=== PATIENT | female | born 1955 | race Caucasian/White ===

== ENCOUNTER → 2016-05-19 | Outpatient (CLI) | payer BC ==
--- NOTE | 2016-05-19 12:01 | CT ---
EXAMINATION TYPE: CT abdomen pelvis w con DATE OF EXAM: 05/19/2016 11:46 AM HISTORY: Colon Cancer progress study. CT DLP: 2206.70mGycm Automated Exposure Control for Dose Reduction was Utilized. CONTRAST: CT scan of the abdomen and pelvis is performed with IV Contrast, patient injected with 100 ml mL of O mnipaque 300. COMPARISON: CT abdomen pelvis September 20, 2015. PET/CT October 02, 2015. FINDINGS: LUNG BASES: There is new small right pleural effusion. There is new linear atelectatic change and/or scarring in both lung bases. LIVER/GB: There are new heterogeneous hypodense lesions scattered throughout the liver consistent wit h metastatic disease progression. For reference there is new 3.5 x 2.3 cm lesion anterior segment rig ht hepatic lobe on axial image 21. For reference there is new more posterior right hepatic lobe lesio n measuring 3.5 x 3.2 cm centrally on axial image 31. Diffuse or multifocal involvement of left lobe of liver is now present with marked heterogeneous hypodense area identified. Progression is noted. Ch olecystectomy clips are redemonstrated PANCREAS: No significant abnormality is seen. SPLEEN: Splenomegaly is redemonstrated measuring 14.4 cm on long axis coronal image 60 perhaps slight ly more prominent versus prior exam . ADRENALS: No significant abnormality is seen. KIDNEYS: Fitzpatrick catheter is seen in decompressed bladder. BOWEL: There is redemonstration of bowel containing ventral wall hernia. No suspicious bowel dilatati on is seen. Surgical changes from prior surgery with sutures at level of mid transverse colon and pro ximal sigmoid colon are redemonstrated. There is redemonstration of some prominence of fecal material present at both surgical levels consistent with mild stasis. UTERUS/ADNEXA: Uterus is surgically absent or markedly atrophic in appearance. LYMPH NODES: There is new abdominal adenopathy, for reference 3.0 x 2.2 cm perigastric lymph node ant erior to left adrenal gland is noted on axial image 23. For reference 2.0 x 1.6 cm lymph node charles h epatis anterior to IVC is noted on axial image 32. There is abnormal perigastric lymph node on axial image 18 also noted. OSSEOUS STRUCTURES: Hemangioma at L1 vertebral body level is redemonstrated. OTHER: No significant additional abnormality is seen. IMPRESSION: 1. Findings consistent with neoplastic progression as there is increase in size and number of diffuse hepatic metastatic disease. In addition there is new upper abdominal adenopathy or peritoneal deposi ts identified. RECIST CRITERIA: PROGRESSIVE DISEASE
== END | disposition home or self-care (01) ==
LOC: RADPROMAIN 11:02
PROVIDERS: ATTEND Internal Medicine Hematology & Oncology
DX: C18.9 Malignant neoplasm of colon, unspecified (principal)
CPT/HCPCS: 74177; Q9967

== ENCOUNTER 2016-05-20 10:50 | Inpatient (IN) | payer BC ==
[2016-05-20] MEDS ORDERED: SODIUM CHLORIDE 0.9% 1,000 ML IV STA (11:08)
[2016-05-20] MEDS ORDERED: SODIUM CHLORIDE 0.9% 500 ML IV STA (11:08)
--- NOTE | 2016-05-20 11:15 | ED ---
Weakness HPI - General Chief complaint: Weakness Stated complaint: Weakness Time Seen by Provider: 05/20/16 10:53 Source: patient, EMS Mode of arrival: EMS Limitations: no limitations - History of Present Illness Initial comments: This 60-year-old white female presents complaining of feeling weak and tired for the last 4 days. She had a temperature 100.6 earlier today. She's had a slight dry cough but denies any shortness of breath. She does have an indwelling Fitzpatrick catheter as well so denies any known urinary symptoms. She does have a somewhat complicated history. She apparently had colon cancer in 2013 which was treated surgically. They then found some liver lesions and she underwent chemotherapy this past year. She then was admitted to the hospital and found to have necrotizing fasciitis this past fall. She was transferred [facility] and underwent 8-9 surgical debridements. She subsequently spent rehab time and slept specialties for 49 days and then [facility]. She currently is at home still recovering from the necrotizing fasciitis but does have a visiting nurse daily. She still has chronic wounds that have been healing fairly well into her perineal region. She denies any other complaints or modifying factors. - Related Data Home Medications Medication Instructions Recorded Confirmed Hydrochlorothiazide [Hydrodiuril] 25 mg PO DAILY 11/11/13 02/18/16 Insulin Glargine,Hum.rec.anlog 20 units SQ HS 11/11/13 02/18/16 [Lantus Solostar] Lisinopril [Prinivil] 20 mg PO DAILY 11/19/14 02/18/16 ALPRAZolam [Xanax] 0.25 mg PO TID PRN 12/08/15 02/18/16 INSULIN LISPRO (humaLOG) [HumaLOG] See Protocol SQ AC-TID 12/08/15 02/18/16 Amino Acids/Protein Hydrolys 30 ml PO BID 02/18/16 02/18/16 [Pro-Stat Supplement] Amitriptyline HCl [Elavil] 25 mg PO HS 02/18/16 02/18/16 Ascorbic Acid [Vitamin C] 250 mg PO DAILY 02/18/16 02/18/16 Chlorpactin Powder 2 gm TOPICAL Q8H 02/18/16 02/18/16 Dakins Solution 1 applicate TOPICAL Q8H 02/18/16 02/18/16 Docusate Sodium [Dok] 100 mg PO BID 02/18/16 02/18/16 Gabapentin [Neurontin] 100 mg PO TID 02/18/16 02/18/16 HYDROcodone/APAP 7.5-325MG [Roosevelt 1 tab PO Q8H PRN 02/18/16 02/18/16 7.5-325] Ipratropium-Albuterol Nebulize 3 ml INHALATION Q4H PRN 02/18/16 02/18/16 [Duoneb 0.5 mg-3 mg/3 ml Soln] Levothyroxine Sodium [Synthroid] 150 mcg PO DAILY 02/18/16 02/18/16 Multivitamins, Thera [Multivitamin] 1 tab PO DAILY 02/18/16 02/18/16 Polyethylene Glycol 3350 [Miralax] 17 gm PO DAILY 02/18/16 02/18/16 Sennosides [Senokot] 8.6 mg PO BID 02/18/16 02/18/16 Warfarin [Coumadin] 3 mg PO DAILY 02/18/16 02/18/16 Zinc Sulfate [Orazinc] 220 mg PO DAILY 02/18/16 02/18/16 fentaNYL 25MCG/HR PATCH [Duragesic 25 mcg TRANSDERM Q72H 02/18/16 02/18/16 25MCG/HR] Allergies Allergy/AdvReac Type Severity Reaction Status Date / Time No Known Allergies Allergy Verified 05/20/16 10:51 Review of Systems ROS Statement: Those systems with pertinent positive or pertinent negative responses have been documented in the HPI. ROS Other: All systems not noted in ROS Statement are negative. Past Medical History Past Medical History: Cancer, Diabetes Mellitus, GERD/Reflux, Hyperlipidemia, Hypertension, Liver Disease, Skin Disorder, Thyroid Disorder Additional Past Medical History / Comment(s): heart murmer, colon cancer, liver cancer, MELANOMA, liver lesions on CT scan 09/10 History of Any Multi-Drug Resistant Organisms: None Reported Past Surgical History: Bowel Resection, Cholecystectomy, Hysterectomy Additional Past Surgical History / Comment(s): BOWEL RESECTION 10/2013- colostomy /later reversal. bilateral oopherectomy, exploratory laperotomy, SURG RT THIGH D/T MELANOMA. Past Anesthesia/Blood Transfusion Reactions: No Reported Reaction Past Psychological History: Anxiety Additional Psychological History / Comment(s): SEASONAL AFFECTIVE DISORDER Smoking Status: Never smoker Past Alcohol Use History: None Reported Past Drug Use History: None Reported - Past Family History Sister(s) Family Medical History: Cancer Additional Family Medical History / Comment(s): Colon General Exam - General Exam Comments Initial Comments: GENERAL: The patient is well nourished and well hydrated. VITAL SIGNS: Heart rate, blood pressure, respiratory rate reviewed as recorded in nurse's notes. EYES: Pupils are round and reactive. Extraocular movements are intact. No conjunctival / lid redness or swelling. ENT: No external evidence of injury, swelling, or ecchymosis. Airway is patent. Throat is clear. NECK: Nontender. No swelling or evidence of injury. No subcutaneous emphysema. Trachea is midline. No thyroid mass. HEART: Regular rate and rhythm. Good peripheral pulses. LUNGS/CHEST: Breath sounds clear and equal bilaterally. No rales, rhonchi, or wheezes. No ecchymosis, subcutaneous emphysema, or tenderness. ABDOMEN: Abdomen soft without tenderness. No palpable masses or organomegaly. No peritoneal signs. No abdominal wall swelling or ecchymosis. EXTREMITIES: No extremity tenderness. Normal muscle tone and function. No thoracolumbar tenderness. NEUROLOGIC: Sensation is grossly intact. Cranial nerve exam reveals face is symmetrical, tongue is midline, speech is clear. SKIN: There is healing wounds noted to the right groin as well as the perineal/ perirectal region. This appears to be healing fairly well. PSYCHIATRIC: Alert and oriented. Appropriate behavior and judgment. Limitations: no limitations Course Vital Signs 05/20/16 05/20/16 10:51 12:06 Temperature 99.3 F Pulse Rate 82 75 Respiratory 16 16 Rate Blood Pressure 141/60 119/66 O2 Sat by Pulse 98 93 L Oximetry Medical Decision Making - Medical Decision Making The patient was seen and examined. All diagnostics were reviewed. EKG shows a normal sinus rhythm at a rate of 74. No acute ST-T wave changes are noted. The FL interval is 134, QRS duration is 84 and QTC intervals 428. The chest x- ray shows multiple bilateral apparently healing rib fractures with pleural thickening compared to last exam. There is patchy atelectasis in the right lung. The urinalysis does show significant evidence of infection. She does have an indwelling Fitzpatrick catheter in place. There are other lab abnormalities, please review. There is a moderate leukocytosis. Overall, it is felt as though she does have urinary tract infection with the degree of sepsis. It is felt that she would require admission to the hospital for further treatment. She does have a history of cancer and is immunocompromised. She feels very weak and has a temperature. Rocephin is initiated. Case will be discussed with internal medicine in the near future and patient will be admitted to the hospital for further treatment. - Lab Data Result diagrams: 05/20/16 11:05 05/20/16 11:05 Lab Results 05/20/16 05/20/16 05/20/16 Range/Units 11:05 11:05 11:05 WBC (3.8-10.6) k/uL RBC (3.80-5.40) m/uL Hgb (11.4-16.0) gm/dL Hct (34.0-46.0) % MCV (80.0-100.0) fL MCH (25.0-35.0) pg MCHC (31.0-37.0) g/dL RDW (11.5-15.5) % Plt Count (150-450) k/uL Neutrophils % % Lymphocytes % % Monocytes % % Eosinophils % % Basophils % % Neutrophils # (1.3-7.7) k/uL Lymphocytes # (1.0-4.8) k/uL Monocytes # (0-1.0) k/uL Eosinophils # (0-0.7) k/uL Basophils # (0-0.2) k/uL Anisocytosis Microcytosis Sodium 131 L (137-145) mmol/L Potassium 5.0 (3.5-5.1) mmol/L Chloride 92 L (98-107) mmol/L Carbon Dioxide 28 (22-30) mmol/L Anion Gap 11 mmol/L BUN 18 H (7-17) mg/dL Creatinine 0.89 (0.52-1.04) mg/dL Est GFR (MDRD) Af Amer >60 (>60 ml/min/1.73 sqM) Est GFR (MDRD) Non-Af >60 (>60 ml/min/1.73 sqM) Glucose 289 H (74-99) mg/dL Plasma Lactic Acid Sacha 1.9 (0.7-2.0) mmol/L Calcium 8.5 (8.4-10.2) mg/dL Phosphorus 3.9 (2.5-4.5) mg/dL Magnesium 1.7 (1.6-2.3) mg/dL Total Bilirubin 1.4 H (0.2-1.3) mg/dL AST 87 H (14-36) U/L ALT 38 (9-52) U/L Alkaline Phosphatase 444 H (38-126) U/L Total Protein 6.8 (6.3-8.2) g/dL Albumin 3.0 L (3.5-5.0) g/dL Urine Color Urine Appearance (Clear) Urine pH (5.0-8.0) Ur Specific [place] (1.001-1.035) Urine Protein (Negative) Urine Glucose (UA) (Negative) Urine Ketones (Negative) Urine Blood (Negative) Urine Nitrite (Negative) Urine Bilirubin (Negative) Urine Urobilinogen (<2.0) mg/dL Ur Leukocyte Esterase (Negative) Urine RBC (0-5) /hpf Urine WBC (0-5) /hpf Urine Bacteria (None) /hpf Urine Mucus (None) /hpf Urine Yeast (Budding) (None) /hpf Influenza Type A RNA Not Detected (Not Detectd) Influenza Type B (PCR) Not Detected (Not Detectd) 05/20/16 05/20/16 Range/Units 11:05 11:05 WBC 10.7 H (3.8-10.6) k/uL RBC 4.02 (3.80-5.40) m/uL Hgb 10.3 L (11.4-16.0) gm/dL Hct 31.8 L (34.0-46.0) % MCV 79.2 L (80.0-100.0) fL MCH 25.7 (25.0-35.0) pg MCHC 32.4 (31.0-37.0) g/dL RDW 17.5 H (11.5-15.5) % Plt Count 299 (150-450) k/uL Neutrophils % 85 % Lymphocytes % 7 % Monocytes % 4 % Eosinophils % 1 % Basophils % 0 % Neutrophils # 9.2 H (1.3-7.7) k/uL Lymphocytes # 0.8 L (1.0-4.8) k/uL Monocytes # 0.4 (0-1.0) k/uL Eosinophils # 0.1 (0-0.7) k/uL Basophils # 0.0 (0-0.2) k/uL Anisocytosis Slight Microcytosis Slight Sodium (137-145) mmol/L Potassium (3.5-5.1) mmol/L Chloride (98-107) mmol/L Carbon Dioxide (22-30) mmol/L Anion Gap mmol/L BUN (7-17) mg/dL Creatinine (0.52-1.04) mg/dL Est GFR (MDRD) Af Amer (>60 ml/min/1.73 sqM) Est GFR (MDRD) Non-Af (>60 ml/min/1.73 sqM) Glucose (74-99) mg/dL Plasma Lactic Acid Sacha (0.7-2.0) mmol/L Calcium (8.4-10.2) mg/dL Phosphorus (2.5-4.5) mg/dL Magnesium (1.6-2.3) mg/dL Total Bilirubin (0.2-1.3) mg/dL AST (14-36) U/L ALT (9-52) U/L Alkaline Phosphatase (38-126) U/L Total Protein (6.3-8.2) g/dL Albumin (3.5-5.0) g/dL Urine Color Coffee Urine Appearance Turbid H (Clear) Urine pH 5.5 (5.0-8.0) Ur Specific [place] 1.026 (1.001-1.035) Urine Protein 2+ H (Negative) Urine Glucose (UA) Trace H (Negative) Urine Ketones Negative (Negative) Urine Blood Trace H (Negative) Urine Nitrite Positive H (Negative) Urine Bilirubin 1+ H (Negative) Urine Urobilinogen 6.0 (<2.0) mg/dL Ur Leukocyte Esterase Large H (Negative) Urine RBC 51 H (0-5) /hpf Urine WBC >182 H (0-5) /hpf Urine Bacteria Many H (None) /hpf Urine Mucus Few H (None) /hpf Urine Yeast (Budding) Many H (None) /hpf Influenza Type A RNA (Not Detectd) Influenza Type B (PCR) (Not Detectd) Disposition Clinical Impression: Diabetes mellitus, Weakness, Sepsis secondary to UTI, Fever, History of necrotising fasciitis, Hyperglycemia, Anemia, Hypochloremia, Hyponatremia, Liver cancer, Rib fractures, Atelectasis Disposition: ADMITTED IP TO THIS HOSP Condition: Fair Referrals: Haris Mcghee MD [Primary Care Provider] - 1-2 days Time of Disposition: 12:12 Decision Date: 05/20/16 Decision Time: 12:12
[2016-05-20 11:40] LABS: Anisocytosis Slight; Basophils % (A) 0 %; CH 25.6; CHCM 32.3; Eosinophils # (A) 0.1 k/uL (0-0.7); Eosinophils % (A) 1 %; HCT 31.8 % (34.0-46.0); HDW 2.73; HGB 10.3 gm/dL (11.4-16.0); Luc # (Auto) 0.25; Luc % (Auto) 2; Lymphocytes # (A) 0.8 k/uL (1.0-4.8); Lymphocytes % (A) 7 %; MCH 25.7 pg (25.0-35.0); MCHC 32.4 g/dL (31.0-37.0); MCV 79.2 fL (80.0-100.0); Mean Platelet Volume 7.5; Microcytosis Slight; Monocytes # (A) 0.4 k/uL (0-1.0); Monocytes % (A) 4 %; Neutrophils # (A) 9.2 k/uL (1.3-7.7); Neutrophils % (A) 85 %; RBC 4.02 m/uL (3.80-5.40); RDW 17.5 % (11.5-15.5); WBC 10.7 k/uL (3.8-10.6); WBC (Perox) 11.37
[2016-05-20 11:50] LABS: Appearance,Urine Turbid (Clear); Bacteria,Urine Many /hpf; Bilirubin,Urine 1+ (Negative); Glucose,Urine (UA) Trace (Negative); Ketones,Urine Negative (Negative); Leukocyte Esterase,Urine Large (Negative); Mucus,Urine Few /hpf; Nitrite,Urine Positive (Negative); PH, Urine 5.5 (5.0-8.0); Particle Count 50648; Protein,Urine 2+ (Negative); RBC,Urine 51 /hpf (0-5); Specific Gravity,Urine 1.026 (1.001-1.035); UA Billing (MACRO vs. MICRO) MICRO; WBC,Urine >182 /hpf (0-5)
[2016-05-20 11:52] LABS: ALT 38 U/L (9-52); AST 87 U/L (14-36); Alkaline Phosphatase 444 U/L (38-126); Anion Gap 11 mmol/L; Blood Urea Nitrogen 18 mg/dL (7-17); Calcium 8.5 mg/dL (8.4-10.2); Carbon Dioxide 28 mmol/L (22-30); Chloride 92 mmol/L (98-107); Glucose 289 mg/dL (74-99); Magnesium 1.7 mg/dL (1.6-2.3); Non-African American GFR(MDRD) >60 (>60 ml/min/1.73 sqM); Phosphorous 3.9 mg/dL (2.5-4.5); Sodium 131 mmol/L (137-145); Total Bilirubin 1.4 mg/dL (0.2-1.3); Total Protein 6.8 g/dL (6.3-8.2)
--- NOTE | 2016-05-20 12:08 | XR ---
EXAMINATION TYPE: XR chest 2V DATE OF EXAM: 05/20/2016 12:00 PM COMPARISON: 12/10/2015 HISTORY: Cough and fever TECHNIQUE: Frontal and lateral views of the chest are obtained. FINDINGS: Heart and mediastinum are normal. There are multiple bilateral old healed rib fractures. T here is a right-sided central venous catheter with the tip in the superior vena cava. There are chest leads. There is no sign of pleural effusion. There is mild linear density in the right middle lobe. There is mild linear density at the right posterior lung base. IMPRESSION: There are new multiple bilateral apparent healing rib fractures with pleural thickening compared to last exam. Normal heart. Patchy atelectasis in the right lung.
[2016-05-20 12:17] LABS: INR 1.5 (<1.1); Prothrombin Time 14.2 sec (9.0-12.0)
[2016-05-20 12:19] LABS: Creatine Kinase 128 U/L (30-135)
[2016-05-20] MEDS ORDERED: ACETAMINOPHEN TAB 325 MG TAB PO PRN (12:24)
[2016-05-20] MEDS ORDERED: ONDANSETRON 4 MG/2 ML VIAL IVP PRN (12:24)
[2016-05-20] MEDS ORDERED: NALOXONE 0.4 MG/ML 1 ML VIAL IV PRN (12:24)
[2016-05-20 12:32] LABS: Creatine Kinase MB <0.2 ng/mL (0.0-2.4); Troponin I <0.012 ng/mL (0.000-0.034)
[2016-05-20 12:52] LABS: Hemoglobin A1C 8.3 % (4.2-6.1)
--- NOTE | 2016-05-20 13:15 | P.HPIM ---
History of Present Illness H&P Date: 05/20/16 Chief Complaint: UTI with sepsis This is a 60-year-old female one of Dr. Mcghee with a previous medical history significant for hypertension and hypertensive cardiovascular disease, diabetes mellitus type 2, hyperthyroidism, melanoma, obesity, patient was diagnosed with colon cancer back in 2013 underwent partial colectomy has been under the surveillance screening with Dr. Solis when she was diagnosed with recurrence of her disease back in August 2015 after she had a computed tomographic scan that showed a liver metastatic case is ended up going for biopsy that confirmed the diagnosis of adenocarcinoma of the colon and subsequently underwent PET scan in 10/05/2015 and she had a port placed and did receive 4 cycles of chemotherapy in the form of Avastin, 5 floor uracil, and cisplatin, patient ended up seeing a equipment operator wage hand at [facility] Dr. Barr, was supposed to remove half of the liver but because of the advanced nature of that metastatic disease and being closer to a blood vessel it was decided to send the patient for more chemotherapy before deciding on any surgical intervention, patient unfortunately developed to have a boil in her right labia back in November 2015 where she was found to have a severe diabetic ketoacidosis after she was admitted to the hospital and she was found to have a glucose of 800 was treated for that and she was found to have an elevated d- dimer for which she underwent CT angiography that showed bilateral pulmonary emboli was started on heparin drip at that time she was admitted to the intensive care unit at our institution and she was seen by pulmonary medicine as well as by oncology and she was complaining of increased pain in the left groin and she was diagnosed with necrotizing fasciitis subsequently she was seen by general surgery Dr. Felipe ended up going for surgery however because of her status she ended up getting transferred to [facility] for further care was intubated and she stayed there for about 2 weeks and after that she went to [facility] on 12/29/2015 and left to [facility] on the [place] for physical therapy rehabilitation and she was under my care at that point up until recently when she was discharged home and she was supposed to follow-up with her doctor as an outpatient, patient apparently underwent computed tomography scan of the abdomen yesterday that was ordered by for reevaluation of her metastatic disease and developed to have generalized weakness and not able to do much she ended up coming to the ER after she contacted her oncologist she was found to have urinary tract infection with sepsis she was given 1 dose of Rocephin was admitted to hospital urine culture as well as blood culture were obtained. Review of Systems Constitutional: Reports fatigue, Reports malaise, Reports weakness, Denies weight gain, Denies weight loss Eyes: denies blurred vision, denies bulging eye, denies decreased vision Ears: deny: decreased hearing Ears, nose, mouth and throat: Denies dysphagia, Denies neck lump, Denies swelling in throat, Denies sore throat Cardiovascular: Reports high blood pressure, Denies chest pain, Denies dyspnea on exertion, Denies edema, Denies paroxysmal nocturnal dyspnea, Denies phlebitis , Denies rapid heart beat, Denies shortness of breath Respiratory: Denies congestion, Denies cough, Denies cough with sputum, Denies home oxygen, Denies sleep apnea, Denies snoring, Denies wheezing Gastrointestinal: Denies abdominal pain, Denies bloating, Denies BRBPR, Denies excessive gas, Denies heartburn, Denies hematemesis, Denies melena, Denies nausea, Denies vomiting Genitourinary: Reports dysuria, Denies hematuria Menstruation: Reports postmenopausal Musculoskeletal: Denies myalgias Musculoskeletal: absent: ankle pain, ankle stiffness, ankle swelling, elbow pain , elbow stiffness, elbow swelling, foot pain, foot stiffness, foot swelling, hand pain, hand stiffness, hand swelling, hip pain, hip stiffness, hip swelling , knee pain, knee stiffness, knee swelling, shoulder pain, shoulder stiffness, shoulder swelling, wrist pain, wrist stiffness, wrist swelling Integumentary: Reports wounds (Right groin wound secondary to necrotizing fasciitis surgery) Neurological: Denies numbness, Denies weakness Psychiatric: Denies anxiety, Denies depression Endocrine: Denies fatigue, Denies weight change Past Medical History Past Medical History: Cancer, Diabetes Mellitus, GERD/Reflux, Hyperlipidemia, Hypertension, Liver Disease, Pulmonary Embolus (PE), Skin Disorder, Thyroid Disorder Additional Past Medical History / Comment(s): heart murmer, colon cancer, liver cancer, MELANOMA, liver lesions on CT scan 09/10 History of Any Multi-Drug Resistant Organisms: None Reported Past Surgical History: Bowel Resection, Cholecystectomy, Hysterectomy Additional Past Surgical History / Comment(s): BOWEL RESECTION 10/2013- colostomy /later reversal. bilateral oopherectomy, exploratory laperotomy, SURG RT THIGH D/T MELANOMA, exploratory laparotomy with sigmoidectomy, loop colostomy with colostomy reversal, resection of melanoma, total abdominal hysterectomy with bilateral salpingo-oophorectomy, EGD and colonoscopy 2014, necrotizing fasciitis of the right labia post 9 surgical interventions an initial wound greater than 45 cm Past Anesthesia/Blood Transfusion Reactions: No Reported Reaction Past Psychological History: Anxiety Additional Psychological History / Comment(s): SEASONAL AFFECTIVE DISORDER Smoking Status: Never smoker Past Alcohol Use History: None Reported Past Drug Use History: None Reported - Past Family History Sister(s) Family Medical History: Cancer, Diabetes Mellitus (Patient has 2 sisters one with diabetes mellitus type 2 and has never ) Additional Family Medical History / Comment(s): Colon Mother Family Medical History: Diabetes Mellitus, Hypertension (Mother is 87-year-old has history of diabetes and hypertension.) Father Family Medical History: Renal Disease (Father at age of 74 from acute renal failure.) Brother(s) Family Medical History: No Reported History (Patient has 2 brothers no major medical problems.) Medications and Allergies Home Medications Medication Instructions Recorded Confirmed Type Insulin Glargine,Hum.rec.anlog 30 units SQ HS 11/11/13 05/20/16 History [Lantus Solostar] Lisinopril [Prinivil] 20 mg PO DAILY 11/19/14 05/20/16 History ALPRAZolam [Xanax] 0.25 mg PO TID PRN 12/08/15 05/20/16 History INSULIN LISPRO (humaLOG) [HumaLOG] See Protocol SQ AC-TID 12/08/15 05/20/16 History Amitriptyline HCl [Elavil] 25 mg PO HS 02/18/16 05/20/16 History Gabapentin [Neurontin] 100 mg PO Q8H 02/18/16 05/20/16 History Hydrochlorothiazide 25 mg PO DAILY 05/20/16 05/20/16 History Levothyroxine Sodium [Synthroid] 175 mcg PO DAILY 05/20/16 05/20/16 History Ondansetron HCl [Zofran] 4 mg PO Q6H PRN 05/20/16 05/20/16 History Rivaroxaban [Xarelto] 15 mg PO DAILY 05/20/16 05/20/16 History Allergies Allergy/AdvReac Type Severity Reaction Status Date / Time No Known Allergies Allergy Verified 05/20/16 10:51 Physical Exam Vitals: Vital Signs Temp Pulse Resp BP Pulse Ox 05/20/16 12:06 75 16 119/66 93 L 05/20/16 10:51 99.3 F 82 16 141/60 98 Intake and Output 05/19/16 05/20/16 05/20/16 22:59 06:59 14:59 Other: Weight 110.677 kg Patient Weight 05/21/16 06:59 Weight 110.677 kg - Constitutional General appearance: mild distress, obese - EENT Eyes: anicteric sclerae, EOMI, PERRLA, no ptosis, no scleral icterus, normal appearance ENT: NA/AT, normal oropharynx, no thrush Ears: bilateral: normal - Neck Neck: no lymphadenopathy, normal ROM, no rigidity, no stridor, no thyromegaly Carotids: bilateral: upstroke normal Thyroid: bilateral: normal size - Respiratory Respiratory: bilateral: diminished, negative: dullness, rales, rhonchi, wheezing , prolonged expiration, prolonged inspiration - Cardiovascular Rhythm: regular Heart sounds: normal: S1, S2 Abnormal Heart Sounds: systolic murmur - Gastrointestinal General gastrointestinal: normal bowel sounds, soft, no splenomegaly, no tenderness, umbilical hernia, ventral hernia - Integumentary Integumentary: normal, ulcer (There is one in the right groin secondary to muscle surgical intervention for necrotizing fasciitis) - Neurologic Neurologic: CNII-XII intact - Musculoskeletal Musculoskeletal: gait normal - Psychiatric Psychiatric: A&O x's 3, appropriate affect, intact judgment & insight Results CBC & Chem 7: 05/20/16 11:05 05/20/16 11:05 Labs: Abnormal Lab Results - Last 24 Hours (Table) 05/20/16 05/20/16 05/20/16 Range/Units 11:05 11:05 11:05 WBC 10.7 H (3.8-10.6) k/uL Hgb 10.3 L (11.4-16.0) gm/dL Hct 31.8 L (34.0-46.0) % MCV 79.2 L (80.0-100.0) fL RDW 17.5 H (11.5-15.5) % Neutrophils # 9.2 H (1.3-7.7) k/uL Lymphocytes # 0.8 L (1.0-4.8) k/uL PT 14.2 H (9.0-12.0) sec Sodium 131 L (137-145) mmol/L Chloride 92 L (98-107) mmol/L BUN 18 H (7-17) mg/dL Glucose 289 H (74-99) mg/dL Total Bilirubin 1.4 H (0.2-1.3) mg/dL AST 87 H (14-36) U/L Alkaline Phosphatase 444 H (38-126) U/L Albumin 3.0 L (3.5-5.0) g/dL Urine Appearance (Clear) Urine Protein (Negative) Urine Glucose (UA) (Negative) Urine Blood (Negative) Urine Nitrite (Negative) Urine Bilirubin (Negative) Ur Leukocyte Esterase (Negative) Urine RBC (0-5) /hpf Urine WBC (0-5) /hpf Urine Bacteria (None) /hpf Urine Mucus (None) /hpf Urine Yeast (Budding) (None) /hpf 05/20/16 Range/Units 11:05 WBC (3.8-10.6) k/uL Hgb (11.4-16.0) gm/dL Hct (34.0-46.0) % MCV (80.0-100.0) fL RDW (11.5-15.5) % Neutrophils # (1.3-7.7) k/uL Lymphocytes # (1.0-4.8) k/uL PT (9.0-12.0) sec Sodium (137-145) mmol/L Chloride (98-107) mmol/L BUN (7-17) mg/dL Glucose (74-99) mg/dL Total Bilirubin (0.2-1.3) mg/dL AST (14-36) U/L Alkaline Phosphatase (38-126) U/L Albumin (3.5-5.0) g/dL Urine Appearance Turbid H (Clear) Urine Protein 2+ H (Negative) Urine Glucose (UA) Trace H (Negative) Urine Blood Trace H (Negative) Urine Nitrite Positive H (Negative) Urine Bilirubin 1+ H (Negative) Ur Leukocyte Esterase Large H (Negative) Urine RBC 51 H (0-5) /hpf Urine WBC >182 H (0-5) /hpf Urine Bacteria Many H (None) /hpf Urine Mucus Few H (None) /hpf Urine Yeast (Budding) Many H (None) /hpf Thrombosis Risk Factor Assmnt - DVT/VTE Prophylaxis DVT/VTE Prophylaxis: Pharmacologic Prophylaxis ordered Assessment and Plan Plan: Assessment and plan: 1. UTI with sepsis. Check urine culture and blood culture, start the patient on Rocephin 1 g IV piggyback every 24 hours. Obtain ID consultation from Dr. Rodriguez. 2. Bilateral pulmonary emboli. Continue patient on Xarelto 15mg orally bid. 3. History of necrotizing fasciitis of the right groin status post multiple surgical intervention. Continue current local care with Dakin solution for the right groin. 4. Diabetes mellitus type 2. Continue Lantus 30 units at bedtime along with sliding scale insulin. BGM before each meal and at bedtime. 5. Stage IV colon cancer with liver metastasis. Hematology oncology consultation, patient did have a computed tomography scan of the abdomen yesterday the result of which still pending. 6. Hypertension and hypertensive cardiovascular disease. Continue lisinopril 20 mg orally once every day. 7. Hypothyroidism. Continue patient on Synthroid 175 g orally once every day. 8. Bilateral lower extremity edema. Continue patient on hydrochlorothiazide 25 mg orally once every day. 9. Anxiety and panic attacks. Continue patient on Xanax 0.25 milligrams orally 2 times every day as needed. 10. Diabetic polyneuropathy. Continue gabapentin 100 mg orally 3 times every day and amitriptyline 25 mg at bedtime. 11. Constipation. Continue patient on current bowel care. 12. DVT prophylaxis. Continue Xarelto 15 mg orally bid. 13. GI prophylaxis. Continue patient on PPI. 14. Generalized weakness. Physical therapy evaluation tomorrow morning. 15. Full code. 16. Prognosis is guarded.
[2016-05-20 13:26] LABS: Glucose,Whole Blood 282 mg/dL (75-99)
[2016-05-20 13:43] VITALS: BMI 40.6
[2016-05-20] MEDS: INSULIN LISPRO (humaLOG) 300 UNIT/3 ML VIAL SQ SCH ×3 (14:20→21:24)
--- NOTE | 2016-05-20 16:06 | CONS ---
DATE OF CONSULTATION: 05/20/2016 REASON FOR CONSULTATION: Urinary tract infection and sepsis. HISTORY OF PRESENT ILLNESS: The patient is a 60-year-old female with recently complicated past medical history including an episode of a necrotizing fasciitis involving the right groin and posterior thigh area for which the patient did have initial surgery here and subsequently was transferred to [facility]. After stabilization, the patient was in [facility] followed by [facility] on the [place] and now at home and currently getting her local wound care through Dr. Dhillon. The patient's last chemo has been in November 2015 and has been advised by her oncologist if she has any fever above 100.4 that she needs go to the ER. The patient did have a CT of her abdomen and pelvis done yesterday. It did show overall progression of her liver metastasis. The patient did have a fever of 100.6 this morning. The patient has been feeling weak and lethargic. Subsequently patient presented to the hospital for further evaluation. The patient denies any URI symptom. She has very mild cough, but denies having any shortness of breath or any chest pain. No sputum production. The patient denies significant abdominal pain. The patient did have chronic indwelling Fitzpatrick catheter. It was last changed about 2 weeks ago. referable to the same. The patient denies having any diarrhea. The wounds on the right groin extending to the posterior thigh area currently being treated with Aquacel Silver dressing with no significant symptoms referable to the same. Patient with fever of 99.3, white count was 10.7. She did have a UA obtained from the Fitzpatrick that was positive getting the diagnosis of urinary tract infection. She was started on Rocephin and admitted to the hospital. I was asked to see the patient for further recommendation regarding antibiotic therapy. She did have influenza PCR that was negative. Chest x-ray showed some atelectasis, but no definite pneumonia. REVIEW OF SYSTEMS: CONSTITUTIONAL: Positive for weakness and low-grade fever. EYES: No complaint. ENT: No complaint. RESPIRATORY: As per HPI. CARDIOVASCULAR: No complaint. GENITOURINARY: As per HPI. GASTROINTESTINAL: No complaint. MUSCULOSKELETAL: No complaint. INTEGUMENTARY: No complaint. PSYCHOLOGIC: No complaint. ENDOCRINE: No complaint. NEUROLOGIC: No complaint. PAST MEDICAL HISTORY: Metastatic colon cancer, necrotizing fasciitis, diabetes mellitus, hypertension, hyperlipidemia, pulmonary embolism, hypothyroidism. PAST SURGICAL HISTORY: Bowel resection, cholecystectomy, hysterectomy and extensive dissection of the skin and soft tissue of the groin and posterior thigh area for necrotizing fasciitis. SOCIAL HISTORY: No history of smoking, drinking or drug use. FAMILY HISTORY: Sister with a history of diabetes and colon cancer. Mother with history of hypertension and diabetes. Father with history of renal disease. ALLERGIES: No known drug allergies. MEDICATIONS: Currently include the patient is on Tylenol, Xanax, Elavil, Rocephin 1 gram daily. She is on Neurontin, hydrochlorothiazide, Lantus, Humalog, Synthroid, Zestril, Narcan, Zofran, Protonix, Xarelto. On examination, blood pressure is 153/88 with a pulse of 83. Temperature 98.8. She is 98% on room air. General description is a middle-age female lying in bed in no distress. No tachypnea or accessory muscle of respiration use. HEENT examination shows pallor. There is no scleral icterus. Oral mucous membrane is dry. NECK: Trachea central. There is no thyromegaly. LUNGS: Unlabored breathing. Clear to auscultation anteriorly. No wheeze or crackle. HEART: S1, S2. Regular rate and rhythm. ABDOMEN: Soft, no tenderness. No guarding or rigidity. Examination of the right groin and posterior thigh wound with no significant slough tissue. No surrounding erythema or any foul smelling drainage. GENITOURINARY: The patient did have Fitzpatrick catheter draining some dark urine. NEUROLOGICAL: The patient is awake, alert, oriented x3. Mood and affect normal. LABS: Hemoglobin is 10.1, white count of 10.7 with BUN of 18, creatinine 0.89. Bilirubin slightly elevated in addition to the AST. Urine has been positive and that has been obtained from the Fitzpatrick. DIAGNOSTIC IMPRESSION AND PLAN: 1. Patient admitted to the hospital with weakness, lethargy in a patient who has chronic Fitzpatrick catheter with urinalysis obtained from the same is positive with a question of possible urinary colonization rather than a true urinary tract infection as the patient is not having a significant high-grade fever or any significant elevated white count. Urinalysis will be positive from catheter now and may be indicating possible asymptomatic bacteriuria. However, we do not have any other clinical focus of infection with this patient. Chest x-ray reported to be negative for any pneumonia. The wound on the groin and posterior thigh area looks clean without evidence of any cellulitis. She did have CT of the abdomen and pelvis yesterday that did show some progression of her liver mets and no evidence of any abscess. PLAN: 1. We will change her Fitzpatrick catheter and obtain urine culture from the new Fitzpatrick. If the UA from the new Fitzpatrick is negative, antibiotic can be safely discontinued. For now continue the patient on Rocephin. 2. Apply Aquacel Silver dressing to the right groin and posterior thigh wound. 3. The patient is known to Dr. Rodriguez. Will sign out to him who will follow patient as of tomorrow. [facility]
--- NOTE | 2016-05-20 16:31 | CONS ---
DATE OF CONSULTATION: May 20, 2016. REASON FOR CONSULTATION: Colon cancer. CHIEF COMPLAINT: Fever and weakness. HISTORY OF PRESENT ILLNESS: Afsaneh is a very pleasant, 60-year-old lady very well-known to our practice. She has been under the care of Dr. Elliott since November 2013. In October 2013 she was diagnosed with sigmoid colon cancer. It was high risk Stage II due to high nuclear grade and bowel obstruction at the time of her diagnosis. This is adjuvant systemic treatment was recommended to her at that time, but she declined it and she opted for observation. She did well until August 2015 when she was found to have multiple liver lesions which were biopsy proven to be metastatic colon cancer. She had a PET scan done at that time which did not reveal any evidence of extrahepatic metastases. The patient was referred to the liver surgeon at Dr. Muñoz at [facility] for consideration of either partial hepatectomy or radioablative surgery based on her response to systemic treatment. The patient subsequently started after she was seen by Dr. Muñoz, she was started on systemic chemotherapy with a combination of utilization of mFOLFOX 6 Regimen plus Avastin regimen. She did have a total of 4 cycles, last one was in November 2015 but fortunately, she developed significant necrotizing fasciitis involving her right groin which required extensive surgical treatment locally at [facility]. Subsequently she was airlifted to [facility] and required multiple debridement and then subsequently she had prolonged rehabilitation initially at [facility] and then subsequently at [facility] where she stayed for a prolonged period of time after recently. She still has an indwelling Fitzpatrick catheter, which she has had for about 4 months. She did try to remove it but because of contact with area of necrotizing fasciitis and impairing the wound to healing, Fitzpatrick catheter was reinserted. She was again recently discharged home and she was seen by Dr. Elliott. During her hospital stay, she also she developed deep venous thrombosis and pulmonary emboli. As stated, she was recently discharged home from [facility] and she was recently seen by Dr. Elliott on 05/12/2016 and her prior visit was in November 2015. The plan was to continue her with anticoagulation and repeat her imaging studies and reconsider systemic treatment options based on her improvement and her performance status. However, the patient was brought into the emergency department yesterday because she spiked a fever of 100.6. She was feeling very tired and drowsy. She was advised to go to proceed to the emergency department. Her work-up in the emergency department including urinalysis revealed that urine was positive for nitrate with significant amount of WBC and RBC in the urine and yeast as well and budding yeast as well. Started on IV hydration and IV antibiotics and she ended up being admitted to the hospital. Overall just feels tired. She has some nausea off and on. She has an indwelling Fitzpatrick catheter. She has no diarrhea. She has lost a lot of weight during her prolonged hospital stay. No headaches. No dysphagia. No melena, hematochezia, hematuria, hemoptysis, hematemesis or epistaxis. PAST MEDICAL HISTORY: In addition to what is stated above, in regard to metastatic colon cancer. She has a history of diabetes and recent necrotizing fasciitis. She has a history of diabetes, hyperlipidemia, hypertension, pulmonary emboli, deep venous thrombosis and hypothyroidism. She has a heart murmur. She had bowel colon resection and partial colon resection for bowel obstruction. Initially she had a colostomy and then subsequently she had revision of her colostomy. Also she has a history of cholecystectomy and hysterectomy, she has a history of right thigh melanoma and bilateral which was excised. She had bilateral salpingo-oophorectomy, hysterectomy, EGD and colonoscopy. FAMILY HISTORY: For malignancy, she had a sister who had colon carcinoma at age 45. She has a maternal uncle he had colon cancer at age 70 and she has a maternal aunt who had colon cancer at age 75. ALLERGIES: No known drug allergies. Her medications are reviewed in her electronic medical record. On physical examination she is alert and oriented x3. She does not appear to be in distress at this time. REVIEW OF SYSTEMS: As stated above in the history of present illness, otherwise negative. On physical examination, alert, oriented x3 in no acute distress at this time. Well-developed, well-nourished. Her vital signs are temperature 98.3, afebrile, pulse 83 regular, respirations 16, blood pressure 153/88, pulse ox 98% on room air. HEENT: Normocephalic, atraumatic. No obvious icterus. NECK: Supple. No jugular venous distention. CHEST: Equal expansion bilaterally. Lungs clear to auscultation and percussion. HEART: Regular rate and rhythm. ABDOMEN: Soft. She has some tenderness in the right upper quadrant and epigastric area. No obvious ascites. EXTREMITIES: 1+ edema. SKIN: No significant bruises, ecchymosis or petechiae. LYMPHATICS: No peripherally enlarged cervical, supraclavicular lymphadenopathy. MUSCULOSKELETAL: No percussion tenderness detected over spine or sternum. LABORATORY DATA: WBC 10.7, hemoglobin 10.3, hematocrit 31.8, platelets are 299. Sodium 131, potassium 5.0, chloride 92, CO2 is 28, BUN 18, creatinine 0.8, total bilirubin is 1.8, AST 87, AST 38, alkaline phosphatase 444. IMPRESSIONS: 1. Metastatic colon cancer with diagnostic and therapeutic circumstances as stated above in the history of present illness, however, she has been off therapy since November 2015 due to significant necrotizing fasciitis as stated above, which required multiple surgical debridement and prolonged recovery and rehabilitation. Certainly in the interval, she may have evidence she probably has developed a progression of her disease. I am concerned with her elevated alkaline phosphatase it could be indicative of progressive liver metastasis. She just had a CT scan of the chest, abdomen, and pelvis yesterday, which results are pending at this point in time, but certainly this is concerning, certainly the clinical picture is concerning for possible progression. 2. Fever and progressive weakness in part probably related to urinary tract infection with sepsis. Is already started on IV antibiotics, and await infectious disease consultation is was placed. 3. Multiple other comorbidities. RECOMMENDATIONS: 1. Continue current antibiotics for now. 2. The patient is overall condition is still at this time systemic treatment for her metastatic colon carcinoma. She has upcoming appointment next week with Dr. Elliott follow-up to discuss her CT scan resolved and further treatment options but for the time being may continue treating her sepsis and based on her overall improvement and based on the CT scan results further decision in regard to systemic treatment would be made will be made. Initially when she had metastatic disease her metastases was limited to the liver and there was contemplation for possible liver directed therapy after her response to systemic therapy. She was evaluated by Dr. Muñoz, however, no treatment was provided due to intermittent comorbidities as stated above. The above was discussed with the patient. I have answered all her questions to her satisfaction. Thank you very much for asking me to participate in the care of this nice lady.
[2016-05-20] MEDS: GABAPENTIN 100 MG CAP PO SCH (17:31)
[2016-05-20 17:40] LABS: Glucose,Whole Blood 220 mg/dL (75-99)
[2016-05-20] MEDS: ALPRAZolam 0.25 MG TAB PO PRN (19:55)
[2016-05-20 20:38] LABS: Amorphous Sediment,Urine Rare /hpf; Appearance,Urine Cloudy (Clear); Bacteria,Urine Many /hpf; Bilirubin,Urine 1+ (Negative); Glucose,Urine (UA) Negative (Negative); Ketones,Urine Negative (Negative); Leukocyte Esterase,Urine Large (Negative); Nitrite,Urine Negative (Negative); PH, Urine 5.5 (5.0-8.0); Particle Count 17880; Protein,Urine 1+ (Negative); RBC,Urine 6 /hpf (0-5); Specific Gravity,Urine 1.021 (1.001-1.035); Squamous Epithelial Cell,Urine 1 /hpf (0-4); UA Billing (MACRO vs. MICRO) MICRO; WBC,Urine >182 /hpf (0-5)
[2016-05-20 21:24] LABS: Glucose,Whole Blood 225 mg/dL (75-99)
[2016-05-20] MEDS: AMITRIPTYLINE HCL 25 MG TAB PO SCH (21:24)
[2016-05-20] MEDS: INSULIN GLARGINE 100 UNIT/ML 10 ML VIAL SQ SCH (21:26)
[2016-05-21] MEDS: GABAPENTIN 100 MG CAP PO SCH ×4 (00:07→23:55)
[2016-05-21] MEDS: LEVOTHYROXINE 100 MCG TAB PO SCH (06:21)
[2016-05-21] MEDS: LEVOTHYROXINE 75 MCG TAB PO SCH (06:22)
[2016-05-21 07:27] LABS: Glucose,Whole Blood 163 mg/dL (75-99)
[2016-05-21] MEDS: INSULIN LISPRO (humaLOG) 300 UNIT/3 ML VIAL SQ SCH ×4 (08:25→21:44)
[2016-05-21] MEDS: PANTOPRAZOLE 40 MG/10 ML VIAL IV SCH (08:26)
[2016-05-21] MEDS: RIVAROXABAN 15 MG TAB PO SCH (08:26)
[2016-05-21] MEDS: HYDROCHLOROTHIAZIDE 25 MG TAB PO SCH (08:27)
[2016-05-21] MEDS: LISINOPRIL 20 MG TAB PO SCH (08:27)
[2016-05-21] MEDS ORDERED: ENOXAPARIN 40 MG/0.4 ML SYRINGE SQ SCH (09:00)
[2016-05-21] MEDS ORDERED: IV VANCOMYCIN PER PHARMACY 1 EACH MISC MISCELLANE PRN (09:41)
[2016-05-21 11:14] LABS: Glucose,Whole Blood 225 mg/dL (75-99)
[2016-05-21] MEDS: VANCOMYCIN 1,750 MG in SODIUM CHLORIDE 0.9% 250 ML IVPB SCH (11:17)
--- NOTE | 2016-05-21 14:22 | P.PN ---
Subjective This is a 60-year-old female one of Dr. Mcghee with a previous medical history significant for hypertension and hypertensive cardiovascular disease, diabetes mellitus type 2, hyperthyroidism, melanoma, obesity, patient was diagnosed with colon cancer back in 2013 underwent partial colectomy has been under the surveillance screening with Dr. Solis when she was diagnosed with recurrence of her disease back in August 2015 after she had a computed tomographic scan that showed a liver metastatic case is ended up going for biopsy that confirmed the diagnosis of adenocarcinoma of the colon and subsequently underwent PET scan in 10/05/2015 and she had a port placed and did receive 4 cycles of chemotherapy in the form of Avastin, 5 floor uracil, and cisplatin, patient ended up seeing a load manager at [facility] Dr. Barr, was supposed to remove half of the liver but because of the advanced nature of that metastatic disease and being closer to a blood vessel it was decided to send the patient for more chemotherapy before deciding on any surgical intervention, patient unfortunately developed to have a boil in her right labia back in November 2015 where she was found to have a severe diabetic ketoacidosis after she was admitted to the hospital and she was found to have a glucose of 800 was treated for that and she was found to have an elevated d- dimer for which she underwent CT angiography that showed bilateral pulmonary emboli was started on heparin drip at that time she was admitted to the intensive care unit at our institution and she was seen by pulmonary medicine as well as by oncology and she was complaining of increased pain in the left groin and she was diagnosed with necrotizing fasciitis subsequently she was seen by general surgery Dr. Felipe ended up going for surgery however because of her status she ended up getting transferred to [facility] for further care was intubated and she stayed there for about 2 weeks and after that she went to [facility] on 12/29/2015 and left to [facility] on the [place] for physical therapy rehabilitation and she was under my care at that point up until recently when she was discharged home and she was supposed to follow-up with her doctor as an outpatient, patient apparently underwent computed tomography scan of the abdomen yesterday that was ordered by for reevaluation of her metastatic disease and developed to have generalized weakness and not able to do much she ended up coming to the ER after she contacted her oncologist she was found to have urinary tract infection with sepsis she was given 1 dose of Rocephin was admitted to hospital urine culture as well as blood culture were obtained. 05/21/2016: Patient is laying down in bed, she is feeling a lot better today, she denies any chest pain, shortness breath, she has no abdominal pain, nausea, her Fitzpatrick catheter was removed, cultures pending. Objective - Vital Signs Vital signs: Vital Signs Temp 100.8 F H 05/20/16 23:00 Pulse 82 05/20/16 23:00 Resp 20 05/20/16 23:00 BP 152/69 05/20/16 23:00 Pulse Ox 95 05/20/16 23:00 Intake & Output 05/20/16 05/21/16 05/21/16 18:59 06:59 18:59 Intake Total 100 1200 Balance 100 1200 Weight 110.677 kg Intake: IV 1200 Sodium Chloride 0.9% 1, 1200 000 ml @ 100 mls/hr IV . Q10H STA Rx#:[id number] Intake, IV Titration 100 Amount Sodium Chloride 0.9% 1, 100 000 ml @ 100 mls/hr IV . Q10H STA Rx#:[id number] Other: Voiding Method Indwelling Catheter Indwelling Catheter Indwelling Catheter - Exam - Constitutional General appearance: mild distress, obese - EENT Eyes: anicteric sclerae, EOMI, PERRLA, no ptosis, no scleral icterus, normal appearance ENT: NA/AT, normal oropharynx, no thrush Ears: bilateral: normal - Neck Neck: no lymphadenopathy, normal ROM, no rigidity, no stridor, no thyromegaly Carotids: bilateral: upstroke normal Thyroid: bilateral: normal size - Respiratory Respiratory: bilateral: diminished, negative: dullness, rales, rhonchi, wheezing , prolonged expiration, prolonged inspiration - Cardiovascular Rhythm: regular Heart sounds: normal: S1, S2 Abnormal Heart Sounds: systolic murmur - Gastrointestinal General gastrointestinal: normal bowel sounds, soft, no splenomegaly, no tenderness,. Large incisional hernia. - Integumentary Integumentary: normal, ulcer (There is one in the right groin secondary to muscle surgical intervention for necrotizing fasciitis) - Neurologic Neurologic: CNII-XII intact - Musculoskeletal Musculoskeletal: gait normal - Psychiatric Psychiatric: A&O x's 3, appropriate affect, intact judgment & insight - Gastrointestinal General gastrointestinal: Present: ventral hernia - Labs CBC & Chem 7: 05/20/16 11:05 05/20/16 11:05 Labs: Abnormal Lab Results - Last 24 Hours (Table) 05/20/16 05/20/16 05/20/16 Range/Units 13:24 17:10 19:50 POC Glucose (mg/dL) 282 H 220 H (75-99) mg/dL Urine Appearance Cloudy H (Clear) Urine Protein 1+ H (Negative) Urine Blood Small H (Negative) Urine Bilirubin 1+ H (Negative) Ur Leukocyte Esterase Large H (Negative) Urine RBC 6 H (0-5) /hpf Urine WBC >182 H (0-5) /hpf Urine WBC Clumps Many H (None) /hpf Amorphous Sediment Rare H (None) /hpf Urine Bacteria Many H (None) /hpf 05/20/16 05/21/16 Range/Units 21:23 07:19 POC Glucose (mg/dL) 225 H 163 H (75-99) mg/dL Urine Appearance (Clear) Urine Protein (Negative) Urine Blood (Negative) Urine Bilirubin (Negative) Ur Leukocyte Esterase (Negative) Urine RBC (0-5) /hpf Urine WBC (0-5) /hpf Urine WBC Clumps (None) /hpf Amorphous Sediment (None) /hpf Urine Bacteria (None) /hpf Assessment and Plan Plan: Assessment and Plan Plan: Assessment and plan: 1. UTI with sepsis. Check urine culture and blood culture, start the patient on Rocephin 1 g IV piggyback every 24 hours. Obtain ID consultation from Dr. Rodriguez. 2. Bilateral pulmonary emboli. Continue patient on Xarelto 15mg orally bid. 3. History of necrotizing fasciitis of the right groin status post multiple surgical intervention. Continue current local care with Dakin solution for the right groin. 4. Diabetes mellitus type 2. Continue Lantus 30 units at bedtime along with sliding scale insulin. BGM before each meal and at bedtime. 5. Stage IV colon cancer with liver metastasis. Hematology oncology consultation, patient did have a computed tomography scan of the abdomen yesterday the result of which still pending. 6. Hypertension and hypertensive cardiovascular disease. Continue lisinopril 20 mg orally once every day. 7. Hypothyroidism. Continue patient on Synthroid 175 g orally once every day. 8. Bilateral lower extremity edema. Continue patient on hydrochlorothiazide 25 mg orally once every day. 9. Anxiety and panic attacks. Continue patient on Xanax 0.25 milligrams orally 2 times every day as needed. 10. Diabetic polyneuropathy. Continue gabapentin 100 mg orally 3 times every day and amitriptyline 25 mg at bedtime. 11. Constipation. Continue patient on current bowel care. 12. DVT prophylaxis. Continue Xarelto 15 mg orally bid. 13. GI prophylaxis. Continue patient on PPI. 14. Generalized weakness. Physical therapy evaluation tomorrow morning. 15. Full code. 16. Prognosis is guarded.
[2016-05-21 17:10] LABS: Glucose,Whole Blood 260 mg/dL (75-99)
--- NOTE | 2016-05-21 17:33 | P.PN ---
Subjective Principal diagnosis: Sepsis with UTI Very pleasant 60 woman with the pleasure of seeing in November 2015. At the present time she presented with evidence of diabetic ketoacidosis. There however was also evidence of a significant infection into her right groin that extended to the mons pubis. It appeared that she had evidence of a necrotizing fasciitis and she was transferred to a tertiary care center for the emergent surgery that could not be performed here. The patient relates she had a very protracted hospital stay of about a month and then [facility] the [facility]. Her home is renovated so that it was capable of living her come back there and she's now been back to her home setting for the last several weeks. The patient relates about 2 weeks ago she did have her Fitzpatrick catheter replaced which is relatively well until she this sudden onset of increasing weakness and malaise. She does have a known history of the metastatic adenocarcinoma over: With liver metastasis. She's undergone extensive treatments including FOLFOX chemotherapy. She relates that today she is feeling slightly better since admission fluids and antibiotic therapy. She was having a low-grade fever home only. She is not having chills or rigors. However she's been having increasing weakness over the days before her admission. She does relate that she's had a remarkable recovery. She is very grateful to the care that she received in the past. She does not have very many urinary symptoms began has a chronic Fitzpatrick catheter in place. She is denying any significant abdominal symptoms denies nausea or emesis. She' s having no constipation or diarrhea. No hematemesis motor or hematochezia. Objective - Vital Signs Vital signs: Vital Signs Temp 98.8 F 05/21/16 15:00 Pulse 85 05/21/16 15:00 Resp 18 05/21/16 15:00 BP 133/63 05/21/16 15:00 Pulse Ox 93 L 05/21/16 15:00 Intake & Output 05/20/16 05/21/16 05/21/16 18:59 06:59 18:59 Intake Total 100 1200 850 Balance 100 1200 850 Weight 110.677 kg Intake: IV 1200 600 Sodium Chloride 0.9% 1, 1200 600 000 ml @ 100 mls/hr IV . Q10H [facility] Rx#:[id number] Intake, IV Titration 100 250 Amount Sodium Chloride 0.9% 1, 100 000 ml @ 100 mls/hr IV . Q10H [facility] Rx#:[id number] Vancomycin 1,750 mg In 250 Sodium Chloride 0.9% 250 ml @ 125 mls/hr IVPB Q[facility]H [facility] Rx#:[id number] Other: Voiding Method Indwelling Catheter Indwelling Catheter Indwelling Catheter - Exam Pleasant 60 woman who suffers from obesity, seems quite comfortable HEENT: Anicteric conjunctiva are pink and moist nasal mucosa grossly intact without significant lesions, there is no thrush. Neck: The neck is supple without significant lymphadenopathy or thyromegaly. Lungs: Symmetrical air entry is noted. There is evidence of a few basilar crackles. No bronchial sounds are heard. No dullness or egophony is noted Heart: Regular rate and rhythm with an audible S1-S2, no S3 no S4. There is no significant murmur click or rub, PMI was nondisplaced. Abdomen: Positive bowel sounds soft and nontender without palpable masses or organomegaly. There was no guarding or rebound. Extremities: The upper extremities have excellent pulses they are symmetric, no significant petechiae or telangiectasia. No splinter hemorrhages were noted. IV site is into the right shoulder area. Functioning well without tenderness. The left lower extremity has a lack of any significant open lesions. Right lower extremity is evaluated. The prior extensive surgical wound is healing. There is evidence of excellent granulation throughout entire base where she's had the extensive incision and drainage for the necrotizing fasciitis. Neuro: Awake alert oriented to person place and time. There are no acute new gross focal sensory motor deficits. - Labs CBC & Chem 7: 05/20/16 11:05 05/20/16 11:05 Labs: Abnormal Lab Results - Last 24 Hours (Table) 05/20/16 05/20/16 05/20/16 Range/Units 17:10 19:50 21:23 POC Glucose (mg/dL) 220 H 225 H (75-99) mg/dL Prealbumin (18-36) mg/dL Urine Appearance Cloudy H (Clear) Urine Protein 1+ H (Negative) Urine Blood Small H (Negative) Urine Bilirubin 1+ H (Negative) Ur Leukocyte Esterase Large H (Negative) Urine RBC 6 H (0-5) /hpf Urine WBC >182 H (0-5) /hpf Urine WBC Clumps Many H (None) /hpf Amorphous Sediment Rare H (None) /hpf Urine Bacteria Many H (None) /hpf 05/21/16 05/21/16 05/21/16 Range/Units 07:19 10:00 11:07 POC Glucose (mg/dL) 163 H 225 H (75-99) mg/dL Prealbumin 3 L (18-36) mg/dL Urine Appearance (Clear) Urine Protein (Negative) Urine Blood (Negative) Urine Bilirubin (Negative) Ur Leukocyte Esterase (Negative) Urine RBC (0-5) /hpf Urine WBC (0-5) /hpf Urine WBC Clumps (None) /hpf Amorphous Sediment (None) /hpf Urine Bacteria (None) /hpf 05/21/16 Range/Units 17:05 POC Glucose (mg/dL) 260 H (75-99) mg/dL Prealbumin (18-36) mg/dL Urine Appearance (Clear) Urine Protein (Negative) Urine Blood (Negative) Urine Bilirubin (Negative) Ur Leukocyte Esterase (Negative) Urine RBC (0-5) /hpf Urine WBC (0-5) /hpf Urine WBC Clumps (None) /hpf Amorphous Sediment (None) /hpf Urine Bacteria (None) /hpf Microbiology - Last 24 Hours (Table) 05/20/16 19:50 Urine Culture - Preliminary Urine,Catheterized Laboratory Results WBC 10.7 k/uL (3.8-10.6) H 05/20/16 11:05 RBC 4.02 m/uL (3.80-5.40) 05/20/16 11:05 Hgb 10.3 gm/dL (11.4-16.0) L 05/20/16 11:05 Hct 31.8 % (34.0-46.0) L 05/20/16 11:05 MCV 79.2 fL (80.0-100.0) L 05/20/16 11:05 MCH 25.7 pg (25.0-35.0) 05/20/16 11:05 MCHC 32.4 g/dL (31.0-37.0) 05/20/16 11:05 RDW 17.5 % (11.5-15.5) H 05/20/16 11:05 Plt Count 299 k/uL (150-450) 05/20/16 11:05 Neutrophils % 85 % 05/20/16 11:05 Lymphocytes % 7 % 05/20/16 11:05 Monocytes % 4 % 05/20/16 11:05 Eosinophils % 1 % 05/20/16 11:05 Basophils % 0 % 05/20/16 11:05 Neutrophils # 9.2 k/uL (1.3-7.7) H 05/20/16 11:05 Lymphocytes # 0.8 k/uL (1.0-4.8) L 05/20/16 11:05 Monocytes # 0.4 k/uL (0-1.0) 05/20/16 11:05 Eosinophils # 0.1 k/uL (0-0.7) 05/20/16 11:05 Basophils # 0.0 k/uL (0-0.2) 05/20/16 11:05 Anisocytosis Slight 05/20/16 11:05 Microcytosis Slight 05/20/16 11:05 PT 14.2 sec (9.0-12.0) H 05/20/16 11:05 INR 1.5 (<1.1) 05/20/16 11:05 APTT 26.0 sec (22.0-30.0) 05/20/16 11:05 Sodium 131 mmol/L (137-145) L 05/20/16 11:05 Potassium 5.0 mmol/L (3.5-5.1) 05/20/16 11:05 Chloride 92 mmol/L (98-107) L 05/20/16 11:05 Carbon Dioxide 28 mmol/L (22-30) 05/20/16 11:05 Anion Gap 11 mmol/L 05/20/16 11:05 BUN 18 mg/dL (7-17) H 05/20/16 11:05 Creatinine 0.89 mg/dL (0.52-1.04) 05/20/16 11:05 Est GFR (MDRD) Af Amer >60 (>60 ml/min/1.73 sqM) 05/20/16 11:05 Est GFR (MDRD) Non-Af >60 (>60 ml/min/1.73 sqM) 05/20/16 11:05 Glucose 289 mg/dL (74-99) H 05/20/16 11:05 POC Glucose (mg/dL) 260 mg/dL (75-99) H 05/21/16 17:05 POC Glu Outpatient Therapist ID Lori Ling 05/21/16 17:[address] Glu mg/dL 192 mg/dL 05/20/16 11:05 Hemoglobin A1c 8.3 % (4.2-6.1) H 05/20/16 11:05 Plasma Lactic Acid Sacha 1.9 mmol/L (0.7-2.0) 05/20/16 11:05 Calcium 8.5 mg/dL (8.4-10.2) 05/20/16 11:05 Phosphorus 3.9 mg/dL (2.5-4.5) 05/20/16 11:05 Magnesium 1.7 mg/dL (1.6-2.3) 05/20/16 11:05 Total Bilirubin 1.4 mg/dL (0.2-1.3) H 05/20/16 11:05 AST 87 U/L (14-36) H 05/20/16 11:05 ALT 38 U/L (9-52) 05/20/16 11:05 Alkaline Phosphatase 444 U/L (38-126) H 05/20/16 11:05 Total Creatine Kinase 128 U/L (30-135) 05/20/16 11:05 CK-MB (CK-2) <0.2 ng/mL (0.0-2.4) 05/20/16 11:05 CK-MB (CK-2) Rel Index 05/20/16 11:05 Troponin I <0.012 ng/mL (0.000-0.034) 05/20/16 11:05 Total Protein 6.8 g/dL (6.3-8.2) 05/20/16 11:05 Albumin 3.0 g/dL (3.5-5.0) L 05/20/16 11:05 Prealbumin 3 mg/dL (18-36) L 05/21/16 10:00 Urine Color Yellow 05/20/16 19:50 Urine Appearance Cloudy (Clear) H 05/20/16 19:50 Urine pH 5.5 (5.0-8.0) 05/20/16 19:50 Ur Specific [place] 1.021 (1.001-1.035) 05/20/16 19:50 Urine Protein 1+ (Negative) H 05/20/16 19:50 Urine Glucose (UA) Negative (Negative) 05/20/16 19:50 Urine Ketones Negative (Negative) 05/20/16 19:50 Urine Blood Small (Negative) H 05/20/16 19:50 Urine Nitrite Negative (Negative) 05/20/16 19:50 Urine Bilirubin 1+ (Negative) H 05/20/16 19:50 Urine Urobilinogen 6.0 mg/dL (<2.0) 05/20/16 19:50 Ur Leukocyte Esterase Large (Negative) H 05/20/16 19:50 Urine RBC 6 /hpf (0-5) H 05/20/16 19:50 Urine WBC >182 /hpf (0-5) H 05/20/16 19:50 Urine WBC Clumps Many /hpf (None) H 05/20/16 19:50 Ur Squamous Epith Cells 1 /hpf (0-4) 05/20/16 19:50 Amorphous Sediment Rare /hpf (None) H 05/20/16 19:50 Urine Bacteria Many /hpf (None) H 05/20/16 19:50 Urine Mucus Few /hpf (None) H 05/20/16 11:05 Urine Yeast (Budding) Many /hpf (None) H 05/20/16 11:05 Influenza Type A RNA Not Detected (Not Detectd) 05/20/16 11:05 Influenza Type B (PCR) Not Detected (Not Detectd) 05/20/16 11:05 Microbiology 05/20/16 11:05 Blood Blood Culture Gram Stain - Preliminary 05/20/16 11:05 Blood Blood Culture - Preliminary Coagulase Negative Staph 05/20/16 19:50 Urine,Catheterized Urine Culture - Preliminary 05/20/16 11:05 Urine,Catheterized Urine Culture - Preliminary Gram Neg Bacilli 05/20/16 11:05 Blood Blood Culture - Preliminary Assessment and Plan (1) Urinary tract infection associated with indwelling urethral catheter Narrative/Plan: 60-year-old woman presents to hospital with evidence of some weakness. Find evidence of a urinary tract infection. With this ceftriaxone was begun. There is however now a possible culture and with this was called vancomycin was started because the gram-positive cocci. Concern this could be contamination versus a staph aureus sepsis given her significant history. Follow up blood cultures have been requested to further evaluate the bacteremia. Fortunately The patient is doing relatively well this point in time. Her edema is under good control. Wound care with the calcium alginate silver product will continue to be changed every other day. Cleansing the area with saline is helpful. Her anxiety is under control this point in time. She was very grateful to see me. The patient does have a underlying history of colon cancer with liver metastasis is being followed by oncology and plans for further intervention once her current infectious process resolves. Status: Acute (2) Leukocytosis Status: Acute (3) History of necrotising fasciitis Status: Acute (4) Elevated alkaline phosphatase level Status: Acute (5) Fever Status: Acute (6) Fever Status: Acute
[2016-05-21 20:44] LABS: Glucose,Whole Blood 243 mg/dL (75-99)
[2016-05-21] MEDS: INSULIN GLARGINE 100 UNIT/ML 10 ML VIAL SQ SCH (21:43)
[2016-05-21] MEDS: AMITRIPTYLINE HCL 25 MG TAB PO SCH (21:43)
[2016-05-21] MEDS: ALPRAZolam 0.25 MG TAB PO PRN (21:44)
[2016-05-22] MEDS: VANCOMYCIN 1,750 MG in SODIUM CHLORIDE 0.9% 250 ML IVPB SCH (03:02)
[2016-05-22] MEDS: LEVOTHYROXINE 75 MCG TAB PO SCH (06:38)
[2016-05-22] MEDS: LEVOTHYROXINE 100 MCG TAB PO SCH (06:38)
[2016-05-22 07:13] LABS: Glucose,Whole Blood 128 mg/dL (75-99)
[2016-05-22 07:37] LABS: Anisocytosis Slight; Basophils % (A) 0 %; CHCM 31.2; Eosinophils # (A) 0.3 k/uL (0-0.7); Eosinophils % (A) 4 %; HCT 27.7 % (34.0-46.0); HDW 2.81; Hypochromasia Slight; Luc # (Auto) 0.23; Luc % (Auto) 3; Lymphocytes # (A) 1.1 k/uL (1.0-4.8); Lymphocytes % (A) 12 %; MCH 25.3 pg (25.0-35.0); MCHC 31.6 g/dL (31.0-37.0); MCV 80.1 fL (80.0-100.0); Mean Platelet Volume 6.7; Microcytosis Slight; Monocytes # (A) 0.5 k/uL (0-1.0); Monocytes % (A) 5 %; Neutrophils # (A) 7.2 k/uL (1.3-7.7); Neutrophils % (A) 77 %; RBC 3.46 m/uL (3.80-5.40); RDW 16.9 % (11.5-15.5); WBC 9.3 k/uL (3.8-10.6); WBC (Perox) 10.24
[2016-05-22 07:39] LABS: HGB 8.7 gm/dL (11.4-16.0)
[2016-05-22 07:45] LABS: ALT 31 U/L (9-52); AST 49 U/L (14-36); Alkaline Phosphatase 327 U/L (38-126); Anion Gap 7 mmol/L; Blood Urea Nitrogen 16 mg/dL (7-17); Carbon Dioxide 26 mmol/L (22-30); Chloride 98 mmol/L (98-107); Glucose 111 mg/dL (74-99); Non-African American GFR(MDRD) >60 (>60 ml/min/1.73 sqM); Potassium 4.1 mmol/L (3.5-5.1); Sodium 131 mmol/L (137-145); Total Bilirubin 0.9 mg/dL (0.2-1.3); Total Protein 5.9 g/dL (6.3-8.2)
[2016-05-22] MEDS: INSULIN LISPRO (humaLOG) 300 UNIT/3 ML VIAL SQ SCH ×4 (08:00→20:40)
[2016-05-22] MEDS: GABAPENTIN 100 MG CAP PO SCH ×3 (09:19→23:19)
[2016-05-22] MEDS: PANTOPRAZOLE 40 MG/10 ML VIAL IV SCH (09:20)
[2016-05-22] MEDS: RIVAROXABAN 15 MG TAB PO SCH ×2 (09:20→17:16)
[2016-05-22] MEDS: LISINOPRIL 20 MG TAB PO SCH (09:20)
[2016-05-22] MEDS: HYDROCHLOROTHIAZIDE 25 MG TAB PO SCH (09:21)
[2016-05-22] MEDS: ERTAPENEM 1 GM in SODIUM CHLORIDE 0.9% 50 ML IVPB SCH (10:55)
[2016-05-22 11:56] LABS: Glucose,Whole Blood 178 mg/dL (75-99)
[2016-05-22] MEDS ORDERED: VANCOMYCIN 1,750 MG in SODIUM CHLORIDE 0.9% 250 ML IVPB SCH (13:00)
--- NOTE | 2016-05-22 14:47 | P.PN ---
Subjective This is a 60-year-old female one of Dr. Mcghee with a previous medical history significant for hypertension and hypertensive cardiovascular disease, diabetes mellitus type 2, hyperthyroidism, melanoma, obesity, patient was diagnosed with colon cancer back in 2013 underwent partial colectomy has been under the surveillance screening with Dr. Solis when she was diagnosed with recurrence of her disease back in August 2015 after she had a computed tomographic scan that showed a liver metastatic case is ended up going for biopsy that confirmed the diagnosis of adenocarcinoma of the colon and subsequently underwent PET scan in 10/05/2015 and she had a port placed and did receive 4 cycles of chemotherapy in the form of Avastin, 5 floor uracil, and cisplatin, patient ended up seeing a road maker at [facility] Dr. Barr, was supposed to remove half of the liver but because of the advanced nature of that metastatic disease and being closer to a blood vessel it was decided to send the patient for more chemotherapy before deciding on any surgical intervention, patient unfortunately developed to have a boil in her right labia back in November 2015 where she was found to have a severe diabetic ketoacidosis after she was admitted to the hospital and she was found to have a glucose of 800 was treated for that and she was found to have an elevated d- dimer for which she underwent CT angiography that showed bilateral pulmonary emboli was started on heparin drip at that time she was admitted to the intensive care unit at our institution and she was seen by pulmonary medicine as well as by oncology and she was complaining of increased pain in the left groin and she was diagnosed with necrotizing fasciitis subsequently she was seen by general surgery Dr. Felipe ended up going for surgery however because of her status she ended up getting transferred to [facility] for further care was intubated and she stayed there for about 2 weeks and after that she went to [facility] on 12/29/2015 and left to [facility] on the [place] for physical therapy rehabilitation and she was under my care at that point up until recently when she was discharged home and she was supposed to follow-up with her doctor as an outpatient, patient apparently underwent computed tomography scan of the abdomen yesterday that was ordered by for reevaluation of her metastatic disease and developed to have generalized weakness and not able to do much she ended up coming to the ER after she contacted her oncologist she was found to have urinary tract infection with sepsis she was given 1 dose of Rocephin was admitted to hospital urine culture as well as blood culture were obtained. 05/21/2016: Patient is laying down in bed, she is feeling a lot better today, she denies any chest pain, shortness breath, she has no abdominal pain, nausea, her Fitzpatrick catheter was removed, cultures pending. 05/22: patient was quite tearful during evaluation with regards to urinary tract infection but then she further discussed that her cancer has spread and she is unable to take treatment due to the groin wound. Urine culture is positive for ESBL E. coli. Antibiotics of Rocephin changed to ertapenem. Patient is continued on vancomycin. Objective - Vital Signs Vital signs: Vital Signs Temp 98.3 F 05/22/16 07:00 Pulse 77 05/22/16 07:00 Resp 16 05/22/16 07:00 BP 131/61 05/22/16 07:00 Pulse Ox 97 05/22/16 07:00 Intake & Output 05/21/16 05/22/16 05/22/16 18:59 06:59 18:59 Intake Total 850 1090 100 Output Total 575 1000 Balance 275 90 100 Intake: IV 600 Sodium Chloride 0.9% 1, 600 000 ml @ 100 mls/hr IV . Q10H [facility] Rx#:[id number] Intake, IV Titration 250 250 100 Amount Ertapenem 1 gm In Sodium 50 Chloride 0.9% 50 ml @ 100 mls/hr IVPB DAILY [facility] Rx #:[id number] Vancomycin 1,750 mg In 250 250 Sodium Chloride 0.9% 250 ml @ 125 mls/hr IVPB Q16H [facility] Rx#:[id number] cefTRIAXone 1,000 mg In 50 Sodium Chloride 0.9% 50 ml @ 100 mls/hr IVPB DAILY [facility] Rx#:[id number] Oral 840 Output: Urine 575 1000 Uretheral (Fitzpatrick) 1000 Other: Voiding Method Indwelling Catheter Indwelling Catheter Indwelling Catheter - Exam General appearance: mild distress, obese - EENT Eyes: anicteric sclerae, EOMI, PERRLA, no ptosis, no scleral icterus, normal appearance ENT: NA/AT, normal oropharynx, no thrush Ears: bilateral: normal - Neck Neck: no lymphadenopathy, normal ROM, no rigidity, no stridor, no thyromegaly Carotids: bilateral: upstroke normal Thyroid: bilateral: normal size - Respiratory Respiratory: bilateral: diminished, negative: dullness, rales, rhonchi, wheezing , prolonged expiration, prolonged inspiration - Cardiovascular Rhythm: regular Heart sounds: normal: S1, S2 Abnormal Heart Sounds: systolic murmur - Gastrointestinal General gastrointestinal: normal bowel sounds, soft, no splenomegaly, no tenderness,. Large incisional hernia. - Integumentary Integumentary: normal, ulcer (There is one in the right groin secondary to muscle surgical intervention for necrotizing fasciitis) - Neurologic Neurologic: CNII-XII intact - Musculoskeletal Musculoskeletal: gait normal - Psychiatric Psychiatric: A&O x's 3, appropriate affect, intact judgment & insight - Gastrointestinal General gastrointestinal: Present: ventral hernia - Labs CBC & Chem 7: 05/22/16 07:10 05/22/16 07:10 Labs: Abnormal Lab Results - Last 24 Hours (Table) 05/21/16 05/21/16 05/22/16 Range/Units 17:05 20:42 06:59 RBC (3.80-5.40) m/uL Hgb (11.4-16.0) gm/dL Hct (34.0-46.0) % RDW (11.5-15.5) % Sodium (137-145) mmol/L Glucose (74-99) mg/dL POC Glucose (mg/dL) 260 H 243 H 128 H (75-99) mg/dL Calcium (8.4-10.2) mg/dL AST (14-36) U/L Alkaline Phosphatase (38-126) U/L Total Protein (6.3-8.2) g/dL Albumin (3.5-5.0) g/dL 05/22/16 05/22/16 05/22/16 Range/Units 07:10 07:10 11:16 RBC 3.46 L (3.80-5.40) m/uL Hgb 8.7 L D (11.4-16.0) gm/dL Hct 27.7 L (34.0-46.0) % RDW 16.9 H (11.5-15.5) % Sodium 131 L (137-145) mmol/L Glucose 111 H (74-99) mg/dL POC Glucose (mg/dL) 178 H (75-99) mg/dL Calcium 8.0 L (8.4-10.2) mg/dL AST 49 H (14-36) U/L Alkaline Phosphatase 327 H (38-126) U/L Total Protein 5.9 L (6.3-8.2) g/dL Albumin 2.4 L (3.5-5.0) g/dL Microbiology - Last 24 Hours (Table) 05/20/16 19:50 Urine Culture - Preliminary Urine,Catheterized Gram Neg Bacilli 05/21/16 10:00 Blood Culture - Preliminary Blood No Growth after 24 hours 05/21/16 09:48 Blood Culture - Preliminary Blood No Growth after 24 hours Assessment and Plan Plan: 1. ESBL E. coli UTI with sepsis. Check urine culture and blood culture, ertapenem. Consult with Dr. Rodriguez. 2. Bilateral pulmonary emboli. Continue patient on Xarelto 15mg orally bid. 3. History of necrotizing fasciitis of the right groin status post multiple surgical intervention. Continue current local care with Dakin solution for the right groin. 4. Diabetes mellitus type 2. Continue Lantus 30 units at bedtime along with sliding scale insulin. BGM before each meal and at bedtime. 5. Stage IV colon cancer with liver metastasis. Hematology oncology consultation, patient did have a computed tomography scan of the abdomen yesterday the result of which still pending. 6. Hypertension and hypertensive cardiovascular disease. Continue lisinopril 20 mg orally once every day. 7. Hypothyroidism. Continue patient on Synthroid 175 g orally once every day. 8. Bilateral lower extremity edema. Continue patient on hydrochlorothiazide 25 mg orally once every day. 9. Anxiety and panic attacks. Continue patient on Xanax 0.25 milligrams orally 2 times every day as needed. 10. Diabetic polyneuropathy. Continue gabapentin 100 mg orally 3 times every day and amitriptyline 25 mg at bedtime. 11. Constipation. Continue patient on current bowel care. 12. DVT prophylaxis. Continue Xarelto 15 mg orally bid. 13. GI prophylaxis. Continue patient on PPI. 14. Generalized weakness. Physical therapy evaluation tomorrow morning. 15. Full code. 16. Prognosis is guarded. Impression and plan of care have been directed as dictated by the signing physician. Arminda Gimenez nurse practitioner acting as scribe for signing physician. Time with Patient: Greater than 30
--- NOTE | 2016-05-22 16:26 | P.PN ---
Subjective Principal diagnosis: UTI, sepsis Pt seen today in follow up, she states that with the noble inserted she is no longer draining urine out of her wound. She states she is feeling much better then when she came in. No fever, nausea, vomiting, she is eating fairly well, no diarrhea or constipation, she was participating in rehab with a walker and doing very well prior to admission, no reports of uncontrolled pain. Objective - Vital Signs Vital signs: Vital Signs Temp 97.7 F 05/22/16 14:52 Pulse 71 05/22/16 14:52 Resp 16 05/22/16 14:52 BP 128/60 05/22/16 14:52 Pulse Ox 96 05/22/16 14:52 Intake & Output 05/21/16 05/22/16 05/22/16 18:59 06:59 18:59 Intake Total 850 1090 100 Output Total 575 1000 Balance 275 90 100 Intake: IV 600 Sodium Chloride 0.9% 1, 600 000 ml @ 100 mls/hr IV . Q10H [facility] Rx#:[id number] Intake, IV Titration 250 250 100 Amount Ertapenem 1 gm In Sodium 50 Chloride 0.9% 50 ml @ 100 mls/hr IVPB DAILY [facility] Rx #:[id number] Vancomycin 1,750 mg In 250 250 Sodium Chloride 0.9% 250 ml @ 125 mls/hr IVPB Q16H [facility] Rx#:[id number] cefTRIAXone 1,000 mg In 50 Sodium Chloride 0.9% 50 ml @ 100 mls/hr IVPB DAILY [facility] Rx#:[id number] Oral 840 Output: Urine 575 1000 Uretheral (Noble) 1000 Other: Voiding Method Indwelling Catheter Indwelling Catheter Indwelling Catheter - Constitutional General appearance: Present: cooperative, morbidly obese, no acute distress - EENT Eyes: Present: anicteric sclerae, normal appearance - Respiratory Respiratory: bilateral: CTA - Cardiovascular Heart sounds: normal: S1, S2 - Peripheral edema leg Peripheral Edema: bilateral: 1+ - Gastrointestinal General gastrointestinal: Present: normal bowel sounds, soft. Absent: absent bowel sounds, decreased bowel sounds, distended, hepatomegaly, hyperactive bowel sounds, organomegaly, rigid, scaphoid, splenomegaly, tenderness, umbilical hernia, ventral hernia - Genitourinary Genitourinary Comment(s): right inguinal surgical incision healing, no redness, heat, no out of proportion pain or subcutaneous emphysema palpated - Integumentary Integumentary: Present: pale - Neurologic Neurologic: Present: CNII-XII intact - Musculoskeletal Musculoskeletal: Present: generalized weakness, strength equal bilaterally - Psychiatric Psychiatric: Present: A&O x's 3, appropriate affect, intact judgment & insight - Labs CBC & Chem 7: 05/22/16 07:10 05/22/16 07:10 Labs: Abnormal Lab Results - Last 24 Hours (Table) 05/21/16 05/21/16 05/22/16 Range/Units 17:05 20:42 06:59 RBC (3.80-5.40) m/uL Hgb (11.4-16.0) gm/dL Hct (34.0-46.0) % RDW (11.5-15.5) % Sodium (137-145) mmol/L Glucose (74-99) mg/dL POC Glucose (mg/dL) 260 H 243 H 128 H (75-99) mg/dL Calcium (8.4-10.2) mg/dL AST (14-36) U/L Alkaline Phosphatase (38-126) U/L Total Protein (6.3-8.2) g/dL Albumin (3.5-5.0) g/dL 05/22/16 05/22/16 05/22/16 Range/Units 07:10 07:10 11:16 RBC 3.46 L (3.80-5.40) m/uL Hgb 8.7 L D (11.4-16.0) gm/dL Hct 27.7 L (34.0-46.0) % RDW 16.9 H (11.5-15.5) % Sodium 131 L (137-145) mmol/L Glucose 111 H (74-99) mg/dL POC Glucose (mg/dL) 178 H (75-99) mg/dL Calcium 8.0 L (8.4-10.2) mg/dL AST 49 H (14-36) U/L Alkaline Phosphatase 327 H (38-126) U/L Total Protein 5.9 L (6.3-8.2) g/dL Albumin 2.4 L (3.5-5.0) g/dL Microbiology - Last 24 Hours (Table) 05/20/16 19:50 Urine Culture - Preliminary Urine,Catheterized Gram Neg Bacilli 05/21/16 10:00 Blood Culture - Preliminary Blood No Growth after 24 hours 05/21/16 09:48 Blood Culture - Preliminary Blood No Growth after 24 hours Assessment and Plan (1) Sepsis secondary to UTI Narrative/Plan: Positive urine and blood cultures on admit. Pt has been treated with abx and being seen by ID. Status: Acute (2) Adenocarcinoma of colon metastatic to liver Narrative/Plan: Pt has had her imaging, she will follow up with Dr. Elliott for results and plan for treatment Status: Chronic (3) Pulmonary embolism Narrative/Plan: Pt was switched from coumadin to xarelto on 05/12/16, she will take 15mg PO BID x 21 days then change dose to 20mg PO QD with dinner. Renal function reviewed. Status: Acute
[2016-05-22 17:20] LABS: Glucose,Whole Blood 111 mg/dL (75-99)
[2016-05-22] MEDS ORDERED: RIVAROXABAN 10 MG TAB PO SCH (17:30)
--- NOTE | 2016-05-22 19:52 | P.PN ---
Subjective Principal diagnosis: Sepsis with UTI Very pleasant 60 woman with the pleasure of seeing in November 2015. At the present time she presented with evidence of diabetic ketoacidosis. There however was also evidence of a significant infection into her right groin that extended to the mons pubis. It appeared that she had evidence of a necrotizing fasciitis and she was transferred to a tertiary care center for the emergent surgery that could not be performed here. The patient relates she had a very protracted hospital stay of about a month and then spent the following months at [facility]. Her home is renovated so that it was capable of living her come back there and she's now been back to her home setting for the last several weeks. The patient relates about 2 weeks ago she did have her Fitzpatrick catheter replaced which is relatively well until she this sudden onset of increasing weakness and malaise. She does have a known history of the metastatic adenocarcinoma over: With liver metastasis. She's undergone extensive treatments including FOLFOX chemotherapy. She relates that today she is feeling slightly better since admission fluids and antibiotic therapy. She was having a low-grade fever home only. She is not having chills or rigors. However she's been having increasing weakness over the days before her admission. She does relate that she's had a remarkable recovery. She is very grateful to the care that she received in the past. She does not have very many urinary symptoms began has a chronic Fitzpatrick catheter in place. She is denying any significant abdominal symptoms denies nausea or emesis. She' s having no constipation or diarrhea. No hematemesis motor or hematochezia. Objective - Vital Signs Vital signs: Vital Signs Temp 97.7 F 05/22/16 14:52 Pulse 71 05/22/16 14:52 Resp 16 05/22/16 14:52 BP 128/60 05/22/16 14:52 Pulse Ox 96 05/22/16 14:52 Intake & Output 05/22/16 05/22/16 05/23/16 06:59 18:59 06:59 Intake Total 1090 100 Output Total 1000 Balance 90 100 Intake: Intake, IV Titration 250 100 Amount Ertapenem 1 gm In Sodium 50 Chloride 0.9% 50 ml @ 100 mls/hr IVPB DAILY [facility] Rx #:[id number] Vancomycin 1,750 mg In 250 Sodium Chloride 0.9% 250 ml @ 125 mls/hr IVPB Q16H [facility] Rx#:[id number] cefTRIAXone 1,000 mg In 50 Sodium Chloride 0.9% 50 ml @ 100 mls/hr IVPB DAILY [facility] Rx#:[id number] Oral 840 Output: Urine 1000 Uretheral (Fitzpatrick) 1000 Other: Voiding Method Indwelling Catheter Indwelling Catheter - Exam Pleasant 60 woman who suffers from obesity, seems quite comfortable HEENT: Anicteric conjunctiva are pink and moist nasal mucosa grossly intact without significant lesions, there is no thrush. Neck: The neck is supple without significant lymphadenopathy or thyromegaly. Lungs: Symmetrical air entry is noted. There is evidence of a few basilar crackles. No bronchial sounds are heard. No dullness or egophony is noted Heart: Regular rate and rhythm with an audible S1-S2, no S3 no S4. There is no significant murmur click or rub, PMI was nondisplaced. Abdomen: Positive bowel sounds soft and nontender without palpable masses or organomegaly. There was no guarding or rebound. Extremities: The upper extremities have excellent pulses they are symmetric, no significant petechiae or telangiectasia. No splinter hemorrhages were noted. IV site is into the right shoulder area. Functioning well without tenderness. The left lower extremity has a lack of any significant open lesions. Right lower extremity is evaluated. The prior extensive surgical wound is healing. There is evidence of excellent granulation throughout entire base where she's had the extensive incision and drainage for the necrotizing fasciitis. Neuro: Awake alert oriented to person place and time. There are no acute new gross focal sensory motor deficits. - Labs CBC & Chem 7: 05/22/16 07:10 05/22/16 07:10 Labs: Abnormal Lab Results - Last 24 Hours (Table) 05/21/16 05/22/16 05/22/16 Range/Units 20:42 06:59 07:10 RBC 3.46 L (3.80-5.40) m/uL Hgb 8.7 L D (11.4-16.0) gm/dL Hct 27.7 L (34.0-46.0) % RDW 16.9 H (11.5-15.5) % Sodium (137-145) mmol/L Glucose (74-99) mg/dL POC Glucose (mg/dL) 243 H 128 H (75-99) mg/dL Calcium (8.4-10.2) mg/dL AST (14-36) U/L Alkaline Phosphatase (38-126) U/L Total Protein (6.3-8.2) g/dL Albumin (3.5-5.0) g/dL 05/22/16 05/22/16 05/22/16 Range/Units 07:10 11:16 17:08 RBC (3.80-5.40) m/uL Hgb (11.4-16.0) gm/dL Hct (34.0-46.0) % RDW (11.5-15.5) % Sodium 131 L (137-145) mmol/L Glucose 111 H (74-99) mg/dL POC Glucose (mg/dL) 178 H 111 H (75-99) mg/dL Calcium 8.0 L (8.4-10.2) mg/dL AST 49 H (14-36) U/L Alkaline Phosphatase 327 H (38-126) U/L Total Protein 5.9 L (6.3-8.2) g/dL Albumin 2.4 L (3.5-5.0) g/dL Microbiology - Last 24 Hours (Table) 05/20/16 19:50 Urine Culture - Preliminary Urine,Catheterized Gram Neg Bacilli 05/21/16 10:00 Blood Culture - Preliminary Blood No Growth after 24 hours 05/21/16 09:48 Blood Culture - Preliminary Blood No Growth after 24 hours Laboratory Results WBC 9.3 k/uL (3.8-10.6) 05/22/16 07:10 RBC 3.46 m/uL (3.80-5.40) L 05/22/16 07:10 Hgb 8.7 gm/dL (11.4-16.0) L D 05/22/16 07:10 Hct 27.7 % (34.0-46.0) L 05/22/16 07:10 MCV 80.1 fL (80.0-100.0) 05/22/16 07:10 MCH 25.3 pg (25.0-35.0) 05/22/16 07:10 MCHC 31.6 g/dL (31.0-37.0) 05/22/16 07:10 RDW 16.9 % (11.5-15.5) H 05/22/16 07:10 Plt Count 287 k/uL (150-450) 05/22/16 07:10 Neutrophils % 77 % 05/22/16 07:10 Lymphocytes % 12 % 05/22/16 07:10 Monocytes % 5 % 05/22/16 07:10 Eosinophils % 4 % 05/22/16 07:10 Basophils % 0 % 05/22/16 07:10 Neutrophils # 7.2 k/uL (1.3-7.7) 05/22/16 07:10 Lymphocytes # 1.1 k/uL (1.0-4.8) 05/22/16 07:10 Monocytes # 0.5 k/uL (0-1.0) 05/22/16 07:10 Eosinophils # 0.3 k/uL (0-0.7) 05/22/16 07:10 Basophils # 0.0 k/uL (0-0.2) 05/22/16 07:10 Hypochromasia Slight 05/22/16 07:10 Anisocytosis Slight 05/22/16 07:10 Microcytosis Slight 05/22/16 07:10 PT 14.2 sec (9.0-12.0) H 05/20/16 11:05 INR 1.5 (<1.1) 05/20/16 11:05 APTT 26.0 sec (22.0-30.0) 05/20/16 11:05 Sodium 131 mmol/L (137-145) L 05/22/16 07:10 Potassium 4.1 mmol/L (3.5-5.1) 05/22/16 07:10 Chloride 98 mmol/L (98-107) 05/22/16 07:10 Carbon Dioxide 26 mmol/L (22-30) 05/22/16 07:10 Anion Gap 7 mmol/L 05/22/16 07:10 BUN 16 mg/dL (7-17) 05/22/16 07:10 Creatinine 0.76 mg/dL (0.52-1.04) 05/22/16 07:10 Est GFR (MDRD) Af Amer >60 (>60 ml/min/1.73 sqM) 05/22/16 07:10 Est GFR (MDRD) Non-Af >60 (>60 ml/min/1.73 sqM) 05/22/16 07:10 Glucose 111 mg/dL (74-99) H 05/22/16 07:10 POC Glucose (mg/dL) 111 mg/dL (75-99) H 05/22/16 17:08 POC Glu Rigging Up Man ID Adelaida Parra 05/22/16 17:[address] Glu mg/dL 192 mg/dL 05/20/16 11:05 Hemoglobin A1c 8.3 % (4.2-6.1) H 05/20/16 11:05 Plasma Lactic Acid Sacha 1.9 mmol/L (0.7-2.0) 05/20/16 11:05 Calcium 8.0 mg/dL (8.4-10.2) L 05/22/16 07:10 Phosphorus 3.9 mg/dL (2.5-4.5) 05/20/16 11:05 Magnesium 1.7 mg/dL (1.6-2.3) 05/20/16 11:05 Total Bilirubin 0.9 mg/dL (0.2-1.3) 05/22/16 07:10 AST 49 U/L (14-36) H 05/22/16 07:10 ALT 31 U/L (9-52) 05/22/16 07:10 Alkaline Phosphatase 327 U/L (38-126) H 05/22/16 07:10 Total Creatine Kinase 128 U/L (30-135) 05/20/16 11:05 CK-MB (CK-2) <0.2 ng/mL (0.0-2.4) 05/20/16 11:05 CK-MB (CK-2) Rel Index 05/20/16 11:05 Troponin I <0.012 ng/mL (0.000-0.034) 05/20/16 11:05 Total Protein 5.9 g/dL (6.3-8.2) L 05/22/16 07:10 Albumin 2.4 g/dL (3.5-5.0) L 05/22/16 07:10 Prealbumin 3 mg/dL (18-36) L 05/21/16 10:00 Urine Color Yellow 05/20/16 19:50 Urine Appearance Cloudy (Clear) H 05/20/16 19:50 Urine pH 5.5 (5.0-8.0) 05/20/16 19:50 Ur Specific [place] 1.021 (1.001-1.035) 05/20/16 19:50 Urine Protein 1+ (Negative) H 05/20/16 19:50 Urine Glucose (UA) Negative (Negative) 05/20/16 19:50 Urine Ketones Negative (Negative) 05/20/16 19:50 Urine Blood Small (Negative) H 05/20/16 19:50 Urine Nitrite Negative (Negative) 05/20/16 19:50 Urine Bilirubin 1+ (Negative) H 05/20/16 19:50 Urine Urobilinogen 6.0 mg/dL (<2.0) 05/20/16 19:50 Ur Leukocyte Esterase Large (Negative) H 05/20/16 19:50 Urine RBC 6 /hpf (0-5) H 05/20/16 19:50 Urine WBC >182 /hpf (0-5) H 05/20/16 19:50 Urine WBC Clumps Many /hpf (None) H 05/20/16 19:50 Ur Squamous Epith Cells 1 /hpf (0-4) 05/20/16 19:50 Amorphous Sediment Rare /hpf (None) H 05/20/16 19:50 Urine Bacteria Many /hpf (None) H 05/20/16 19:50 Urine Mucus Few /hpf (None) H 05/20/16 11:05 Urine Yeast (Budding) Many /hpf (None) H 05/20/16 11:05 Influenza Type A RNA Not Detected (Not Detectd) 05/20/16 11:05 Influenza Type B (PCR) Not Detected (Not Detectd) 05/20/16 11:05 Microbiology 05/20/16 19:50 Urine,Catheterized Urine Culture - Preliminary Gram Neg Bacilli 05/20/16 11:05 Urine,Catheterized Urine Culture - Final Escherichia coli 05/21/16 10:00 Blood Blood Culture - Preliminary No Growth after 24 hours 05/21/16 09:48 Blood Blood Culture - Preliminary No Growth after 24 hours 05/20/16 11:05 Blood Blood Culture Gram Stain - Final 05/20/16 11:05 Blood Blood Culture - Final Staphylococcus epidermidis 05/20/16 11:05 Blood Blood Culture - Final Assessment and Plan (1) Urinary tract infection associated with indwelling urethral catheter Narrative/Plan: 60-year-old woman presents to hospital with evidence of some weakness. Find evidence of a urinary tract infection. With this ceftriaxone was begun. Laboratory has reported the urine cultures Escherichia coli that is ESBL. Rocephin is changed to ertapenem. We'll plan 10 days at discharge. There is however now a positive blood culture and when this was called vancomycin was started because the gram-positive cocci. Concern this could be contamination versus a staph aureus sepsis given her significant history. Follow up blood cultures have been requested to further evaluate the bacteremia. Fortunately The patient is doing relatively well this point in time. Her edema is under good control. Wound care with the calcium alginate silver product will continue to be changed every other day. Cleansing the area with saline is helpful. Her anxiety is under control this point in time. She was very grateful to see me. The patient does have a underlying history of colon cancer with liver metastasis is being followed by oncology and plans for further intervention once her current infectious process resolves. We'll arrange for the completion course of ertapenem at home. Prescription is left. Vancomycin therapy is discontinued for the blood cultures as staph epidermidis which is not correlating with her urine culture. Status: Acute (2) Leukocytosis Status: Acute (3) History of necrotising fasciitis Status: Acute (4) Elevated alkaline phosphatase level Status: Acute (5) Fever Status: Acute (6) Fever Status: Acute
[2016-05-22 20:40] LABS: Glucose,Whole Blood 160 mg/dL (75-99)
[2016-05-22] MEDS: AMITRIPTYLINE HCL 25 MG TAB PO SCH (20:40)
[2016-05-22] MEDS: INSULIN GLARGINE 100 UNIT/ML 10 ML VIAL SQ SCH (20:40)
[2016-05-22] MEDS: ALPRAZolam 0.25 MG TAB PO PRN (23:19)
[2016-05-23] MEDS: LEVOTHYROXINE 100 MCG TAB PO SCH (06:15)
[2016-05-23] MEDS: LEVOTHYROXINE 75 MCG TAB PO SCH (06:16)
[2016-05-23 06:38] LABS: Anisocytosis Slight; CH 25.6; CHCM 32.1; HCT 28.3 % (34.0-46.0); HDW 2.82; HGB 9.1 gm/dL (11.4-16.0); Hypochromasia Slight; MCH 25.7 pg (25.0-35.0); MCHC 32.2 g/dL (31.0-37.0); MCV 79.8 fL (80.0-100.0); Mean Platelet Volume 7.3; Microcytosis Slight; RBC 3.54 m/uL (3.80-5.40); RDW 17.2 % (11.5-15.5)
[2016-05-23 07:04] LABS: ALT 33 U/L (9-52); AST 53 U/L (14-36); Alkaline Phosphatase 369 U/L (38-126); Anion Gap 9 mmol/L; Blood Urea Nitrogen 15 mg/dL (7-17); Calcium 8.3 mg/dL (8.4-10.2); Carbon Dioxide 26 mmol/L (22-30); Chloride 96 mmol/L (98-107); Glucose 101 mg/dL (74-99); Non-African American GFR(MDRD) >60 (>60 ml/min/1.73 sqM); Sodium 131 mmol/L (137-145); Total Bilirubin 0.7 mg/dL (0.2-1.3); Total Protein 5.8 g/dL (6.3-8.2)
[2016-05-23 07:21] LABS: Glucose,Whole Blood 111 mg/dL (75-99)
[2016-05-23] MEDS: INSULIN LISPRO (humaLOG) 300 UNIT/3 ML VIAL SQ SCH ×4 (07:34→20:49)
[2016-05-23] MEDS: LISINOPRIL 20 MG TAB PO SCH (07:46)
[2016-05-23] MEDS: HYDROCHLOROTHIAZIDE 25 MG TAB PO SCH (07:46)
[2016-05-23] MEDS: RIVAROXABAN 15 MG TAB PO SCH ×2 (07:46→17:24)
[2016-05-23] MEDS: GABAPENTIN 100 MG CAP PO SCH ×3 (07:46→23:46)
[2016-05-23] MEDS: PANTOPRAZOLE 40 MG TABLET PO SCH (07:46)
[2016-05-23] MEDS: ERTAPENEM 1 GM in SODIUM CHLORIDE 0.9% 50 ML IVPB SCH (07:46)
[2016-05-23 11:09] LABS: Glucose,Whole Blood 181 mg/dL (75-99)
[2016-05-23] MEDS ORDERED: VANCOMYCIN TROUGH DUE 1 EACH MISC MISCELLANE ONE (12:00)
--- NOTE | 2016-05-23 14:06 | P.PN ---
Subjective This is a 60-year-old female one of Dr. Mcghee with a previous medical history significant for hypertension and hypertensive cardiovascular disease, diabetes mellitus type 2, hyperthyroidism, melanoma, obesity, patient was diagnosed with colon cancer back in 2013 underwent partial colectomy has been under the surveillance screening with Dr. Solis when she was diagnosed with recurrence of her disease back in August 2015 after she had a computed tomographic scan that showed a liver metastatic case is ended up going for biopsy that confirmed the diagnosis of adenocarcinoma of the colon and subsequently underwent PET scan in 10/05/2015 and she had a port placed and did receive 4 cycles of chemotherapy in the form of Avastin, 5 floor uracil, and cisplatin, patient ended up seeing a core man at [facility] Dr. Barr, was supposed to remove half of the liver but because of the advanced nature of that metastatic disease and being closer to a blood vessel it was decided to send the patient for more chemotherapy before deciding on any surgical intervention, patient unfortunately developed to have a boil in her right labia back in November 2015 where she was found to have a severe diabetic ketoacidosis after she was admitted to the hospital and she was found to have a glucose of 800 was treated for that and she was found to have an elevated d- dimer for which she underwent CT angiography that showed bilateral pulmonary emboli was started on heparin drip at that time she was admitted to the intensive care unit at our institution and she was seen by pulmonary medicine as well as by oncology and she was complaining of increased pain in the left groin and she was diagnosed with necrotizing fasciitis subsequently she was seen by general surgery Dr. Felipe ended up going for surgery however because of her status she ended up getting transferred to [facility] for further care was intubated and she stayed there for about 2 weeks and after that she went to [facility] on 12/29/2015 and left to [facility] on the [address] for physical therapy rehabilitation and she was under my care at that point up until recently when she was discharged home and she was supposed to follow-up with her doctor as an outpatient, patient apparently underwent computed tomography scan of the abdomen yesterday that was ordered by for reevaluation of her metastatic disease and developed to have generalized weakness and not able to do much she ended up coming to the ER after she contacted her oncologist she was found to have urinary tract infection with sepsis she was given 1 dose of Rocephin was admitted to hospital urine culture as well as blood culture were obtained. 05/21/2016: Patient is laying down in bed, she is feeling a lot better today, she denies any chest pain, shortness breath, she has no abdominal pain, nausea, her Fitzpatrick catheter was removed, cultures pending. 05/22: patient was quite tearful during evaluation with regards to urinary tract infection but then she further discussed that her cancer has spread and she is unable to take treatment due to the groin wound. Urine culture is positive for ESBL E. coli. Antibiotics of Rocephin changed to ertapenem. 05/23: Patient is feeling quite a bit better today. Plan to increase activity and possible discharge in the next 24-[address] Rodriguez has recommended ertapenem for home. Patient does have a port in the right upper anterior chest that is functioning well. She will be discharged with Fitzpatrick catheter in place. Objective - Vital Signs Vital signs: Vital Signs Temp 97.1 F L 05/23/16 07:00 Pulse 68 05/23/16 07:00 Resp 16 05/23/16 07:00 BP 114/58 05/23/16 07:00 Pulse Ox 97 05/23/16 07:00 Intake & Output 05/22/16 05/23/16 05/23/16 18:59 06:59 18:59 Intake Total 100 480 Output Total 1600 575 Balance 100 -1120 -575 Weight 110.677 kg Intake: Intake, IV Titration 100 Amount Ertapenem 1 gm In Sodium 50 Chloride 0.9% 50 ml @ 100 mls/hr IVPB DAILY [facility] Rx #:[id number] cefTRIAXone 1,000 mg In 50 Sodium Chloride 0.9% 50 ml @ 100 mls/hr IVPB DAILY [facility] Rx#:[id number] Oral 480 Output: Urine 1600 575 Uretheral (Fitzpatrick) 1600 Other: Voiding Method Indwelling Catheter Indwelling Catheter Indwelling Catheter - Exam General appearance: mild distress, obese - EENT Eyes: anicteric sclerae, EOMI, PERRLA, no ptosis, no scleral icterus, normal appearance ENT: NA/AT, normal oropharynx, no thrush Ears: bilateral: normal - Neck Neck: no lymphadenopathy, normal ROM, no rigidity, no stridor, no thyromegaly Carotids: bilateral: upstroke normal Thyroid: bilateral: normal size - Respiratory Respiratory: bilateral: diminished, negative: dullness, rales, rhonchi, wheezing , prolonged expiration, prolonged inspiration - Cardiovascular Rhythm: regular Heart sounds: normal: S1, S2 Abnormal Heart Sounds: systolic murmur - Gastrointestinal General gastrointestinal: normal bowel sounds, soft, no splenomegaly, no tenderness,. Large incisional hernia. - Integumentary Integumentary: normal, ulcer (There is one in the right groin secondary to muscle surgical intervention for necrotizing fasciitis) - Neurologic Neurologic: CNII-XII intact - Musculoskeletal Musculoskeletal: gait normal - Psychiatric Psychiatric: A&O x's 3, appropriate affect, intact judgment & insight - Gastrointestinal General gastrointestinal: Present: ventral hernia - Labs CBC & Chem 7: 05/23/16 06:20 05/23/16 06:20 Labs: Abnormal Lab Results - Last 24 Hours (Table) 05/22/16 05/22/16 05/23/16 Range/Units 17:08 20:39 06:20 RBC 3.54 L (3.80-5.40) m/uL Hgb 9.1 L (11.4-16.0) gm/dL Hct 28.3 L (34.0-46.0) % MCV 79.8 L (80.0-100.0) fL RDW 17.2 H (11.5-15.5) % Sodium (137-145) mmol/L Chloride (98-107) mmol/L Glucose (74-99) mg/dL POC Glucose (mg/dL) 111 H 160 H (75-99) mg/dL Calcium (8.4-10.2) mg/dL AST (14-36) U/L Alkaline Phosphatase (38-126) U/L Total Protein (6.3-8.2) g/dL Albumin (3.5-5.0) g/dL 05/23/16 05/23/16 05/23/16 Range/Units 06:20 07:13 11:07 RBC (3.80-5.40) m/uL Hgb (11.4-16.0) gm/dL Hct (34.0-46.0) % MCV (80.0-100.0) fL RDW (11.5-15.5) % Sodium 131 L (137-145) mmol/L Chloride 96 L (98-107) mmol/L Glucose 101 H (74-99) mg/dL POC Glucose (mg/dL) 111 H 181 H (75-99) mg/dL Calcium 8.3 L (8.4-10.2) mg/dL AST 53 H (14-36) U/L Alkaline Phosphatase 369 H (38-126) U/L Total Protein 5.8 L (6.3-8.2) g/dL Albumin 2.4 L (3.5-5.0) g/dL Microbiology - Last 24 Hours (Table) 05/21/16 09:48 Blood Culture - Preliminary Blood No Growth after 48 hours 05/20/16 19:50 Urine Culture - Final Urine,Catheterized Escherichia coli 05/21/16 10:00 Blood Culture - Preliminary Blood No Growth after 24 hours Assessment and Plan Plan: 1. ESBL E. coli UTI with sepsis. Check urine culture and blood culture, ertapenem. Consult with Dr. Rodriguez. On ertapenem. 2. Bilateral pulmonary emboli. Continue patient on Xarelto 15mg orally bid. 3. History of necrotizing fasciitis of the right groin status post multiple surgical intervention. Continue current local care with Dakin solution for the right groin. 4. Diabetes mellitus type 2. Continue Lantus 30 units at bedtime along with sliding scale insulin. BGM before each meal and at bedtime. 5. Stage IV colon cancer with liver metastasis. Hematology oncology consultation, patient did have a computed tomography scan of the abdomen yesterday the result of which still pending. 6. Hypertension and hypertensive cardiovascular disease. Continue lisinopril 20 mg orally once every day. 7. Hypothyroidism. Continue patient on Synthroid 175 g orally once every day. 8. Bilateral lower extremity edema. Continue patient on hydrochlorothiazide 25 mg orally once every day. 9. Anxiety and panic attacks. Continue patient on Xanax 0.25 milligrams orally 2 times every day as needed. 10. Diabetic polyneuropathy. Continue gabapentin 100 mg orally 3 times every day and amitriptyline 25 mg at bedtime. 11. Constipation. Continue patient on current bowel care. 12. DVT prophylaxis. Continue Xarelto 15 mg orally bid. 13. GI prophylaxis. Continue patient on PPI. 14. Generalized weakness. Physical therapy evaluation tomorrow morning. 15. Full code. 16. Prognosis is guarded. Impression and plan of care have been directed as dictated by the signing physician. Arminda Gimenez nurse practitioner acting as scribe for signing physician. Time with Patient: Greater than 30
[2016-05-23 17:01] LABS: Glucose,Whole Blood 159 mg/dL (75-99)
[2016-05-23 20:31] LABS: Glucose,Whole Blood 210 mg/dL (75-99)
[2016-05-23] MEDS: AMITRIPTYLINE HCL 25 MG TAB PO SCH (20:49)
[2016-05-23] MEDS: INSULIN GLARGINE 100 UNIT/ML 10 ML VIAL SQ SCH (20:49)
--- NOTE | 2016-05-23 21:56 | P.PN ---
Subjective Principal diagnosis: Sepsis with UTI Very pleasant 60 woman with the pleasure of seeing in November 2015. At the present time she presented with evidence of diabetic ketoacidosis. There however was also evidence of a significant infection into her right groin that extended to the mons pubis. It appeared that she had evidence of a necrotizing fasciitis and she was transferred to a tertiary care center for the emergent surgery that could not be performed here. The patient relates she had a very protracted hospital stay of about a month and then spent the following months at [facility]. Her home is renovated so that it was capable of living her come back there and she's now been back to her home setting for the last several weeks. The patient relates about 2 weeks ago she did have her Fitzpatrick catheter replaced which is relatively well until she this sudden onset of increasing weakness and malaise. She does have a known history of the metastatic adenocarcinoma over: With liver metastasis. She's undergone extensive treatments including FOLFOX chemotherapy. She relates that today she is feeling slightly better since admission fluids and antibiotic therapy. She was having a low-grade fever home only. She is not having chills or rigors. However she's been having increasing weakness over the days before her admission. She does relate that she's had a remarkable recovery. She is very grateful to the care that she received in the past. She does not have very many urinary symptoms began has a chronic Fitzpatrick catheter in place. She is denying any significant abdominal symptoms denies nausea or emesis. She' s having no constipation or diarrhea. No hematemesis motor or hematochezia. Objective - Vital Signs Vital signs: Vital Signs Temp 98.2 F 05/23/16 21:52 Pulse 72 05/23/16 21:52 Resp 16 05/23/16 21:52 BP 121/56 05/23/16 21:52 Pulse Ox 96 05/23/16 21:52 Intake & Output 05/23/16 05/23/16 05/24/16 06:59 18:59 06:59 Intake Total 480 50 Output Total 1600 1575 Balance -1120 1525 Weight 110.677 kg Intake: Intake, IV Titration 50 Amount Ertapenem 1 gm In Sodium 50 Chloride 0.9% 50 ml @ 100 mls/hr IVPB DAILY [facility] Rx #:[id number] Oral 480 Output: Urine 1600 1575 Uretheral (Fitzpatrick) 1600 Other: Voiding Method Indwelling Catheter Indwelling Catheter - Exam Pleasant 60 woman who suffers from obesity, seems quite comfortable HEENT: Anicteric conjunctiva are pink and moist nasal mucosa grossly intact without significant lesions, there is no thrush. Neck: The neck is supple without significant lymphadenopathy or thyromegaly. Lungs: Symmetrical air entry is noted. There is evidence of a few basilar crackles. No bronchial sounds are heard. No dullness or egophony is noted Heart: Regular rate and rhythm with an audible S1-S2, no S3 no S4. There is no significant murmur click or rub, PMI was nondisplaced. Abdomen: Positive bowel sounds soft and nontender without palpable masses or organomegaly. There was no guarding or rebound. Extremities: The upper extremities have excellent pulses they are symmetric, no significant petechiae or telangiectasia. No splinter hemorrhages were noted. IV site is into the right shoulder area. Functioning well without tenderness. The left lower extremity has a lack of any significant open lesions. Right lower extremity is evaluated. The prior extensive surgical wound is healing. There is evidence of excellent granulation throughout entire base where she's had the extensive incision and drainage for the necrotizing fasciitis. Neuro: Awake alert oriented to person place and time. There are no acute new gross focal sensory motor deficits. - Labs CBC & Chem 7: 05/23/16 06:20 05/23/16 06:20 Labs: Abnormal Lab Results - Last 24 Hours (Table) 05/23/16 05/23/16 05/23/16 Range/Units 06:20 06:20 07:13 RBC 3.54 L (3.80-5.40) m/uL Hgb 9.1 L (11.4-16.0) gm/dL Hct 28.3 L (34.0-46.0) % MCV 79.8 L (80.0-100.0) fL RDW 17.2 H (11.5-15.5) % Sodium 131 L (137-145) mmol/L Chloride 96 L (98-107) mmol/L Glucose 101 H (74-99) mg/dL POC Glucose (mg/dL) 111 H (75-99) mg/dL Calcium 8.3 L (8.4-10.2) mg/dL AST 53 H (14-36) U/L Alkaline Phosphatase 369 H (38-126) U/L Total Protein 5.8 L (6.3-8.2) g/dL Albumin 2.4 L (3.5-5.0) g/dL 05/23/16 05/23/16 05/23/16 Range/Units 11:07 17:00 20:20 RBC (3.80-5.40) m/uL Hgb (11.4-16.0) gm/dL Hct (34.0-46.0) % MCV (80.0-100.0) fL RDW (11.5-15.5) % Sodium (137-145) mmol/L Chloride (98-107) mmol/L Glucose (74-99) mg/dL POC Glucose (mg/dL) 181 H 159 H 210 H (75-99) mg/dL Calcium (8.4-10.2) mg/dL AST (14-36) U/L Alkaline Phosphatase (38-126) U/L Total Protein (6.3-8.2) g/dL Albumin (3.5-5.0) g/dL Microbiology - Last 24 Hours (Table) 05/20/16 19:50 Urine Culture - Final Urine,Catheterized Escherichia coli 05/21/16 10:00 Blood Culture - Preliminary Blood No Growth after 48 hours 05/21/16 09:48 Blood Culture - Preliminary Blood No Growth after 48 hours Laboratory Results WBC 10.0 k/uL (3.8-10.6) 05/23/16 06:20 RBC 3.54 m/uL (3.80-5.40) L 05/23/16 06:20 Hgb 9.1 gm/dL (11.4-16.0) L 05/23/16 06:20 Hct 28.3 % (34.0-46.0) L 05/23/16 06:20 MCV 79.8 fL (80.0-100.0) L 05/23/16 06:20 MCH 25.7 pg (25.0-35.0) 05/23/16 06:20 MCHC 32.2 g/dL (31.0-37.0) 05/23/16 06:20 RDW 17.2 % (11.5-15.5) H 05/23/16 06:20 Plt Count 296 k/uL (150-450) 05/23/16 06:20 Neutrophils % 77 % 05/22/16 07:10 Lymphocytes % 12 % 05/22/16 07:10 Monocytes % 5 % 05/22/16 07:10 Eosinophils % 4 % 05/22/16 07:10 Basophils % 0 % 05/22/16 07:10 Neutrophils # 7.2 k/uL (1.3-7.7) 05/22/16 07:10 Lymphocytes # 1.1 k/uL (1.0-4.8) 05/22/16 07:10 Monocytes # 0.5 k/uL (0-1.0) 05/22/16 07:10 Eosinophils # 0.3 k/uL (0-0.7) 05/22/16 07:10 Basophils # 0.0 k/uL (0-0.2) 05/22/16 07:10 Hypochromasia Slight 05/23/16 06:20 Anisocytosis Slight 05/23/16 06:20 Microcytosis Slight 05/23/16 06:20 PT 14.2 sec (9.0-12.0) H 05/20/16 11:05 INR 1.5 (<1.1) 05/20/16 11:05 APTT 26.0 sec (22.0-30.0) 05/20/16 11:05 Sodium 131 mmol/L (137-145) L 05/23/16 06:20 Potassium 4.0 mmol/L (3.5-5.1) 05/23/16 06:20 Chloride 96 mmol/L (98-107) L 05/23/16 06:20 Carbon Dioxide 26 mmol/L (22-30) 05/23/16 06:20 Anion Gap 9 mmol/L 05/23/16 06:20 BUN 15 mg/dL (7-17) 05/23/16 06:20 Creatinine 0.80 mg/dL (0.52-1.04) 05/23/16 06:20 Est GFR (MDRD) Af Amer >60 (>60 ml/min/1.73 sqM) 05/23/16 06:20 Est GFR (MDRD) Non-Af >60 (>60 ml/min/1.73 sqM) 05/23/16 06:20 Glucose 101 mg/dL (74-99) H 05/23/16 06:20 POC Glucose (mg/dL) 210 mg/dL (75-99) H 05/23/16 20:20 POC Glu Strategic Planning Specialist ID Adelaida Parkinson 05/23/16 20:[address] Glu mg/dL 192 mg/dL 05/20/16 11:05 Hemoglobin A1c 8.3 % (4.2-6.1) H 05/20/16 11:05 Plasma Lactic Acid Sacha 1.9 mmol/L (0.7-2.0) 05/20/16 11:05 Calcium 8.3 mg/dL (8.4-10.2) L 05/23/16 06:20 Phosphorus 3.9 mg/dL (2.5-4.5) 05/20/16 11:05 Magnesium 1.7 mg/dL (1.6-2.3) 05/20/16 11:05 Total Bilirubin 0.7 mg/dL (0.2-1.3) 05/23/16 06:20 AST 53 U/L (14-36) H 05/23/16 06:20 ALT 33 U/L (9-52) 05/23/16 06:20 Alkaline Phosphatase 369 U/L (38-126) H 05/23/16 06:20 Total Creatine Kinase 128 U/L (30-135) 05/20/16 11:05 CK-MB (CK-2) <0.2 ng/mL (0.0-2.4) 05/20/16 11:05 CK-MB (CK-2) Rel Index 05/20/16 11:05 Troponin I <0.012 ng/mL (0.000-0.034) 05/20/16 11:05 Total Protein 5.8 g/dL (6.3-8.2) L 05/23/16 06:20 Albumin 2.4 g/dL (3.5-5.0) L 05/23/16 06:20 Prealbumin 3 mg/dL (18-36) L 05/21/16 10:00 Urine Color Yellow 05/20/16 19:50 Urine Appearance Cloudy (Clear) H 05/20/16 19:50 Urine pH 5.5 (5.0-8.0) 05/20/16 19:50 Ur Specific [place] 1.021 (1.001-1.035) 05/20/16 19:50 Urine Protein 1+ (Negative) H 05/20/16 19:50 Urine Glucose (UA) Negative (Negative) 05/20/16 19:50 Urine Ketones Negative (Negative) 05/20/16 19:50 Urine Blood Small (Negative) H 05/20/16 19:50 Urine Nitrite Negative (Negative) 05/20/16 19:50 Urine Bilirubin 1+ (Negative) H 05/20/16 19:50 Urine Urobilinogen 6.0 mg/dL (<2.0) 05/20/16 19:50 Ur Leukocyte Esterase Large (Negative) H 05/20/16 19:50 Urine RBC 6 /hpf (0-5) H 05/20/16 19:50 Urine WBC >182 /hpf (0-5) H 05/20/16 19:50 Urine WBC Clumps Many /hpf (None) H 05/20/16 19:50 Ur Squamous Epith Cells 1 /hpf (0-4) 05/20/16 19:50 Amorphous Sediment Rare /hpf (None) H 05/20/16 19:50 Urine Bacteria Many /hpf (None) H 05/20/16 19:50 Urine Mucus Few /hpf (None) H 05/20/16 11:05 Urine Yeast (Budding) Many /hpf (None) H 05/20/16 11:05 Influenza Type A RNA Not Detected (Not Detectd) 05/20/16 11:05 Influenza Type B (PCR) Not Detected (Not Detectd) 05/20/16 11:05 Microbiology 05/20/16 19:50 Urine,Catheterized Urine Culture - Final Escherichia coli 05/21/16 10:00 Blood Blood Culture - Preliminary No Growth after 48 hours 05/21/16 09:48 Blood Blood Culture - Preliminary No Growth after 48 hours 05/20/16 11:05 Urine,Catheterized Urine Culture - Final Escherichia coli 05/20/16 11:05 Blood Blood Culture Gram Stain - Final 05/20/16 11:05 Blood Blood Culture - Final Staphylococcus epidermidis 05/20/16 11:05 Blood Blood Culture - Final Assessment and Plan (1) Urinary tract infection associated with indwelling urethral catheter Narrative/Plan: 60-year-old woman presents to hospital with evidence of some weakness. Find evidence of a urinary tract infection. With this ceftriaxone was begun. Laboratory has reported the urine cultures Escherichia coli that is ESBL. Rocephin is changed to ertapenem. We'll plan 10 days at discharge. There is however now a positive blood culture and when this was called vancomycin was started because the gram-positive cocci. Concern this could be contamination versus a staph aureus sepsis given her significant history. Follow up blood cultures have been requested to further evaluate the bacteremia. Fortunately The patient is doing relatively well this point in time. Her edema is under good control. Wound care with the calcium alginate silver product will continue to be changed every other day. Cleansing the area with saline is helpful. Her anxiety is under control this point in time. She was very grateful to see me. The patient does have a underlying history of colon cancer with liver metastasis is being followed by oncology and plans for further intervention once her current infectious process resolves. We'll arrange for the completion course of ertapenem at home. Plan 10 days. Prescription is left. Vancomycin therapy is discontinued for the blood cultures as staph epidermidis which is not correlating with her urine culture. Status: Acute (2) Leukocytosis Status: Acute (3) History of necrotising fasciitis Status: Acute (4) Elevated alkaline phosphatase level Status: Acute (5) Fever Status: Acute (6) Fever Status: Acute
[2016-05-23] MEDS: ALPRAZolam 0.25 MG TAB PO PRN (23:45)
[2016-05-24] MEDS: LEVOTHYROXINE 100 MCG TAB PO SCH (06:10)
[2016-05-24] MEDS: LEVOTHYROXINE 75 MCG TAB PO SCH (06:10)
[2016-05-24 07:09] LABS: Glucose,Whole Blood 117 mg/dL (75-99)
[2016-05-24] MEDS: INSULIN LISPRO (humaLOG) 300 UNIT/3 ML VIAL SQ SCH ×4 (07:31→20:28)
[2016-05-24] MEDS: GABAPENTIN 100 MG CAP PO SCH ×3 (08:03→23:25)
[2016-05-24] MEDS: ERTAPENEM 1 GM in SODIUM CHLORIDE 0.9% 50 ML IVPB SCH (08:03)
[2016-05-24] MEDS: LISINOPRIL 20 MG TAB PO SCH (08:03)
[2016-05-24] MEDS: RIVAROXABAN 15 MG TAB PO SCH ×2 (08:03→17:38)
[2016-05-24] MEDS: PANTOPRAZOLE 40 MG TABLET PO SCH (08:03)
[2016-05-24] MEDS: HYDROCHLOROTHIAZIDE 25 MG TAB PO SCH (08:03)
[2016-05-24 11:51] LABS: Glucose,Whole Blood 151 mg/dL (75-99)
--- NOTE | 2016-05-24 15:50 | P.PN ---
Subjective This is a 60-year-old female one of Dr. Mcghee with a previous medical history significant for hypertension and hypertensive cardiovascular disease, diabetes mellitus type 2, hyperthyroidism, melanoma, obesity, patient was diagnosed with colon cancer back in 2013 underwent partial colectomy has been under the surveillance screening with Dr. Solis when she was diagnosed with recurrence of her disease back in August 2015 after she had a computed tomographic scan that showed a liver metastatic case is ended up going for biopsy that confirmed the diagnosis of adenocarcinoma of the colon and subsequently underwent PET scan in 10/05/2015 and she had a port placed and did receive 4 cycles of chemotherapy in the form of Avastin, 5 floor uracil, and cisplatin, patient ended up seeing a satellite television installer at [facility] Dr. Barr, was supposed to remove half of the liver but because of the advanced nature of that metastatic disease and being closer to a blood vessel it was decided to send the patient for more chemotherapy before deciding on any surgical intervention, patient unfortunately developed to have a boil in her right labia back in November 2015 where she was found to have a severe diabetic ketoacidosis after she was admitted to the hospital and she was found to have a glucose of 800 was treated for that and she was found to have an elevated d- dimer for which she underwent CT angiography that showed bilateral pulmonary emboli was started on heparin drip at that time she was admitted to the intensive care unit at our institution and she was seen by pulmonary medicine as well as by oncology and she was complaining of increased pain in the left groin and she was diagnosed with necrotizing fasciitis subsequently she was seen by general surgery Dr. Felipe ended up going for surgery however because of her status she ended up getting transferred to [facility] for further care was intubated and she stayed there for about 2 weeks and after that she went to [facility] on 12/29/2015 and left to [facility] on the [place] for physical therapy rehabilitation and she was under my care at that point up until recently when she was discharged home and she was supposed to follow-up with her doctor as an outpatient, patient apparently underwent computed tomography scan of the abdomen yesterday that was ordered by for reevaluation of her metastatic disease and developed to have generalized weakness and not able to do much she ended up coming to the ER after she contacted her oncologist she was found to have urinary tract infection with sepsis she was given 1 dose of Rocephin was admitted to hospital urine culture as well as blood culture were obtained. 05/21/2016: Patient is laying down in bed, she is feeling a lot better today, she denies any chest pain, shortness breath, she has no abdominal pain, nausea, her Fitzpatrick catheter was removed, cultures pending. 05/22: patient was quite tearful during evaluation with regards to urinary tract infection but then she further discussed that her cancer has spread and she is unable to take treatment due to the groin wound. Urine culture is positive for ESBL E. coli. Antibiotics of Rocephin changed to ertapenem. 05/23: Patient is feeling quite a bit better today. Plan to increase activity and possible discharge in the next 24-[address] Rodriguez has recommended ertapenem for home. Patient does have a port in the right upper anterior chest that is functioning well. She will be discharged with Fitzpatrick catheter in place. : patient is feeling improvement today and IV antibiotics are being arranged for home. We anticipate she will be ready for discharge by tomorrow. Objective - Vital Signs Vital signs: Vital Signs Temp 98.2 F 05/24/16 07:00 Pulse 67 05/24/16 07:00 Resp 17 05/24/16 07:00 BP 129/71 05/24/16 07:00 Pulse Ox 97 05/24/16 07:00 Intake & Output 05/23/16 05/24/16 05/24/16 18:59 06:59 18:59 Intake Total 50 360 Output Total 1575 2200 1200 Balance -1525 -2200 -840 Weight 110.677 kg 110.677 kg Intake: Intake, IV Titration 50 Amount Ertapenem 1 gm In Sodium 50 Chloride 0.9% 50 ml @ 100 mls/hr IVPB DAILY [facility] Rx #:[id number] Oral 360 Output: Urine 1575 2200 1200 Uretheral (Fitzpatrick) 1200 1200 Other: Voiding Method Indwelling Catheter Indwelling Catheter Indwelling Catheter # Voids 1 # Bowel Movements 1 - Exam General appearance: mild distress, obese - EENT Eyes: anicteric sclerae, EOMI, PERRLA, no ptosis, no scleral icterus, normal appearance ENT: NA/AT, normal oropharynx, no thrush Ears: bilateral: normal - Neck Neck: no lymphadenopathy, normal ROM, no rigidity, no stridor, no thyromegaly Carotids: bilateral: upstroke normal Thyroid: bilateral: normal size - Respiratory Respiratory: bilateral: diminished, negative: dullness, rales, rhonchi, wheezing , prolonged expiration, prolonged inspiration - Cardiovascular Rhythm: regular Heart sounds: normal: S1, S2 Abnormal Heart Sounds: systolic murmur - Gastrointestinal General gastrointestinal: normal bowel sounds, soft, no splenomegaly, no tenderness,. Large incisional hernia. - Integumentary Integumentary: normal, ulcer (There is one in the right groin secondary to muscle surgical intervention for necrotizing fasciitis) - Neurologic Neurologic: CNII-XII intact - Musculoskeletal Musculoskeletal: gait normal - Psychiatric Psychiatric: A&O x's 3, appropriate affect, intact judgment & insight - Gastrointestinal General gastrointestinal: Present: ventral hernia - Labs CBC & Chem 7: 05/23/16 06:20 05/23/16 06:20 Labs: Abnormal Lab Results - Last 24 Hours (Table) 05/23/16 05/23/16 05/24/16 Range/Units 17:00 20:20 07:06 POC Glucose (mg/dL) 159 H 210 H 117 H (75-99) mg/dL Microbiology - Last 24 Hours (Table) 05/20/16 19:50 Urine Culture - Final Urine,Catheterized Escherichia coli 05/21/16 10:00 Blood Culture - Preliminary Blood No Growth after 48 hours 05/21/16 09:48 Blood Culture - Preliminary Blood No Growth after 48 hours Assessment and Plan Plan: 1. ESBL E. coli UTI with sepsis. Check urine culture and blood culture, ertapenem. Consult with Dr. Rodriguez. On ertapenem. 2. Bilateral pulmonary emboli. Continue patient on Xarelto 15mg orally bid. 3. History of necrotizing fasciitis of the right groin status post multiple surgical intervention. Continue current local care with Dakin solution for the right groin. 4. Diabetes mellitus type 2. Continue Lantus 30 units at bedtime along with sliding scale insulin. BGM before each meal and at bedtime. 5. Stage IV colon cancer with liver metastasis. Hematology oncology consultation, patient did have a computed tomography scan of the abdomen yesterday the result of which still pending. 6. Hypertension and hypertensive cardiovascular disease. Continue lisinopril 20 mg orally once every day. 7. Hypothyroidism. Continue patient on Synthroid 175 g orally once every day. 8. Bilateral lower extremity edema. Continue patient on hydrochlorothiazide 25 mg orally once every day. 9. Anxiety and panic attacks. Continue patient on Xanax 0.25 milligrams orally 2 times every day as needed. 10. Diabetic polyneuropathy. Continue gabapentin 100 mg orally 3 times every day and amitriptyline 25 mg at bedtime. 11. Constipation. Continue patient on current bowel care. 12. DVT prophylaxis. Continue Xarelto 15 mg orally bid. 13. GI prophylaxis. Continue patient on PPI. 14. Generalized weakness. Physical therapy evaluation tomorrow morning. 15. Full code. 16. Prognosis is guarded. Impression and plan of care have been directed as dictated by the signing physician. Arminda Gimenez nurse practitioner acting as scribe for signing physician. Time with Patient: Greater than 30
[2016-05-24 15:52] VITALS: RESP 16
[2016-05-24 17:14] LABS: Glucose,Whole Blood 125 mg/dL (75-99)
[2016-05-24 20:12] LABS: Glucose,Whole Blood 177 mg/dL (75-99)
[2016-05-24] MEDS: AMITRIPTYLINE HCL 25 MG TAB PO SCH (20:27)
[2016-05-24] MEDS: INSULIN GLARGINE 100 UNIT/ML 10 ML VIAL SQ SCH (20:28)
--- NOTE | 2016-05-24 22:23 | P.PN ---
Subjective Principal diagnosis: Sepsis with UTI Very pleasant 60 woman with the pleasure of seeing in November 2015. At the present time she presented with evidence of diabetic ketoacidosis. There however was also evidence of a significant infection into her right groin that extended to the mons pubis. It appeared that she had evidence of a necrotizing fasciitis and she was transferred to a tertiary care center for the emergent surgery that could not be performed here. The patient relates she had a very protracted hospital stay of about a month and then spent the following months at [facility]. Her home is renovated so that it was capable of living her come back there and she's now been back to her home setting for the last several weeks. The patient relates about 2 weeks ago she did have her Fitzpatrick catheter replaced which is relatively well until she this sudden onset of increasing weakness and malaise. She does have a known history of the metastatic adenocarcinoma over: With liver metastasis. She's undergone extensive treatments including FOLFOX chemotherapy. She relates that today she is feeling slightly better since admission fluids and antibiotic therapy. She was having a low-grade fever home only. She is not having chills or rigors. However she's been having increasing weakness over the days before her admission. She does relate that she's had a remarkable recovery. She does not have very many urinary symptoms began has a chronic Fitzpatrick catheter in place. She is denying any significant abdominal symptoms denies nausea or emesis. She' s having no constipation or diarrhea. No hematemesis motor or hematochezia. IV andtibiotics being set up. Objective - Vital Signs Vital signs: Vital Signs Temp 98.2 F 05/24/16 15:00 Pulse 65 05/24/16 15:00 Resp 16 05/24/16 15:00 BP 132/71 05/24/16 15:00 Pulse Ox 96 05/24/16 15:00 Intake & Output 05/24/16 05/24/16 05/25/16 06:59 18:59 06:59 Intake Total 930 Output Total 2200 1200 Balance -2200 -270 Weight 110.677 kg Intake: IV 160 Sodium Chloride 0.9% 500 160 ml @ 20 mls/hr Intake, IV Titration 50 Amount Ertapenem 1 gm In Sodium 50 Chloride 0.9% 50 ml @ 100 mls/hr IVPB DAILY [facility] Rx #:[id number] Oral 720 Output: Urine 2200 1200 Uretheral (Fitzpatrick) 1200 1200 Other: Voiding Method Indwelling Catheter Indwelling Catheter Indwelling Catheter # Voids 1 1 # Bowel Movements 1 - Exam Pleasant 60 woman who suffers from obesity, seems quite comfortable HEENT: Anicteric conjunctiva are pink and moist nasal mucosa grossly intact without significant lesions, there is no thrush. Neck: The neck is supple without significant lymphadenopathy or thyromegaly. Lungs: Symmetrical air entry is noted. There is evidence of a few basilar crackles. No bronchial sounds are heard. No dullness or egophony is noted Heart: Regular rate and rhythm with an audible S1-S2, no S3 no S4. There is no significant murmur click or rub, PMI was nondisplaced. Abdomen: Positive bowel sounds soft and nontender without palpable masses or organomegaly. There was no guarding or rebound. Extremities: The upper extremities have excellent pulses they are symmetric, no significant petechiae or telangiectasia. No splinter hemorrhages were noted. IV site is into the right shoulder area. Functioning well without tenderness. The left lower extremity has a lack of any significant open lesions. Right lower extremity is evaluated. The prior extensive surgical wound is healing. There is evidence of excellent granulation throughout entire base where she's had the extensive incision and drainage for the necrotizing fasciitis. Neuro: Awake alert oriented to person place and time. There are no acute new gross focal sensory motor deficits. - Labs CBC & Chem 7: 05/23/16 06:20 05/23/16 06:20 Labs: Abnormal Lab Results - Last 24 Hours (Table) 05/24/16 05/24/16 05/24/16 Range/Units 07:06 11:50 17:11 POC Glucose (mg/dL) 117 H 151 H 125 H (75-99) mg/dL 05/24/16 Range/Units 20:11 POC Glucose (mg/dL) 177 H (75-99) mg/dL Microbiology - Last 24 Hours (Table) 05/21/16 10:00 Blood Culture - Preliminary Blood No Growth after 72 hours 05/21/16 09:48 Blood Culture - Preliminary Blood No Growth after 72 hours Laboratory Results WBC 10.0 k/uL (3.8-10.6) 05/23/16 06:20 RBC 3.54 m/uL (3.80-5.40) L 05/23/16 06:20 Hgb 9.1 gm/dL (11.4-16.0) L 05/23/16 06:20 Hct 28.3 % (34.0-46.0) L 05/23/16 06:20 MCV 79.8 fL (80.0-100.0) L 05/23/16 06:20 MCH 25.7 pg (25.0-35.0) 05/23/16 06:20 MCHC 32.2 g/dL (31.0-37.0) 05/23/16 06:20 RDW 17.2 % (11.5-15.5) H 05/23/16 06:20 Plt Count 296 k/uL (150-450) 05/23/16 06:20 Neutrophils % 77 % 05/22/16 07:10 Lymphocytes % 12 % 05/22/16 07:10 Monocytes % 5 % 05/22/16 07:10 Eosinophils % 4 % 05/22/16 07:10 Basophils % 0 % 05/22/16 07:10 Neutrophils # 7.2 k/uL (1.3-7.7) 05/22/16 07:10 Lymphocytes # 1.1 k/uL (1.0-4.8) 05/22/16 07:10 Monocytes # 0.5 k/uL (0-1.0) 05/22/16 07:10 Eosinophils # 0.3 k/uL (0-0.7) 05/22/16 07:10 Basophils # 0.0 k/uL (0-0.2) 05/22/16 07:10 Hypochromasia Slight 05/23/16 06:20 Anisocytosis Slight 05/23/16 06:20 Microcytosis Slight 05/23/16 06:20 PT 14.2 sec (9.0-12.0) H 05/20/16 11:05 INR 1.5 (<1.1) 05/20/16 11:05 APTT 26.0 sec (22.0-30.0) 05/20/16 11:05 Sodium 131 mmol/L (137-145) L 05/23/16 06:20 Potassium 4.0 mmol/L (3.5-5.1) 05/23/16 06:20 Chloride 96 mmol/L (98-107) L 05/23/16 06:20 Carbon Dioxide 26 mmol/L (22-30) 05/23/16 06:20 Anion Gap 9 mmol/L 05/23/16 06:20 BUN 15 mg/dL (7-17) 05/23/16 06:20 Creatinine 0.80 mg/dL (0.52-1.04) 05/23/16 06:20 Est GFR (MDRD) Af Amer >60 (>60 ml/min/1.73 sqM) 05/23/16 06:20 Est GFR (MDRD) Non-Af >60 (>60 ml/min/1.73 sqM) 05/23/16 06:20 Glucose 101 mg/dL (74-99) H 05/23/16 06:20 POC Glucose (mg/dL) 177 mg/dL (75-99) H 05/24/16 20:11 POC Glu Ticket Manager Yvonne Girard 05/24/16 20:[address] Glu mg/dL 192 mg/dL 05/20/16 11:05 Hemoglobin A1c 8.3 % (4.2-6.1) H 05/20/16 11:05 Plasma Lactic Acid Sacha 1.9 mmol/L (0.7-2.0) 05/20/16 11:05 Calcium 8.3 mg/dL (8.4-10.2) L 05/23/16 06:20 Phosphorus 3.9 mg/dL (2.5-4.5) 05/20/16 11:05 Magnesium 1.7 mg/dL (1.6-2.3) 05/20/16 11:05 Total Bilirubin 0.7 mg/dL (0.2-1.3) 05/23/16 06:20 AST 53 U/L (14-36) H 05/23/16 06:20 ALT 33 U/L (9-52) 05/23/16 06:20 Alkaline Phosphatase 369 U/L (38-126) H 05/23/16 06:20 Total Creatine Kinase 128 U/L (30-135) 05/20/16 11:05 CK-MB (CK-2) <0.2 ng/mL (0.0-2.4) 05/20/16 11:05 CK-MB (CK-2) Rel Index 05/20/16 11:05 Troponin I <0.012 ng/mL (0.000-0.034) 05/20/16 11:05 Total Protein 5.8 g/dL (6.3-8.2) L 05/23/16 06:20 Albumin 2.4 g/dL (3.5-5.0) L 05/23/16 06:20 Prealbumin 3 mg/dL (18-36) L 05/21/16 10:00 Urine Color Yellow 05/20/16 19:50 Urine Appearance Cloudy (Clear) H 05/20/16 19:50 Urine pH 5.5 (5.0-8.0) 05/20/16 19:50 Ur Specific [place] 1.021 (1.001-1.035) 05/20/16 19:50 Urine Protein 1+ (Negative) H 05/20/16 19:50 Urine Glucose (UA) Negative (Negative) 05/20/16 19:50 Urine Ketones Negative (Negative) 05/20/16 19:50 Urine Blood Small (Negative) H 05/20/16 19:50 Urine Nitrite Negative (Negative) 05/20/16 19:50 Urine Bilirubin 1+ (Negative) H 05/20/16 19:50 Urine Urobilinogen 6.0 mg/dL (<2.0) 05/20/16 19:50 Ur Leukocyte Esterase Large (Negative) H 05/20/16 19:50 Urine RBC 6 /hpf (0-5) H 05/20/16 19:50 Urine WBC >182 /hpf (0-5) H 05/20/16 19:50 Urine WBC Clumps Many /hpf (None) H 05/20/16 19:50 Ur Squamous Epith Cells 1 /hpf (0-4) 05/20/16 19:50 Amorphous Sediment Rare /hpf (None) H 05/20/16 19:50 Urine Bacteria Many /hpf (None) H 05/20/16 19:50 Urine Mucus Few /hpf (None) H 05/20/16 11:05 Urine Yeast (Budding) Many /hpf (None) H 05/20/16 11:05 Influenza Type A RNA Not Detected (Not Detectd) 05/20/16 11:05 Influenza Type B (PCR) Not Detected (Not Detectd) 05/20/16 11:05 Microbiology 05/21/16 10:00 Blood Blood Culture - Preliminary No Growth after 72 hours 05/21/16 09:48 Blood Blood Culture - Preliminary No Growth after 72 hours 05/20/16 19:50 Urine,Catheterized Urine Culture - Final Escherichia coli 05/20/16 11:05 Urine,Catheterized Urine Culture - Final Escherichia coli 05/20/16 11:05 Blood Blood Culture Gram Stain - Final 05/20/16 11:05 Blood Blood Culture - Final Staphylococcus epidermidis 05/20/16 11:05 Blood Blood Culture - Final Assessment and Plan (1) Urinary tract infection associated with indwelling urethral catheter Narrative/Plan: 60-year-old woman presents to hospital with evidence of some weakness. Find evidence of a urinary tract infection. With this ceftriaxone was begun. Laboratory has reported the urine cultures Escherichia coli that is ESBL. Rocephin is changed to ertapenem. We'll plan 10 days at discharge. There is however now a positive blood culture and when this was called vancomycin was started because the gram-positive cocci. Concern this could be contamination versus a staph aureus sepsis given her significant history. Follow up blood cultures have been requested to further evaluate the bacteremia. Fortunately The patient is doing relatively well this point in time. Her edema is under good control. Wound care with the calcium alginate silver product will continue to be changed every other day. Cleansing the area with saline is helpful. Her anxiety is under control this point in time. She was very grateful to see me. The patient does have a underlying history of colon cancer with liver metastasis is being followed by oncology and plans for further intervention once her current infectious process resolves. We'll arrange for the completion course of ertapenem at home. Plan 10 days. Prescription is left. Vancomycin therapy is discontinued for the blood cultures as staph epidermidis which is not correlating with her urine culture. Status: Acute (2) Leukocytosis Status: Acute (3) History of necrotising fasciitis Status: Acute (4) Elevated alkaline phosphatase level Status: Acute (5) Fever Status: Acute (6) Fever Status: Acute
[2016-05-24 23:23] VITALS: PULSE 69
[2016-05-24] MEDS: ALPRAZolam 0.25 MG TAB PO PRN (23:24)
[2016-05-25] MEDS: LEVOTHYROXINE 75 MCG TAB PO SCH (06:15)
[2016-05-25] MEDS: LEVOTHYROXINE 100 MCG TAB PO SCH (06:15)
[2016-05-25 06:23] LABS: Anisocytosis Slight; CH 25.2; CHCM 31.9; HCT 28.2 % (34.0-46.0); HDW 2.91; HGB 9.3 gm/dL (11.4-16.0); Hypochromasia Slight; MCH 26.1 pg (25.0-35.0); MCV 79.1 fL (80.0-100.0); Mean Platelet Volume 7.2; Microcytosis Slight; RBC 3.56 m/uL (3.80-5.40); WBC 8.8 k/uL (3.8-10.6)
[2016-05-25 06:36] LABS: ALT 33 U/L (9-52); AST 53 U/L (14-36); Alkaline Phosphatase 411 U/L (38-126); Anion Gap 7 mmol/L; Blood Urea Nitrogen 15 mg/dL (7-17); Calcium 8.5 mg/dL (8.4-10.2); Carbon Dioxide 29 mmol/L (22-30); Chloride 97 mmol/L (98-107); Glucose 127 mg/dL (74-99); Non-African American GFR(MDRD) >60 (>60 ml/min/1.73 sqM); Potassium 4.3 mmol/L (3.5-5.1); Sodium 133 mmol/L (137-145); Total Bilirubin 0.5 mg/dL (0.2-1.3)
[2016-05-25 07:18] LABS: Glucose,Whole Blood 132 mg/dL (75-99)
[2016-05-25] MEDS: ERTAPENEM 1 GM in SODIUM CHLORIDE 0.9% 50 ML IVPB SCH (08:30)
[2016-05-25] MEDS: RIVAROXABAN 15 MG TAB PO SCH (08:31)
[2016-05-25] MEDS: GABAPENTIN 100 MG CAP PO SCH (08:31)
[2016-05-25] MEDS: PANTOPRAZOLE 40 MG TABLET PO SCH (08:31)
[2016-05-25] MEDS: INSULIN LISPRO (humaLOG) 300 UNIT/3 ML VIAL SQ SCH (08:31)
[2016-05-25] MEDS: HYDROCHLOROTHIAZIDE 25 MG TAB PO SCH (08:32)
[2016-05-25] MEDS: LISINOPRIL 20 MG TAB PO SCH (08:33)
[2016-05-25 08:39] VITALS: BP 140/83; TEMP 97.9
[2016-05-25 12:14] LABS: Glucose,Whole Blood 145 mg/dL (75-99)
--- NOTE | 2016-05-25 14:04 | P.DS ---
Providers Date of admission: 05/20/16 12:12 Expected date of discharge: 05/25/16 Attending physician: Mona Membreno Consults: 05/20/16 12:27 Consult Physician Routine Consulting Provider: Marvin Rodriguez Consult Reason/Comments: uti Do you want consulting provider notified?: Yes Consult Physician Routine Consulting Provider: Stefani Kaye Consult Reason/Comments: liver cancer Do you want consulting provider notified?: Yes Primary care physician: Haris Mcghee [facility] Course: This is a 60-year-old female one of Dr. Mcghee with a previous medical history significant for hypertension and hypertensive cardiovascular disease, diabetes mellitus type 2, hyperthyroidism, melanoma, obesity, patient was diagnosed with colon cancer back in 2013 underwent partial colectomy has been under the surveillance screening with Dr. Solis when she was diagnosed with recurrence of her disease back in August 2015 after she had a computed tomographic scan that showed a liver metastatic case is ended up going for biopsy that confirmed the diagnosis of adenocarcinoma of the colon and subsequently underwent PET scan in 10/05/2015 and she had a port placed and did receive 4 cycles of chemotherapy in the form of Avastin, 5 floor uracil, and cisplatin, patient ended up seeing a behavioral health care coordinator at [facility] Dr. Barr, was supposed to remove half of the liver but because of the advanced nature of that metastatic disease and being closer to a blood vessel it was decided to send the patient for more chemotherapy before deciding on any surgical intervention, patient unfortunately developed to have a boil in her right labia back in November 2015 where she was found to have a severe diabetic ketoacidosis after she was admitted to the hospital and she was found to have a glucose of 800 was treated for that and she was found to have an elevated d- dimer for which she underwent CT angiography that showed bilateral pulmonary emboli was started on heparin drip at that time she was admitted to the intensive care unit at our institution and she was seen by pulmonary medicine as well as by oncology and she was complaining of increased pain in the left groin and she was diagnosed with necrotizing fasciitis subsequently she was seen by general surgery Dr. Felipe ended up going for surgery however because of her status she ended up getting transferred to [facility] for further care was intubated and she stayed there for about 2 weeks and after that she went to [facility] on 12/29/2015 and left to [facility] on the [place] for physical therapy rehabilitation and she was under my care at that point up until recently when she was discharged home and she was supposed to follow-up with her doctor as an outpatient, patient apparently underwent computed tomography scan of the abdomen yesterday that was ordered by for reevaluation of her metastatic disease and developed to have generalized weakness and not able to do much she ended up coming to the ER after she contacted her oncologist she was found to have urinary tract infection with sepsis she was given 1 dose of Rocephin was admitted to hospital urine culture as well as blood culture were obtained. 05/21/2016: Patient is laying down in bed, she is feeling a lot better today, she denies any chest pain, shortness breath, she has no abdominal pain, nausea, her Noble catheter was removed, cultures pending. 05/22: patient was quite tearful during evaluation with regards to urinary tract infection but then she further discussed that her cancer has spread and she is unable to take treatment due to the groin wound. Urine culture is positive for ESBL E. coli. Antibiotics of Rocephin changed to ertapenem. 05/23: Patient is feeling quite a bit better today. Plan to increase activity and possible discharge in the next 24-[address] Rodriguez has recommended ertapenem for home. Patient does have a port in the right upper anterior chest that is functioning well. She will be discharged with Noble catheter in place. 05/24: patient is feeling improvement today and IV antibiotics are being arranged for home. We anticipate she will be ready for discharge by tomorrow. 05/25: Patient continues to feel improved. Arrangements are being made for discharge home today. Patient will be discharged home in stable condition. Discharge diagnoses: 1. ESBL E. coli UTI with sepsis. 2. Bilateral pulmonary emboli. 3. History of necrotizing fasciitis of the right groin status post multiple surgical intervention. 4. Diabetes mellitus type 2. 5. Stage IV colon cancer with liver metastasis. 6. Hypertension and hypertensive cardiovascular disease. 7. Hypothyroidism. 8. Bilateral lower extremity edema. 9. Anxiety and panic attacks. 10. Diabetic polyneuropathy. 11. Constipation. 12. Generalized weakness. Discharge plan: Home with [facility] Impression and plan of care have been directed as dictated by the signing physician. Arminda Gimenez nurse practitioner acting as scribe for signing physician. Cc: Dr. Haris Mcghee Patient Condition at Discharge: Good Plan - Discharge Summary New Discharge Prescriptions: Ertapenem [INVanz] 1 gm IVPB Q24H #10 bag Discharge Medication List Insulin Glargine,Hum.rec.anlog [Lantus Solostar] 30 units SQ HS 11/11/13 [ History] Lisinopril [Prinivil] 20 mg PO DAILY 11/19/14 [History] ALPRAZolam [Xanax] 0.25 mg PO TID PRN 12/08/15 [History] INSULIN LISPRO (humaLOG) [humaLOG (formulary)] See Protocol SQ AC-TID 12/08/15 [ History] Amitriptyline HCl [Elavil] 25 mg PO HS 02/18/16 [History] Gabapentin [Neurontin] 100 mg PO Q8H 02/18/16 [History] Hydrochlorothiazide 25 mg PO DAILY 05/20/16 [History] Levothyroxine Sodium [Synthroid] 175 mcg PO DAILY 05/20/16 [History] Ondansetron HCl [Zofran] 4 mg PO Q6H PRN 05/20/16 [History] Rivaroxaban [Xarelto] 15 mg PO DAILY 05/20/16 [History] Ertapenem [INVanz] 1 gm IVPB Q24H #10 bag 05/22/16 [Rx] Follow up Appointment(s)/Referral(s): Marvin Rodriguez MD [STAFF PHYSICIAN] - 06/08/16 2:45 pm Haris Mcghee MD [Primary Care Provider] - 06/05/16 8:30 am Mj Elliott MD [STAFF PHYSICIAN] - 05/26/16 1:45 pm [facility] Visiting Nurse, [NON-STAFF] - 1 Week Ambulatory/Diagnostic Orders: Basic Metabolic Panel [LAB.AMB] Location: Determined By Patient Complete Blood Count w/diff [LAB.AMB] Location: Determined By Patient Patient Instructions/Handouts: Ertapenem (By injection), Urinary Tract Infection in Women (DC), Fever in Adults (GEN), Extended Spectrum Beta Lactamase (GEN) Activity/Diet/Wound Care/Special Instructions: [facility]- Diet: consistent carb activity as tolerated noble placed on 05/20/16 port access 3/25/17 Discharge Disposition: HOME WITH HOME HEALTH SERVICES
== END 2016-05-25 14:15 | disposition home health service (06) | DRG 698 ==
LOC: EC 10:50 → 5ONC 12:12
PROVIDERS: ADMIT Internal Medicine; ATTEND Internal Medicine
DX: T83.511A Infection and inflammatory reaction due to indwelling urethral catheter, initial encounter (principal); A41.51 Sepsis due to Escherichia coli [E. coli]; I26.99 Other pulmonary embolism without acute cor pulmonale; C78.7 Secondary malignant neoplasm of liver and intrahepatic bile duct; Z68.41 Body mass index [BMI] 40.0-44.9, adult; E87.1 Hypo-osmolality and hyponatremia; N39.0 Urinary tract infection, site not specified; J98.11 Atelectasis; E66.9 Obesity, unspecified; I11.9 Hypertensive heart disease without heart failure; E11.42 Type 2 diabetes mellitus with diabetic polyneuropathy; E87.8 Other disorders of electrolyte and fluid balance, not elsewhere classified; Z16.12 Extended spectrum beta lactamase (ESBL) resistance; E78.5 Hyperlipidemia, unspecified; E03.9 Hypothyroidism, unspecified; F41.0 Panic disorder [episodic paroxysmal anxiety]; D64.9 Anemia, unspecified; K21.9 Gastro-esophageal reflux disease without esophagitis; K59.00 Constipation, unspecified; S31.40XD Unspecified open wound of vagina and vulva, subsequent encounter; Z93.3 Colostomy status; Z90.710 Acquired absence of both cervix and uterus; Z90.49 Acquired absence of other specified parts of digestive tract; Z85.820 Personal history of malignant melanoma of skin; Z85.038 Personal history of other malignant neoplasm of large intestine; Z79.01 Long term (current) use of anticoagulants; Z79.4 Long term (current) use of insulin; Z79.899 Other long term (current) drug therapy
CPT/HCPCS: 36415; 71020; 74177; 80053; 81001; 82550; 82553; 83036; 83605; 83735; 84100; 84134; 84484; 85025; 85027; 85610; 85730; 87040; 87077; 87086; 87186; 87502; 93005; 96365; 99285

== ENCOUNTER 2016-06-07 11:41 | Emergency (ER) | payer BC ==
[2016-06-07] MEDS ORDERED: SODIUM CHLORIDE 0.9% 1,000 ML IV STA (12:05)
[2016-06-07] MEDS ORDERED: ONDANSETRON 4 MG/2 ML VIAL IVP STA (12:05)
--- NOTE | 2016-06-07 12:08 | ED ---
General Adult HPI - General Chief complaint: Weakness Stated complaint: weakness Time Seen by Provider: 06/07/16 11:45 Source: RN notes reviewed - History of Present Illness Initial comments: This is a 60-year-old female with past medical history significant for colon cancer with metastatic disease to her liver. Patient states while getting chemotherapy she had necrotizing fasciitis and had surgery on her so there is been no treatment of the cancer since November. Patient states her infection is almost completely healed. Patient states more recently she has been put on Invanz because of the E. coli infection. Patient states she has been vomiting 2 -3 times a week and has diarrhea almost every day. Patient denies any pain. She denies headache patient denies numbness weakness. Patient denies any chest pain palpitations difficulty breathing or shortness of breath. Patient denies any recent fever chills or cough. Patient denies abdominal pain. Patient denies any back pain. Patient denies dysuria hematuria urinary frequency. Patient states this morning she was so weak that she fell but she did not notice any focal weakness. There was a generalized weakness. Patient states she saw her oncologist yesterday and he said that from the latest results her cancer is progressing - Related Data Home Medications Medication Instructions Recorded Confirmed Insulin Glargine,Hum.rec.anlog 30 units SQ HS 11/11/13 06/07/16 [Lantus Solostar] Lisinopril [Prinivil] 20 mg PO DAILY 11/19/14 06/07/16 ALPRAZolam [Xanax] 0.25 mg PO TID PRN 12/08/15 06/07/16 INSULIN LISPRO (humaLOG) [humaLOG See Protocol SQ AC-TID 12/08/15 06/07/16 (formulary)] Amitriptyline HCl [Elavil] 25 mg PO HS 02/18/16 06/07/16 Gabapentin [Neurontin] 100 mg PO Q8H 02/18/16 06/07/16 Hydrochlorothiazide 25 mg PO DAILY 05/20/16 06/07/16 Levothyroxine Sodium [Synthroid] 175 mcg PO DAILY 05/20/16 06/07/16 Ondansetron HCl [Zofran] 4 mg PO Q6H PRN 05/20/16 06/07/16 Rivaroxaban [Xarelto] 15 mg PO BID 05/20/16 06/07/16 Collagenase [Santyl] 1 applic TOPICAL DAILY 06/07/16 06/07/16 Previous Rx's Medication Instructions Recorded Ertapenem [INVanz] 1 gm IVPB Q24H #10 bag 05/22/16 Allergies Allergy/AdvReac Type Severity Reaction Status Date / Time No Known Allergies Allergy Verified 06/07/16 13:22 Review of Systems ROS Statement: Those systems with pertinent positive or pertinent negative responses have been documented in the HPI. ROS Other: All systems not noted in ROS Statement are negative. Past Medical History Past Medical History: Cancer, Diabetes Mellitus, GERD/Reflux, Hyperlipidemia, Hypertension, Liver Disease, Pulmonary Embolus (PE), Skin Disorder, Thyroid Disorder Additional Past Medical History / Comment(s): heart murmer, colon cancer, liver cancer, MELANOMA, liver lesions on CT scan 09/10 History of Any Multi-Drug Resistant Organisms: ESBL Date of last positivie culture/infection: 05/20/16 MDRO Source:: E.COLI URINE Past Surgical History: Bowel Resection, Cholecystectomy, Hysterectomy Additional Past Surgical History / Comment(s): BOWEL RESECTION 10/2013- colostomy /later reversal. bilateral oopherectomy, exploratory laperotomy, SURG RT THIGH D/T MELANOMA, exploratory laparotomy with sigmoidectomy, loop colostomy with colostomy reversal, resection of melanoma, total abdominal hysterectomy with bilateral salpingo-oophorectomy, EGD and colonoscopy 2014, necrotizing fasciitis of the right labia post 9 surgical interventions an initial wound greater than 45 cm Past Anesthesia/Blood Transfusion Reactions: No Reported Reaction Past Psychological History: Anxiety Additional Psychological History / Comment(s): SEASONAL AFFECTIVE DISORDER Smoking Status: Never smoker Past Alcohol Use History: None Reported Past Drug Use History: None Reported - Past Family History Mother Family Medical History: Diabetes Mellitus, Hypertension (Mother is 87-year-old has history of diabetes and hypertension.) Father Family Medical History: Renal Disease (Father at age of 74 from acute renal failure.) Brother(s) Family Medical History: No Reported History (Patient has 2 brothers no major medical problems.) Sister(s) Family Medical History: Cancer, Diabetes Mellitus (Patient has 2 sisters one with diabetes mellitus type 2 and has never ) Additional Family Medical History / Comment(s): Colon General Exam - General Exam Comments Initial Comments: GENERAL: Patient is well-developed and well-nourished. Patient is nontoxic and well- hydrated and is in mild distress. ENT: Neck is soft and supple. No significant lymphadenopathy is noted. Oropharynx is clear. Moist mucous membranes. Neck has full range of motion without eliciting any pain. EYES: The sclera were anicteric and conjunctiva were pink and moist. Extraocular movements were intact and pupils were equal round and reactive to light. Eyelids were unremarkable. PULMONARY: Unlabored respirations. Good breath sounds bilaterally. No audible rales rhonchi or wheezing was noted. CARDIOVASCULAR: There is a regular rate and rhythm without any murmurs gallops or rubs. ABDOMEN: Soft and nontender with normal bowel sounds. No palpable organomegaly was noted. There is no palpable pulsatile mass. SKIN: Skin is clear with no lesions or rashes and otherwise unremarkable. NEUROLOGIC: Patient is alert and oriented x3. Cranial nerves II through XII are grossly intact. Motor and sensory are also intact. Normal speech, volume and content. Symmetrical smile. MUSCULOSKELETAL: Normal extremities with adequate strength and full range of motion. No lower extremity swelling or edema. No calf tenderness. LYMPHATICS: No significant lymphadenopathy is noted PSYCHIATRIC: Normal psychiatric evaluation. Normal interpersonal interactions appears functionally intact in deals appropriately with others. No signs of depression. No signs of anxiety. Course Vital Signs 06/07/16 06/07/16 06/07/16 11:45 14:12 15:00 Temperature 97.7 F Pulse Rate 89 77 87 Respiratory 18 18 18 Rate Blood Pressure 132/67 131/63 133/64 O2 Sat by Pulse 95 98 96 Oximetry Medical Decision Making - Medical Decision Making EKG shows normal sinus rhythm at 93 bpm NJ interval is on a 42 QRS is 88 QT interval 380 QTC is 472 per patient's EKG shows no ST segment elevation or depression however the patient does have some flattening of the T waves in V5 V6 and some inverted T waves in 1 and aVL Computed tomography scan of the chest showed some continues air around the [employer] when I spoke with the patient she agreed that the visiting nurse missed while placing the IV and that potentially work comes from. There is no redness and interstitial no swelling there is no crepitus I can feel and the patient has no pain in that area whatsoever. I spoke with Dr. Lopez about this and he was in agreement that the patient could go home. - Lab Data Result diagrams: 06/07/16 12:00 06/07/16 12:00 Lab Results 06/07/16 06/07/16 06/07/16 Range/Units 12:00 12:00 12:00 WBC 14.1 H (3.8-10.6) k/uL RBC 3.89 (3.80-5.40) m/uL Hgb 10.1 L (11.4-16.0) gm/dL Hct 31.6 L (34.0-46.0) % MCV 81.1 (80.0-100.0) fL MCH 25.9 (25.0-35.0) pg MCHC 32.0 (31.0-37.0) g/dL RDW 17.4 H (11.5-15.5) % Plt Count 258 (150-450) k/uL Neutrophils % 87 % Lymphocytes % 7 % Monocytes % 4 % Eosinophils % 1 % Basophils % 0 % Neutrophils # 12.3 H (1.3-7.7) k/uL Lymphocytes # 1.0 (1.0-4.8) k/uL Monocytes # 0.5 (0-1.0) k/uL Eosinophils # 0.1 (0-0.7) k/uL Basophils # 0.0 (0-0.2) k/uL Hypochromasia Slight Anisocytosis Slight Microcytosis Slight PT (9.0-12.0) sec INR (<1.1) APTT (22.0-30.0) sec Sodium 133 L (137-145) mmol/L Potassium 3.4 L (3.5-5.1) mmol/L Chloride 97 L (98-107) mmol/L Carbon Dioxide 26 (22-30) mmol/L Anion Gap 10 mmol/L BUN 17 (7-17) mg/dL Creatinine 0.80 (0.52-1.04) mg/dL Est GFR (MDRD) Af Amer >60 (>60 ml/min/1.73 sqM) Est GFR (MDRD) Non-Af >60 (>60 ml/min/1.73 sqM) Glucose 281 H (74-99) mg/dL Calcium 8.0 L (8.4-10.2) mg/dL Magnesium 1.7 (1.6-2.3) mg/dL Total Bilirubin 1.6 H (0.2-1.3) mg/dL AST 236 H (14-36) U/L ALT 79 H (9-52) U/L Alkaline Phosphatase 1248 H (38-126) U/L Total Creatine Kinase 288 H (30-135) U/L CK-MB (CK-2) <0.2 (0.0-2.4) ng/mL CK-MB (CK-2) Rel Index Troponin I <0.012 (0.000-0.034) ng/mL Total Protein 6.1 L (6.3-8.2) g/dL Albumin 2.5 L (3.5-5.0) g/dL Urine Color Urine Appearance (Clear) Urine pH (5.0-8.0) Ur Specific [place] (1.001-1.035) Urine Protein (Negative) Urine Glucose (UA) (Negative) Urine Ketones (Negative) Urine Blood (Negative) Urine Nitrite (Negative) Urine Bilirubin (Negative) Urine Urobilinogen (<2.0) mg/dL Ur Leukocyte Esterase (Negative) Urine WBC (0-5) /hpf Hyaline Casts (0-2) /lpf Urine Mucus (None) /hpf 06/07/16 06/07/16 Range/Units 12:00 13:53 WBC (3.8-10.6) k/uL RBC (3.80-5.40) m/uL Hgb (11.4-16.0) gm/dL Hct (34.0-46.0) % MCV (80.0-100.0) fL MCH (25.0-35.0) pg MCHC (31.0-37.0) g/dL RDW (11.5-15.5) % Plt Count (150-450) k/uL Neutrophils % % Lymphocytes % % Monocytes % % Eosinophils % % Basophils % % Neutrophils # (1.3-7.7) k/uL Lymphocytes # (1.0-4.8) k/uL Monocytes # (0-1.0) k/uL Eosinophils # (0-0.7) k/uL Basophils # (0-0.2) k/uL Hypochromasia Anisocytosis Microcytosis PT 13.7 H (9.0-12.0) sec INR 1.4 (<1.1) APTT 80.3 H (22.0-30.0) sec Sodium (137-145) mmol/L Potassium (3.5-5.1) mmol/L Chloride (98-107) mmol/L Carbon Dioxide (22-30) mmol/L Anion Gap mmol/L BUN (7-17) mg/dL Creatinine (0.52-1.04) mg/dL Est GFR (MDRD) Af Amer (>60 ml/min/1.73 sqM) Est GFR (MDRD) Non-Af (>60 ml/min/1.73 sqM) Glucose (74-99) mg/dL Calcium (8.4-10.2) mg/dL Magnesium (1.6-2.3) mg/dL Total Bilirubin (0.2-1.3) mg/dL AST (14-36) U/L ALT (9-52) U/L Alkaline Phosphatase (38-126) U/L Total Creatine Kinase (30-135) U/L CK-MB (CK-2) (0.0-2.4) ng/mL CK-MB (CK-2) Rel Index Troponin I (0.000-0.034) ng/mL Total Protein (6.3-8.2) g/dL Albumin (3.5-5.0) g/dL Urine Color Dark Yellow Urine Appearance Clear (Clear) Urine pH 6.0 (5.0-8.0) Ur Specific [place] >1.050 H (1.001-1.035) Urine Protein 1+ H (Negative) Urine Glucose (UA) Negative (Negative) Urine Ketones Negative (Negative) Urine Blood Negative (Negative) Urine Nitrite Negative (Negative) Urine Bilirubin 1+ H (Negative) Urine Urobilinogen 2.0 (<2.0) mg/dL Ur Leukocyte Esterase Negative (Negative) Urine WBC 4 (0-5) /hpf Hyaline Casts 31 H (0-2) /lpf Urine Mucus Rare H (None) /hpf Disposition Clinical Impression: Generalized weakness, Elevated liver enzymes, Metastatic colon cancer to liver Disposition: HOME SELF-CARE Instructions: Weakness (ED) Referrals: Haris Mcghee MD [Primary Care Provider] - 1-2 days Time of Disposition: 12:40
[2016-06-07] MEDS ORDERED: RX INFO: IV CONTRAST WAS GIVEN 1 EACH MISC MISCELLANE PRN (12:10)
[2016-06-07 12:26] LABS: Anisocytosis Slight; Basophils % (A) 0 %; CH 25.3; CHCM 31.2; Eosinophils # (A) 0.1 k/uL (0-0.7); Eosinophils % (A) 1 %; HCT 31.6 % (34.0-46.0); HDW 2.58; HGB 10.1 gm/dL (11.4-16.0); Hypochromasia Slight; Luc # (Auto) 0.22; Luc % (Auto) 2; Lymphocytes % (A) 7 %; MCH 25.9 pg (25.0-35.0); MCV 81.1 fL (80.0-100.0); Microcytosis Slight; Monocytes # (A) 0.5 k/uL (0-1.0); Monocytes % (A) 4 %; Neutrophils # (A) 12.3 k/uL (1.3-7.7); Neutrophils % (A) 87 %; RBC 3.89 m/uL (3.80-5.40); RDW 17.4 % (11.5-15.5); WBC 14.1 k/uL (3.8-10.6)
[2016-06-07 12:28] LABS: ALT 79 U/L (9-52); AST 236 U/L (14-36); Alkaline Phosphatase 1248 U/L (38-126); Anion Gap 10 mmol/L; Blood Urea Nitrogen 17 mg/dL (7-17); Carbon Dioxide 26 mmol/L (22-30); Chloride 97 mmol/L (98-107); Glucose 281 mg/dL (74-99); Magnesium 1.7 mg/dL (1.6-2.3); Non-African American GFR(MDRD) >60 (>60 ml/min/1.73 sqM); Potassium 3.4 mmol/L (3.5-5.1); Sodium 133 mmol/L (137-145); Total Bilirubin 1.6 mg/dL (0.2-1.3); Total Protein 6.1 g/dL (6.3-8.2)
--- NOTE | 2016-06-07 12:29 | XR ---
EXAMINATION TYPE: XR chest 2V DATE OF EXAM: 06/07/2016 12:23 PM COMPARISON: 05/20/2016 TECHNIQUE: PA and lateral views submitted. HISTORY: Pain FINDINGS: There are chronic bilateral rib cage deformities. Subsegmental areas of consolidation are more typica l of atelectasis. There does appear to be soft tissue emphysema overlying right chest. Mediport catheter stable. No pneumothorax. No overt failure. Heart size stable. Degenerative change of the spine. IMPRESSION: 1. Chronic appearing rib cage deformities with subsegmental changes involving the lungs greater on th e right more typical of atelectasis than pneumonia correlate clinically. 2. No appears to be air within the soft tissues overlying the right lower chest correlate for subcuta neous emphysema. Could be postprocedural or postinfectious. Correlate clinically
[2016-06-07 12:31] LABS: INR 1.4 (<1.1); Prothrombin Time 13.7 sec (9.0-12.0)
[2016-06-07 12:37] LABS: Creatine Kinase 288 U/L (30-135)
[2016-06-07 12:49] LABS: Partial Thromboplastin Time 80.3 sec (22.0-30.0)
[2016-06-07 12:50] LABS: Creatine Kinase MB <0.2 ng/mL (0.0-2.4); Troponin I <0.012 ng/mL (0.000-0.034)
[2016-06-07 12:56] VITALS: RESP 18; TEMP 97.7
--- NOTE | 2016-06-07 13:40 | CT ---
EXAMINATION TYPE: CT brain w con DATE OF EXAM: 06/07/2016 1:29 PM COMPARISON: NONE HISTORY: Patient complains of dizziness and weakness. Patient has a history of colon CA. CT DLP: 1073 mGycm Automated exposure control for dose reduction was used. CONTRAST: CT scan of the head is performed with IV Contrast, patient injected with 100 mL of Omnipaque 300. FINDINGS: There is no abnormal enhancing mass or midline shift identified. There is ventricular and sulcal prom inence consistent with diffuse cerebral atrophy. The globes are intact and the visualized sinuses ar e clear. No suspicious opacification mastoid air cells is present. Hyperostosis frontalis is seen. IMPRESSION: No suspicious enhancing intraparenchymal mass to suggest metastatic malignancy.
[2016-06-07 14:29] LABS: Appearance,Urine Clear (Clear); Bilirubin,Urine 1+ (Negative); Glucose,Urine (UA) Negative (Negative); Ketones,Urine Negative (Negative); Leukocyte Esterase,Urine Negative (Negative); Mucus,Urine Rare /hpf; Nitrite,Urine Negative (Negative); Particle Count 12754; Protein,Urine 1+ (Negative); UA Billing (MACRO vs. MICRO) MICRO; WBC,Urine 4 /hpf (0-5)
[2016-06-07 14:34] LABS: Specific Gravity,Urine >1.050 (1.001-1.035)
--- NOTE | 2016-06-07 16:54 | CT ---
EXAMINATION TYPE: CT chest wo con DATE OF EXAM: 06/07/2016 4:45 PM COMPARISON: CTA chest December 08, 2015. HISTORY: Patient complains of subcutaneous emphysema near port. Abnormal chest x-ray, chest pain. CT DLP: 448 mGycm. Automated Exposure Control for Dose Reduction was Utilized. TECHNIQUE: CT scan of the thorax is performed without IV contrast. FINDINGS: LUNGS: There is small to tiny right pleural fusion or fluid collection. There is new linear atelectat ic change in the right lower lobe. There is new linear atelectatic change in the left lung base near diaphragm. No suspicious parenchymal nodule or mass is present bilaterally. No pneumothorax is seen b ilaterally. MEDIASTINUM: Lack of IV contrast is noted to limit evaluation for mediastinal and especially hilar ad enopathy. There are no definitive greater than 1 cm hilar or mediastinal lymph nodes. No cardiomega ly or pericardial effusion is seen. OTHER: Multiple healing or healed bilateral rib fracture deformities are identified new from prior e xam suspected subacute or chronic in age involving multiple anterolateral left upper to mid ribs and multiple anterolateral right upper to mid ribs . There is redemonstration of right subclavian Mediport catheter with tip in SVC. Extensive subcutaneou s gas is seen near level of charles long lateral aspect extending superiorly and inferiorly as well as in the deeper tissue of uncertain etiology. IMPRESSION: 1. New small right pleural effusion. New right greater than left bibasilar linear atelectasis. 2. Extensive subcutaneous gas or emphysema near right chest wall Mediport is noted etiology uncertain perhaps iatrogenic. 3. Multiple bilateral subacute or chronic anterolateral rib fractures upper to mid ribs new from prio r CT study. Clinical correlation for interval trauma advised.
[2016-06-07 17:11] VITALS: BP 111/59; PULSE 72
== END 2016-06-07 17:00 | disposition home or self-care (01) ==
LOC: EC 11:41
DX: R53.1 Weakness (principal); R74.8 Abnormal levels of other serum enzymes; C18.9 Malignant neoplasm of colon, unspecified; C78.7 Secondary malignant neoplasm of liver and intrahepatic bile duct; R94.31 Abnormal electrocardiogram [ECG] [EKG]; E11.9 Type 2 diabetes mellitus without complications; I10 Essential (primary) hypertension; E07.9 Disorder of thyroid, unspecified; Z85.820 Personal history of malignant melanoma of skin; Z86.711 Personal history of pulmonary embolism; Z79.4 Long term (current) use of insulin; Z79.01 Long term (current) use of anticoagulants; Z79.899 Other long term (current) drug therapy
CPT/HCPCS: 99285; 96374; 96361; 36415; 93005; 80053; 82550; 82553; 83735; 84484; 85025; 85610; 85730; 81001; 71020; 70460; 71250; J2405; Q9967

== ENCOUNTER 2016-07-07 15:31 | Inpatient (IN) | payer BC ==
[2016-07-07] MEDS ORDERED: SODIUM CHLORIDE 0.9% 1,000 ML IV STA ×3 (15:36→21:18)
--- NOTE | 2016-07-07 15:36 | ED ---
General Adult HPI - General Stated complaint: WEAKNESS Time Seen by Provider: 07/07/16 15:36 Source: RN notes reviewed, old records reviewed - History of Present Illness Initial comments: This is a 60-year-old female who presents presents here today for evaluation of weakness. Severe weakness decreased ability to function in daily tasks. Patient has no chest pain or source of breath no fevers. Patient does suffer from significant cancer Berdan, currently going through treatment. No fevers. - Related Data Home Medications Medication Instructions Recorded Confirmed Insulin Glargine,Hum.rec.anlog 30 units SQ HS 11/11/13 07/07/16 [Lantus Solostar] INSULIN LISPRO (humaLOG) [humaLOG See Protocol SQ AC-TID 12/08/15 07/07/16 (formulary)] Amitriptyline HCl [Elavil] 25 mg PO HS 02/18/16 07/07/16 Gabapentin [Neurontin] 100 mg PO TID 02/18/16 07/07/16 Levothyroxine Sodium [Synthroid] 175 mcg PO DAILY 05/20/16 07/07/16 Ondansetron HCl [Zofran] 4 mg PO Q6H PRN 05/20/16 07/07/16 ALPRAZolam [Xanax] 0.5 mg PO HS 07/07/16 07/07/16 Dronabinol [Marinol] 5 mg PO BID PRN 07/07/16 07/07/16 Hydrochlorothiazide [Hydrodiuril] 12.5 mg PO DAILY 07/07/16 07/07/16 Rivaroxaban [Xarelto] 20 mg PO DAILY 07/07/16 07/07/16 Allergies Allergy/AdvReac Type Severity Reaction Status Date / Time No Known Allergies Allergy Verified 07/07/16 15:55 Review of Systems ROS Statement: Those systems with pertinent positive or pertinent negative responses have been documented in the HPI. ROS Other: All systems not noted in ROS Statement are negative. Past Medical History Past Medical History: Cancer, Diabetes Mellitus, GERD/Reflux, Hyperlipidemia, Hypertension, Liver Disease, Pulmonary Embolus (PE), Skin Disorder, Thyroid Disorder Additional Past Medical History / Comment(s): heart murmer, colon cancer, liver cancer, MELANOMA, liver lesions on CT scan 09/10 History of Any Multi-Drug Resistant Organisms: ESBL Date of last positivie culture/infection: 05/20/16 MDRO Source:: E.COLI URINE Past Surgical History: Bowel Resection, Cholecystectomy, Hysterectomy Additional Past Surgical History / Comment(s): BOWEL RESECTION 10/2013- colostomy /later reversal. bilateral oopherectomy, exploratory laperotomy, SURG RT THIGH D/T MELANOMA, exploratory laparotomy with sigmoidectomy, loop colostomy with colostomy reversal, resection of melanoma, total abdominal hysterectomy with bilateral salpingo-oophorectomy, EGD and colonoscopy 2014, necrotizing fasciitis of the right labia post 9 surgical interventions an initial wound greater than 45 cm Past Anesthesia/Blood Transfusion Reactions: No Reported Reaction Past Psychological History: Anxiety Additional Psychological History / Comment(s): SEASONAL AFFECTIVE DISORDER Smoking Status: Never smoker Past Alcohol Use History: None Reported Past Drug Use History: None Reported - Past Family History Mother Family Medical History: Diabetes Mellitus, Hypertension (Mother is 87-year-old has history of diabetes and hypertension.) Father Family Medical History: Renal Disease (Father at age of 74 from acute renal failure.) Brother(s) Family Medical History: No Reported History (Patient has 2 brothers no major medical problems.) Sister(s) Family Medical History: Cancer, Diabetes Mellitus (Patient has 2 sisters one with diabetes mellitus type 2 and has never ) Additional Family Medical History / Comment(s): Colon General Exam General appearance: alert, in no apparent distress Head exam: Present: atraumatic, normocephalic, normal inspection Eye exam: Present: normal appearance, PERRL, EOMI. Absent: scleral icterus, conjunctival injection, periorbital swelling ENT exam: Present: normal exam, mucous membranes moist Neck exam: Present: normal inspection. Absent: tenderness, meningismus, lymphadenopathy Respiratory exam: Present: normal lung sounds bilaterally. Absent: respiratory distress, wheezes, rales, rhonchi, stridor Cardiovascular Exam: Present: regular rate, normal rhythm, normal heart sounds. Absent: systolic murmur, diastolic murmur, rubs, gallop, clicks GI/Abdominal exam: Present: soft, normal bowel sounds. Absent: distended, tenderness, guarding, rebound, rigid Extremities exam: Present: normal inspection, full ROM, normal capillary refill. Absent: tenderness, pedal edema, joint swelling, calf tenderness Back exam: Present: normal inspection Neurological exam: Present: alert, oriented X3, CN II-XII intact Psychiatric exam: Present: normal affect, normal mood Skin exam: Present: warm, dry, intact, normal color. Absent: rash Course Vital Signs 07/07/16 15:33 Temperature 97 F L Pulse Rate 94 Respiratory 18 Rate Blood Pressure 114/59 O2 Sat by Pulse 96 Oximetry - Reevaluation(s) Reevaluation #1: 07/07/16 17:15 Patient has no clinical improvement this time, still feels weak states her mouth is dry EKG Findings - EKG Comments: EKG Findings:: EKG shows sinus tachycardia rate 101, OH 140, QRS 86, QTC 438 Medical Decision Making - Medical Decision Making 60 female the ER for evaluation of severe weakness. Patient severely dehydrated , patient will be admitted for IV fluid resuscitation, patient does suffer from significant cancer burden, at this time denies chest pain, denies about pain, denies any pain no recent fevers - Lab Data Result diagrams: 07/07/16 16:07 07/07/16 16:07 Lab Results 07/07/16 07/07/16 07/07/16 Range/Units 16:07 16:07 16:07 WBC 13.4 H (3.8-10.6) k/uL RBC 3.68 L (3.80-5.40) m/uL Hgb 10.6 L (11.4-16.0) gm/dL Hct 35.0 (34.0-46.0) % MCV 95.3 D (80.0-100.0) fL MCH 28.7 (25.0-35.0) pg MCHC 30.1 L (31.0-37.0) g/dL RDW 19.2 H (11.5-15.5) % Plt Count 193 (150-450) k/uL PT 17.3 H (9.0-12.0) sec INR 1.8 (<1.1) APTT 28.3 (22.0-30.0) sec Sodium 135 L (137-145) mmol/L Potassium 4.5 (3.5-5.1) mmol/L Chloride 100 (98-107) mmol/L Carbon Dioxide 18 L (22-30) mmol/L Anion Gap 17 mmol/L BUN 23 H (7-17) mg/dL Creatinine 1.20 H (0.52-1.04) mg/dL Est GFR (MDRD) Af Amer 55 (>60 ml/min/1.73 sqM) Est GFR (MDRD) Non-Af 46 (>60 ml/min/1.73 sqM) Glucose 90 (74-99) mg/dL Plasma Lactic Acid Sacha (0.7-2.0) mmol/L Calcium 8.1 L (8.4-10.2) mg/dL Phosphorus 5.0 H (2.5-4.5) mg/dL Magnesium 2.0 (1.6-2.3) mg/dL Total Bilirubin 6.1 H (0.2-1.3) mg/dL AST 275 H (14-36) U/L ALT 71 H (9-52) U/L Alkaline Phosphatase 2047 H (38-126) U/L Total Creatine Kinase (30-135) U/L CK-MB (CK-2) (0.0-2.4) ng/mL CK-MB (CK-2) Rel Index Troponin I (0.000-0.034) ng/mL Total Protein 6.6 (6.3-8.2) g/dL Albumin 2.4 L (3.5-5.0) g/dL 07/07/16 07/07/16 Range/Units 16:07 16:07 WBC (3.8-10.6) k/uL RBC (3.80-5.40) m/uL Hgb (11.4-16.0) gm/dL Hct (34.0-46.0) % MCV (80.0-100.0) fL MCH (25.0-35.0) pg MCHC (31.0-37.0) g/dL RDW (11.5-15.5) % Plt Count (150-450) k/uL PT (9.0-12.0) sec INR (<1.1) APTT (22.0-30.0) sec Sodium (137-145) mmol/L Potassium (3.5-5.1) mmol/L Chloride (98-107) mmol/L Carbon Dioxide (22-30) mmol/L Anion Gap mmol/L BUN (7-17) mg/dL Creatinine (0.52-1.04) mg/dL Est GFR (MDRD) Af Amer (>60 ml/min/1.73 sqM) Est GFR (MDRD) Non-Af (>60 ml/min/1.73 sqM) Glucose (74-99) mg/dL Plasma Lactic Acid [place] 7.2 H* (0.7-2.0) mmol/L Calcium (8.4-10.2) mg/dL Phosphorus (2.5-4.5) mg/dL Magnesium (1.6-2.3) mg/dL Total Bilirubin (0.2-1.3) mg/dL AST (14-36) U/L ALT (9-52) U/L Alkaline Phosphatase (38-126) U/L Total Creatine Kinase 148 H (30-135) U/L CK-MB (CK-2) 0.4 (0.0-2.4) ng/mL CK-MB (CK-2) Rel Index 0.3 Troponin I <0.012 (0.000-0.034) ng/mL Total Protein (6.3-8.2) g/dL Albumin (3.5-5.0) g/dL Disposition Clinical Impression: Weakness, Dehydration, Lactic acidosis Disposition: ADMITTED IP TO THIS HOSP Condition: Fair Referrals: Haris Mcghee MD [Primary Care Provider] - 1-2 days
[2016-07-07 16:37] LABS: INR 1.8 (<1.1); Partial Thromboplastin Time 28.3 sec (22.0-30.0); Prothrombin Time 17.3 sec (9.0-12.0)
[2016-07-07 16:49] LABS: Anisocytosis Slight; CH 29.5; CHCM 31.1; HDW 2.55; HGB 10.6 gm/dL (11.4-16.0); Hypochromasia Slight; MCH 28.7 pg (25.0-35.0); MCHC 30.1 g/dL (31.0-37.0); Macrocytosis Slight; Mean Platelet Volume 7.9; RBC 3.68 m/uL (3.80-5.40); RDW 19.2 % (11.5-15.5); WBC 13.4 k/uL (3.8-10.6); WBC (Perox) 12.71
[2016-07-07 16:53] LABS: ALT 71 U/L (9-52); AST 275 U/L (14-36); Anion Gap 17 mmol/L; Blood Urea Nitrogen 23 mg/dL (7-17); Calcium 8.1 mg/dL (8.4-10.2); Carbon Dioxide 18 mmol/L (22-30); Chloride 100 mmol/L (98-107); Creatine Kinase 148 U/L (30-135); Glucose 90 mg/dL (74-99); MCV 95.3 fL (80.0-100.0); Non-African American GFR(MDRD) 46 (>60 ml/min/1.73 sqM); Potassium 4.5 mmol/L (3.5-5.1); Sodium 135 mmol/L (137-145); Total Bilirubin 6.1 mg/dL (0.2-1.3); Total Protein 6.6 g/dL (6.3-8.2)
[2016-07-07 17:03] LABS: Alkaline Phosphatase 2047 U/L (38-126)
[2016-07-07 17:04] LABS: Creatine Kinase MB 0.4 ng/mL (0.0-2.4); Troponin I <0.012 ng/mL (0.000-0.034)
[2016-07-07] MEDS ORDERED: SODIUM CHLORIDE 0.9% 1,000 ML IV ONE (17:12)
[2016-07-07] MEDS ORDERED: SODIUM CHLORIDE 0.9% 500 ML IV STA (17:14)
[2016-07-07 17:23] LABS: Add Differential Manual Differential
[2016-07-07 17:24] LABS: Nucleated Red Blood Cells 0 /100 WBC (0-0); Total Cells Counted 100
[2016-07-07 17:26] LABS: Manual Review Performed; Polychromasia Present
--- NOTE | 2016-07-07 17:40 | XR ---
EXAMINATION TYPE: XR chest 2V DATE OF EXAM: 07/07/2016 5:30 PM COMPARISON: 06/07/2016 HISTORY: Weakness and pain TECHNIQUE: Frontal and lateral views of the chest are obtained. FINDINGS: There is elevated right diaphragm and linear density in the right lower lobe. There are mu ltiple old left-sided healed rib fractures. There is a right central venous catheter with the tip in the superior vena cava. There are chest leads. There is no heart failure. Left lung is clear. IMPRESSION: Bilateral multiple old rib fractures. There is increasing atelectasis in the right lower lobe compared to last exam. No heart failure. Normal heart.
[2016-07-07 19:22] LABS: Reflex Lactic Acid Y
[2016-07-07 21:06] LABS: Appearance,Urine Cloudy (Clear); Bilirubin,Urine 2+ (Negative); Glucose,Urine (UA) Negative (Negative); Ketones,Urine Negative (Negative); Leukocyte Esterase,Urine Small (Negative); Mucus,Urine Rare /hpf; Nitrite,Urine Positive (Negative); PH, Urine 5.5 (5.0-8.0); Particle Count 15616; Protein,Urine Trace (Negative); RBC,Urine 1 /hpf (0-5); Specific Gravity,Urine 1.015 (1.001-1.035); Squamous Epithelial Cell,Urine <1 /hpf (0-4); UA Billing (MACRO vs. MICRO) MICRO; WBC,Urine 11 /hpf (0-5)
[2016-07-07] MEDS ORDERED: PIPERACILLIN-TAZOBACTAM 3.375 GM in DEXTROSE/WATER 1 50ML.BAG IVPB STA (21:19)
--- NOTE | 2016-07-07 21:24 | ED ---
Medical Decision Making - Medical Decision Making Patient reevaluated by myself, Dr. Kurtz. Patient resting comfortably in bed. Patient does meet criteria for septic shock. Case was discussed in detail with Dr. Membreno who does want patient to go to the ICU. He does recommend Zosyn and Levaquin. Consult for Dr. Moser. Patient and family were updated. Dr. Moser has been paged. - Lab Data Result diagrams: 07/07/16 16:07 07/07/16 16:07 Lab Results 07/07/16 07/07/16 07/07/16 Range/Units 16:07 16:07 16:07 WBC 13.4 H (3.8-10.6) k/uL RBC 3.68 L (3.80-5.40) m/uL Hgb 10.6 L (11.4-16.0) gm/dL Hct 35.0 (34.0-46.0) % MCV 95.3 D (80.0-100.0) fL MCH 28.7 (25.0-35.0) pg MCHC 30.1 L (31.0-37.0) g/dL RDW 19.2 H (11.5-15.5) % Plt Count 193 (150-450) k/uL Neutrophils % (Manual) 76.0 % Band Neutrophils % 11.0 % Lymphocytes % (Manual) 10.0 % Monocytes % (Manual) 3.0 % Neutrophils # (Manual) 11.7 H (1.3-7.7) k/uL Lymphocytes # (Manual) 1.3 (1.0-4.8) k/uL Monocytes # (Manual) 0.4 (0-1.0) k/uL Nucleated RBCs 0 (0-0) /100 WBC Manual Slide Review Performed Polychromasia Present Hypochromasia Slight Anisocytosis Slight Macrocytosis Slight PT 17.3 H (9.0-12.0) sec INR 1.8 (<1.1) APTT 28.3 (22.0-30.0) sec Sodium 135 L (137-145) mmol/L Potassium 4.5 (3.5-5.1) mmol/L Chloride 100 (98-107) mmol/L Carbon Dioxide 18 L (22-30) mmol/L Anion Gap 17 mmol/L BUN 23 H (7-17) mg/dL Creatinine 1.20 H (0.52-1.04) mg/dL Est GFR (MDRD) Af Amer 55 (>60 ml/min/1.73 sqM) Est GFR (MDRD) Non-Af 46 (>60 ml/min/1.73 sqM) Glucose 90 (74-99) mg/dL Plasma Lactic Acid Sacha (0.7-2.0) mmol/L Calcium 8.1 L (8.4-10.2) mg/dL Phosphorus 5.0 H (2.5-4.5) mg/dL Magnesium 2.0 (1.6-2.3) mg/dL Total Bilirubin 6.1 H (0.2-1.3) mg/dL AST 275 H (14-36) U/L ALT 71 H (9-52) U/L Alkaline Phosphatase 2047 H (38-126) U/L Total Creatine Kinase (30-135) U/L CK-MB (CK-2) (0.0-2.4) ng/mL CK-MB (CK-2) Rel Index Troponin I (0.000-0.034) ng/mL Total Protein 6.6 (6.3-8.2) g/dL Albumin 2.4 L (3.5-5.0) g/dL Urine Color Urine Appearance (Clear) Urine pH (5.0-8.0) Ur Specific [place] (1.001-1.035) Urine Protein (Negative) Urine Glucose (UA) (Negative) Urine Ketones (Negative) Urine Blood (Negative) Urine Nitrite (Negative) Urine Bilirubin (Negative) Urine Urobilinogen (<2.0) mg/dL Ur Leukocyte Esterase (Negative) Urine RBC (0-5) /hpf Urine WBC (0-5) /hpf Ur Squamous Epith Cells (0-4) /hpf Hyaline Casts (0-2) /lpf Urine Mucus (None) /hpf 07/07/16 07/07/16 07/07/16 Range/Units 16:07 16:07 20:00 WBC (3.8-10.6) k/uL RBC (3.80-5.40) m/uL Hgb (11.4-16.0) gm/dL Hct (34.0-46.0) % MCV (80.0-100.0) fL MCH (25.0-35.0) pg MCHC (31.0-37.0) g/dL RDW (11.5-15.5) % Plt Count (150-450) k/uL Neutrophils % (Manual) % Band Neutrophils % % Lymphocytes % (Manual) % Monocytes % (Manual) % Neutrophils # (Manual) (1.3-7.7) k/uL Lymphocytes # (Manual) (1.0-4.8) k/uL Monocytes # (Manual) (0-1.0) k/uL Nucleated RBCs (0-0) /100 WBC Manual Slide Review Polychromasia Hypochromasia Anisocytosis Macrocytosis PT (9.0-12.0) sec INR (<1.1) APTT (22.0-30.0) sec Sodium (137-145) mmol/L Potassium (3.5-5.1) mmol/L Chloride (98-107) mmol/L Carbon Dioxide (22-30) mmol/L Anion Gap mmol/L BUN (7-17) mg/dL Creatinine (0.52-1.04) mg/dL Est GFR (MDRD) Af Amer (>60 ml/min/1.73 sqM) Est GFR (MDRD) Non-Af (>60 ml/min/1.73 sqM) Glucose (74-99) mg/dL Plasma Lactic Acid Sacha 7.2 H* 5.4 H* (0.7-2.0) mmol/L Calcium (8.4-10.2) mg/dL Phosphorus (2.5-4.5) mg/dL Magnesium (1.6-2.3) mg/dL Total Bilirubin (0.2-1.3) mg/dL AST (14-36) U/L ALT (9-52) U/L Alkaline Phosphatase (38-126) U/L Total Creatine Kinase 148 H (30-135) U/L CK-MB (CK-2) 0.4 (0.0-2.4) ng/mL CK-MB (CK-2) Rel Index 0.3 Troponin I <0.012 (0.000-0.034) ng/mL Total Protein (6.3-8.2) g/dL Albumin (3.5-5.0) g/dL Urine Color Urine Appearance (Clear) Urine pH (5.0-8.0) Ur Specific [place] (1.001-1.035) Urine Protein (Negative) Urine Glucose (UA) (Negative) Urine Ketones (Negative) Urine Blood (Negative) Urine Nitrite (Negative) Urine Bilirubin (Negative) Urine Urobilinogen (<2.0) mg/dL Ur Leukocyte Esterase (Negative) Urine RBC (0-5) /hpf Urine WBC (0-5) /hpf Ur Squamous Epith Cells (0-4) /hpf Hyaline Casts (0-2) /lpf Urine Mucus (None) /hpf 07/07/16 Range/Units 20:50 WBC (3.8-10.6) k/uL RBC (3.80-5.40) m/uL Hgb (11.4-16.0) gm/dL Hct (34.0-46.0) % MCV (80.0-100.0) fL MCH (25.0-35.0) pg MCHC (31.0-37.0) g/dL RDW (11.5-15.5) % Plt Count (150-450) k/uL Neutrophils % (Manual) % Band Neutrophils % % Lymphocytes % (Manual) % Monocytes % (Manual) % Neutrophils # (Manual) (1.3-7.7) k/uL Lymphocytes # (Manual) (1.0-4.8) k/uL Monocytes # (Manual) (0-1.0) k/uL Nucleated RBCs (0-0) /100 WBC Manual Slide Review Polychromasia Hypochromasia Anisocytosis Macrocytosis PT (9.0-12.0) sec INR (<1.1) APTT (22.0-30.0) sec Sodium (137-145) mmol/L Potassium (3.5-5.1) mmol/L Chloride (98-107) mmol/L Carbon Dioxide (22-30) mmol/L Anion Gap mmol/L BUN (7-17) mg/dL Creatinine (0.52-1.04) mg/dL Est GFR (MDRD) Af Amer (>60 ml/min/1.73 sqM) Est GFR (MDRD) Non-Af (>60 ml/min/1.73 sqM) Glucose (74-99) mg/dL Plasma Lactic Acid Sacha (0.7-2.0) mmol/L Calcium (8.4-10.2) mg/dL Phosphorus (2.5-4.5) mg/dL Magnesium (1.6-2.3) mg/dL Total Bilirubin (0.2-1.3) mg/dL AST (14-36) U/L ALT (9-52) U/L Alkaline Phosphatase (38-126) U/L Total Creatine Kinase (30-135) U/L CK-MB (CK-2) (0.0-2.4) ng/mL CK-MB (CK-2) Rel Index Troponin I (0.000-0.034) ng/mL Total Protein (6.3-8.2) g/dL Albumin (3.5-5.0) g/dL Urine Color [place] Urine Appearance Cloudy H (Clear) Urine pH 5.5 (5.0-8.0) Ur Specific [place] 1.015 (1.001-1.035) Urine Protein Trace H (Negative) Urine Glucose (UA) Negative (Negative) Urine Ketones Negative (Negative) Urine Blood Small H (Negative) Urine Nitrite Positive H (Negative) Urine Bilirubin 2+ H (Negative) Urine Urobilinogen 8.0 (<2.0) mg/dL Ur Leukocyte Esterase Small H (Negative) Urine RBC 1 (0-5) /hpf Urine WBC 11 H (0-5) /hpf Ur Squamous Epith Cells <1 (0-4) /hpf Hyaline Casts 1 (0-2) /lpf Urine Mucus Rare H (None) /hpf Disposition Clinical Impression: Weakness, Dehydration, Lactic acidosis, UTI (urinary tract infection), Septic shock Disposition: ADMITTED IP TO THIS [facility] Condition: Serious Referrals: Haris Mcghee MD [Primary Care Provider] - 1-2 days Procedures - Sepsis Sepsis Focused Exam #1 Time Sepsis Criteria Met: 21:15 Sepsis Focused Exam Date: 07/07/16 Sepsis Focused Exam Time: 21:21 Sepsis Focused Exam Complete: Yes Vital Signs & RN Notes Reviewed: Yes Capillary Refill: < 2 Seconds: Fingers, Toes Peripheral Pulses: Normal: Radial (R), Radial (L) Skin Color: Jaundice Respiratory Exam: normal lung sounds Cardiovascular Exam: regular rate, normal rhythm
[2016-07-07] MEDS: LEVOFLOXACIN 750MG-D5W PMX 750 MG in DEXTROSE/WATER 1 150ML.BAG IVPB SCH (21:38)
[2016-07-07] MEDS ORDERED: ALPRAZolam 0.5 MG TAB PO STA (23:25)
[2016-07-07] MEDS ORDERED: GABAPENTIN 100 MG CAP PO STA (23:29)
[2016-07-08 06:15] LABS: Glucose,Whole Blood 73 mg/dL (75-99)
[2016-07-08] MEDS ORDERED: LEVOTHYROXINE 100 MCG TAB PO SCH (06:30)
[2016-07-08] MEDS ORDERED: LEVOTHYROXINE 75 MCG TAB PO SCH (06:30)
[2016-07-08] MEDS: GABAPENTIN 100 MG CAP PO SCH ×3 (07:03→15:31)
[2016-07-08] MEDS: AMITRIPTYLINE HCL 25 MG TAB PO SCH (07:03)
[2016-07-08] MEDS ORDERED: RIVAROXABAN 10 MG TAB PO SCH (09:00)
[2016-07-08] MEDS: PIPERACILLIN-TAZOBACTAM 3.375 GM in DEXTROSE/WATER 1 50ML.BAG IVPB SCH ×2 (09:42→15:31)
[2016-07-08] MEDS ORDERED: ONDANSETRON 4 MG TAB PO PRN (09:46)
[2016-07-08] MEDS ORDERED: HYDROmorphone 1 MG/ML 1 ML SYRINGE IVP PRN (09:49)
[2016-07-08] MEDS ORDERED: diphenhydrAMINE 25 MG CAP PO PRN (10:23)
[2016-07-08] MEDS: DRONABINOL 2.5 MG CAP PO PRN (11:10)
[2016-07-08 12:08] LABS: Glucose,Whole Blood 85 mg/dL (75-99)
[2016-07-08] MEDS: INSULIN LISPRO (humaLOG) 300 UNIT/3 ML VIAL SQ SCH ×2 (13:46→17:32)
--- NOTE | 2016-07-08 14:22 | US ---
EXAMINATION TYPE: US abdomen limited DATE OF EXAM: 07/08/2016 2:06 PM COMPARISON: NONE CLINICAL HISTORY: ascites. ABD distention Moderate amount of ascites present, largest pocket right flank= 8.6 cm IMPRESSION: There is significant ascites fluid in all 4 quadrants. The largest pocket measures 8.6 c m on the right side.
[2016-07-08] MEDS ORDERED: GABAPENTIN 100 MG CAP PO SCH (16:00)
[2016-07-08] MEDS ORDERED: MENTHOL (NICE) LOZENGE MUCOUS MEM PRN (18:43)
--- NOTE | 2016-07-08 19:13 | CONS ---
DATE OF CONSULTATION: This is a lady with a history of colon cancer. She had colon resection by Dr. Coley a couple of years back. Subsequent to that, in August of last year she was discovered to have liver mets. In addition to all of that, the patient apparently developed necrotizing fasciitis and had that treated. Her primary doctor is Dr. Mcghee. Here in the hospital she sees Dr. Membreno. She also sees Dr. Coley and also Dr. Elliott. She has not had any recent treatment for her metastatic colon cancer. The patient came in with primarily weakness. She was profoundly weak, was not really able to get about. She was admitted to the hospital for primarily weakness and metastatic colon cancer. Her home medications include insulin, Elavil, Neurontin, Synthroid, Zofran, Xanax, Marinol, HydroDIURIL Xarelto. ALLERGIES: Denied. Past medical history includes diabetes, colon cancer metastatic to the liver, gastroesophageal reflux disease, hyperlipidemia, hypertension, pulmonary embolism, hypothyroidism, melanoma. Previous surgical history includes a bowel resection, cholecystectomy, hysterectomy. A bowel resection by Dr. Coley was done in 2013. She had a colostomy with reversal. Other surgical history includes bilateral oophorectomy, exploratory laparotomy, removal of thigh melanoma and surgery in her right groin, right inguinal, right labial area for necrotizing fasciitis. Social history is negative for tobacco use. No alcohol use. No illicit drug use. Family history is positive for diabetes, hypertension, chronic kidney disease. REVIEW OF SYSTEMS: CONSTITUTIONAL: Weakness. NEUROLOGICAL: Negative. HEENT: Negative. CARDIOVASCULAR: Negative. PULMONARY: Mild shortness of breath. GI: Increasing abdominal girth. : Negative. RHEUMATOLOGICAL/IMMUNOLOGIC: Negative. ENDOCRINOLOGIC: Negative. DERMATOLOGIC: Negative. Current vital signs include temperature 96.3, heart rate 90, respiratory rate 16, blood pressure 123/64, mean 83, room air saturation 97%. Appears in no acute distress. HEENT examination is grossly unremarkable. Mucous membranes are moist. No oral lesions. Neck is supple. Full range of motion. No adenopathy or thyromegaly. Cardiovascular examination reveals regular rhythm and rate. Heart rate about 90. No murmur. S1, S2 normal. Lungs are relatively clear. She does not take real deep breaths I suspect because of her increasing abdominal girth. No crackles. No wheezes. ABDOMEN: Distended. Mild tenderness on palpation. She may have a fluid wave. EXTREMITIES: Intact. There is some slight edema. Skin without rash. NEUROLOGICAL: Nonfocal. Chest x-ray shows small lung volumes. There is some mild right-sided atelectasis. Labs are reviewed. White count 13.4, hemoglobin 10.6, hematocrit 35.0, platelet count 193,000. PT 17.3, INR 1.8, PTT 28.3. Sodium 135, potassium 4.5, chloride 100, CO2 of 18. Anion gap is 17, BUN and creatinine were 23 and 1.20. Lactic acid was 5.4 down to 3.8. Calcium 8.1, phosphorus 5.0. Magnesium 2, AST 275, ALT 71, alk phos is 2047. CK 148, albumin 2.4. Urine is cloudy. There is trace protein, small blood, positive nitrite, 2+ bilirubin, small leukocyte esterase, 1RBC, 11 WBCs. I do not see any bacteria. ASSESSMENT: 1. Weakness, likely related to underlying malignancy which is colon cancer metastatic to the liver. 2. Increasing abdominal girth with some diffuse abdominal pain and mild respiratory impairment, may be related to underlying ascites from her cancer. 3. History of necrotizing fasciitis with multiple previous surgeries. 4. Status post colectomy with colostomy and subsequent reversal for colon cancer in 2013. 5. History of melanoma. 6. Diabetes. 7. Gastroesophageal reflux disease. 8. Hyperlipidemia. 9. Hypertension. 10. History of pulmonary embolism. 11. Hypothyroidism. PLAN: Overall prognosis is poor but the patient should have an ultrasound to see whether or not this is ascites. Paracentesis abdominis would be helpful in terms of relieving the patient's distention, abdominal discomfort and improve her respiratory status. If there ascites it is likely malignant in nature. Additional recommendations and suggestions are forthcoming. Prognosis is guarded. I will go ahead and order the ultrasound.
[2016-07-08] MEDS ORDERED: AMITRIPTYLINE HCL 25 MG TAB ONE (21:00)
[2016-07-08] MEDS ORDERED: GABAPENTIN 100 MG CAP ONE (21:00)
[2016-07-08] MEDS ORDERED: ALPRAZolam 0.5 MG TAB PO SCH (21:00)
[2016-07-08] MEDS ORDERED: INSULIN GLARGINE 100 UNIT/ML 10 ML VIAL SQ SCH (21:00)
[2016-07-08] MEDS ORDERED: INSULIN GLARGINE 100 UNIT/ML 10 ML VIAL SQ ONE (21:00)
[2016-07-08] MEDS ORDERED: AMITRIPTYLINE HCL 25 MG TAB PO SCH (21:00)
[2016-07-08] MEDS ORDERED: ALPRAZolam 0.5 MG TAB ONE (21:00)
[2016-07-08 23:05] LABS: Glucose,Whole Blood 111 mg/dL (75-99)
[2016-07-09 01:31] VITALS: TEMP 96.3
[2016-07-09] MEDS: AMITRIPTYLINE HCL 25 MG TAB PO SCH (05:41)
[2016-07-09] MEDS: LEVOFLOXACIN 750MG-D5W PMX 750 MG in DEXTROSE/WATER 1 150ML.BAG IVPB SCH (05:43)
[2016-07-09] MEDS: PIPERACILLIN-TAZOBACTAM 3.375 GM in DEXTROSE/WATER 1 50ML.BAG IVPB SCH ×2 (05:43→08:00)
[2016-07-09] MEDS: GABAPENTIN 100 MG CAP PO SCH ×2 (05:43→08:00)
[2016-07-09 06:15] LABS: Glucose,Whole Blood 115 mg/dL (75-99)
[2016-07-09] MEDS ORDERED: LEVOTHYROXINE 100 MCG TAB PO SCH (06:30)
[2016-07-09] MEDS ORDERED: LEVOTHYROXINE 75 MCG TAB PO SCH (06:30)
[2016-07-09] MEDS ORDERED: RIVAROXABAN 10 MG TAB PO SCH (07:30)
[2016-07-09] MEDS: INSULIN LISPRO (humaLOG) 300 UNIT/3 ML VIAL SQ SCH (07:39)
[2016-07-09] MEDS: DRONABINOL 2.5 MG CAP PO PRN (08:01)
[2016-07-09 08:06] VITALS: BP 134/66; PULSE 83; RESP 16
--- NOTE | 2016-07-09 11:08 | P.CONS ---
History of Present Illness - Reason for Consult Consult date: 07/09/16 dehydration, metastatic malignancy Requesting physician: Kaz Stephens - Chief Complaint weakness - History of Present Illness Afsaneh is a very pleasant 60-year-old female patient of Dr. Elliott with a history of metastatic colon cancer diagnosed Nov 2013. Please refer to Dr. Eubanks's consult with the patient on 05/20/2016 for full details patient's malignancy as well as complicated course of care over the last several years. Patient developed necrotizing fasciitis in November 2015. Since that time patient has for the most part recovered but, she has not been able to receive treatment. She was going to try oral chemo but patient states that she has decided on comfort measures and is planning on being admitted to the hospice house tomorrow. Dr. Elliott agreed with patient's decision. Patient is currently laying in bed with family members at the bedside. Patient is denying any nausea, pain or need for the bathroom. Review of Systems All systems: negative Constitutional: Reports as per HPI Past Medical History Past Medical History: Cancer, Diabetes Mellitus, GERD/Reflux, Hyperlipidemia, Hypertension, Liver Disease, Pulmonary Embolus (PE), Skin Disorder, Thyroid Disorder Additional Past Medical History / Comment(s): heart murmer, colon cancer, liver cancer, MELANOMA, liver lesions on CT scan 09/10 History of Any Multi-Drug Resistant Organisms: ESBL Year Discovered:: 05/20/16 MDRO Source:: E.COLI URINE Past Surgical History: Bowel Resection, Cholecystectomy, Hysterectomy Additional Past Surgical History / Comment(s): BOWEL RESECTION 10/2013- colostomy /later reversal. bilateral oopherectomy, exploratory laperotomy, SURG RT THIGH D/T MELANOMA, exploratory laparotomy with sigmoidectomy, loop colostomy with colostomy reversal, resection of melanoma, total abdominal hysterectomy with bilateral salpingo-oophorectomy, EGD and colonoscopy 2014, necrotizing fasciitis of the right labia post 9 surgical interventions an initial wound greater than 45 cm Past Anesthesia/Blood Transfusion Reactions: No Reported Reaction Past Psychological History: Anxiety Additional Psychological History / Comment(s): SEASONAL AFFECTIVE DISORDER Smoking Status: Never smoker Past Alcohol Use History: None Reported Past Drug Use History: None Reported - Past Family History Mother Family Medical History: Diabetes Mellitus, Hypertension Father Family Medical History: Renal Disease Brother(s) Family Medical History: No Reported History Sister(s) Family Medical History: Cancer, Diabetes Mellitus Additional Family Medical History / Comment(s): Colon Medications and Allergies Home Medications Medication Instructions Recorded Confirmed Type INSULIN LISPRO (humaLOG) [humaLOG See Protocol SQ AC-TID 12/08/15 07/07/16 History (formulary)] Amitriptyline HCl [Elavil] 25 mg PO HS 02/18/16 07/07/16 History Gabapentin [Neurontin] 100 mg PO TID 02/18/16 07/07/16 History Levothyroxine Sodium [Synthroid] 175 mcg PO DAILY 05/20/16 07/07/16 History Ondansetron HCl [Zofran] 4 mg PO Q6H PRN 05/20/16 07/07/16 History ALPRAZolam [Xanax] 0.5 mg PO HS 07/07/16 07/07/16 History Dronabinol [Marinol] 5 mg PO BID PRN 07/07/16 07/07/16 History Rivaroxaban [Xarelto] 20 mg PO DAILY 07/07/16 07/07/16 History Allergies Allergy/AdvReac Type Severity Reaction Status Date / Time No Known Allergies Allergy Verified 07/07/16 15:55 Physical Exam Vitals: Vital Signs Temp Pulse Resp BP Pulse Ox 07/09/16 08:00 83 16 134/66 97 07/09/16 04:00 18 07/09/16 00:00 96.3 F L 97 18 125/59 94 L 07/08/16 20:00 96.8 F L 100 10 L 118/59 93 L 07/08/16 15:37 98 18 07/08/16 15:36 97 F L 98 18 117/67 91 L 07/08/16 11:16 92 16 123/64 95 07/08/16 11:10 16 Intake and Output 07/08/16 07/09/16 07/09/16 22:59 06:59 14:59 Output Total 300 Balance -300 Output: Urine 300 Other: Voiding Method Indwelling Catheter Indwelling Catheter Indwelling Catheter Weight 97.5 kg - Constitutional General appearance: cooperative, no acute distress, obese - EENT Eyes: scleral icterus ENT: hearing grossly normal - Cardiovascular Heart sounds: normal: S1, S2 - Gastrointestinal General gastrointestinal: distended - Integumentary Integumentary: jaundiced - Neurologic Neurologic: CNII-XII intact - Psychiatric Psychiatric: A&O x's 3, appropriate affect, intact judgment & insight Results CBC & Chem 7: 07/07/16 16:07 07/07/16 16:07 Labs: Abnormal Lab Results - Last 24 Hours (Table) 07/08/16 07/09/16 Range/Units 21:13 06:13 POC Glucose (mg/dL) 111 H 115 H (75-99) mg/dL Microbiology - Last 24 Hours (Table) 07/07/16 21:00 Blood Culture - Preliminary Blood No Growth after 24 hours US - abdomen: report reviewed Assessment and Plan (1) Adenocarcinoma of colon metastatic to liver Narrative/Plan: Patient has not received treatment for her malignancy since at least November 2015. Patient was more recently considering oral therapies but she has decided on comfort measures only. She states she has discussed this with her family and everyone is in agreement. Plans are for her to be admitted to hospice house tomorrow and she is going to go home today and spend Mother's Day with her family. She is okay from an oncology standpoint to be discharged when she has been cleared by attending and any other consulting physicians Status: Chronic
--- NOTE | 2016-07-09 14:54 | P.HPIM ---
History of Present Illness H&P Date: 07/08/16 Chief Complaint: Lactic acidosis/sepsis This is a 60-year-old female one of Dr. Mcghee with a previous medical history significant for hypertension and hypertensive cardiovascular disease, diabetes mellitus type 2, hyperthyroidism, melanoma, obesity, patient was diagnosed with colon cancer back in 2013 underwent partial colectomy has been under the surveillance screening with Dr. Solis when she was diagnosed with recurrence of her disease back in August 2015 after she had a computed tomographic scan that showed a liver metastatic case is ended up going for biopsy that confirmed the diagnosis of adenocarcinoma of the colon and subsequently underwent PET scan in 10/05/2015 and she had a port placed and did receive 4 cycles of chemotherapy in the form of Avastin, 5 floor uracil, and cisplatin, patient ended up seeing a rivet thrower at [facility] Dr. Barr, was supposed to remove half of the liver but because of the advanced nature of that metastatic disease and being closer to a blood vessel it was decided to send the patient for more chemotherapy before deciding on any surgical intervention, patient unfortunately developed to have a boil in her right labia back in November 2015 where she was found to have a severe diabetic ketoacidosis after she was admitted to the hospital and she was found to have a glucose of 800 was treated for that and she was found to have an elevated d- dimer for which she underwent CT angiography that showed bilateral pulmonary emboli was started on heparin drip at that time she was admitted to the intensive care unit at our institution and she was seen by pulmonary medicine as well as by oncology and she was complaining of increased pain in the left groin and she was diagnosed with necrotizing fasciitis subsequently she was seen by general surgery Dr. Felipe ended up going for surgery however because of her status she ended up getting transferred to [facility] for further care was intubated and she stayed there for about 2 weeks and [facility] to [facility] on the [place] for physical therapy rehabilitation and she was under my care at that point up until recently when she was discharged home, since she was followed by hematology oncology, unfortunately patient had progressed and ended up having multiple metastatic disease and a little to have a significant ascites in her abdomen and that she was brought into the emergency department by her family because of significant weakness and not able to do anything patient was jaundiced and developed to have a significant UTI at that time I had a long conversation with the patient and her family and she wanted to be enrolled in hospice at this point in time this was discussed fully with Dr. Elliott her oncologist and he was in agreement for the above plan. Review of Systems Constitutional: Reports anorexia, Reports fatigue, Reports lethargy, Reports malaise, Reports sweats, Reports weakness Eyes: denies blurred vision, denies bulging eye, denies decreased vision Ears: deny: decreased hearing Ears, nose, mouth and throat: Reports sore throat, Denies dysphagia, Denies neck lump, Denies swelling in throat Cardiovascular: Reports dyspnea on exertion, Reports edema, Reports high blood pressure, Reports rapid heart beat, Reports shortness of breath, Denies chest pain Respiratory: Reports congestion, Reports dyspnea, Denies sleep apnea, Denies wheezing Gastrointestinal: Reports abdominal pain, Reports bloating, Reports change in bowel habits, Reports constipation, Reports early satiety, Reports excessive gas , Reports jaundice, Reports loss of appetite, Reports nausea, Denies vomiting Genitourinary: Denies dysuria, Denies hematuria Menstruation: Reports postmenopausal Musculoskeletal: Denies myalgias Musculoskeletal: bilateral: ankle swelling, absent: ankle pain, ankle stiffness , elbow pain, elbow stiffness, elbow swelling, foot pain, foot stiffness, foot swelling, hand pain, hand stiffness, hand swelling, hip pain, hip stiffness, hip swelling, knee pain, knee stiffness, knee swelling, shoulder pain, shoulder stiffness, shoulder swelling, wrist pain, wrist stiffness, wrist swelling Integumentary: Denies pruritus, Denies rash Neurological: Reports weakness Psychiatric: Reports anxiety, Reports sadness/tearfulness Endocrine: Denies fatigue, Denies weight change Past Medical History Past Medical History: Cancer, Diabetes Mellitus, GERD/Reflux, Hyperlipidemia, Hypertension, Liver Disease, Pulmonary Embolus (PE), Skin Disorder, Thyroid Disorder Additional Past Medical History / Comment(s): heart murmer, colon cancer, liver cancer, MELANOMA, liver lesions on CT scan 09/10 History of Any Multi-Drug Resistant Organisms: ESBL Date of last positivie culture/infection: 05/20/16 MDRO Source:: E.COLI URINE Past Surgical History: Bowel Resection, Cholecystectomy, Hysterectomy Additional Past Surgical History / Comment(s): BOWEL RESECTION 10/2013- colostomy /later reversal. bilateral oopherectomy, exploratory laperotomy, SURG RT THIGH D/T MELANOMA, exploratory laparotomy with sigmoidectomy, loop colostomy with colostomy reversal, resection of melanoma, total abdominal hysterectomy with bilateral salpingo-oophorectomy, EGD and colonoscopy 2014, necrotizing fasciitis of the right labia post 9 surgical interventions an initial wound greater than 45 cm Past Anesthesia/Blood Transfusion Reactions: No Reported Reaction Past Psychological History: Anxiety Additional Psychological History / Comment(s): SEASONAL AFFECTIVE DISORDER Smoking Status: Never smoker Past Alcohol Use History: None Reported Past Drug Use History: None Reported - Past Family History Mother Family Medical History: Diabetes Mellitus, Hypertension Father Family Medical History: Renal Disease Brother(s) Family Medical History: No Reported History Sister(s) Family Medical History: Cancer, Diabetes Mellitus Additional Family Medical History / Comment(s): Colon Medications and Allergies Home Medications Medication Instructions Recorded Confirmed Type INSULIN LISPRO (humaLOG) [humaLOG See Protocol SQ AC-TID 12/08/15 07/07/16 History (formulary)] Amitriptyline HCl [Elavil] 25 mg PO HS 02/18/16 07/07/16 History Gabapentin [Neurontin] 100 mg PO TID 02/18/16 07/07/16 History Levothyroxine Sodium [Synthroid] 175 mcg PO DAILY 05/20/16 07/07/16 History Ondansetron HCl [Zofran] 4 mg PO Q6H PRN 05/20/16 07/07/16 History ALPRAZolam [Xanax] 0.5 mg PO HS 07/07/16 07/07/16 History Dronabinol [Marinol] 5 mg PO BID PRN 07/07/16 07/07/16 History Rivaroxaban [Xarelto] 20 mg PO DAILY 07/07/16 07/07/16 History Allergies Allergy/AdvReac Type Severity Reaction Status Date / Time No Known Allergies Allergy Verified 07/07/16 15:55 Physical Exam Vitals: Vital Signs Temp Pulse Pulse Resp BP BP Pulse Ox 07/08/16 04:00 97.0 F L 89 18 128/63 95 07/08/16 03:45 97.1 F L 91 18 119/64 97 07/08/16 01:53 97.1 F L 91 18 119/64 97 07/08/16 00:28 95 16 122/60 99 05/12/17 21:42 97.5 F L 94 18 116/60 99 07/07/16 20:42 97.0 F L 93 16 120/66 99 07/07/16 19:14 97.4 F L 101 H 16 117/60 97 07/07/16 18:11 97.5 F L 95 18 126/58 99 07/07/16 17:14 97.2 F L 110 H 18 118/68 98 Intake and Output 07/07/16 07/08/16 07/08/16 22:59 06:59 14:59 Intake Total 700 Output Total 100 Balance -100 700 Intake: IV 700 Sodium Chloride 0.9% 1, 700 000 ml @ 100 mls/hr IV . Q10H ONE Rx#:[id number] Output: Urine 100 Uretheral (Fitzpatrick) 100 Other: Voiding Method Indwelling Catheter Weight 110.5 kg - Constitutional General appearance: average body habitus, mild distress - EENT Eyes: EOMI, PERRLA, no ptosis, scleral icterus ENT: hard of hearing, NA/AT, pharyngeal erythema, no thrush Ears: bilateral: normal - Neck Neck: lymphadenopathy, normal ROM, no rigidity, no stridor Carotids: bilateral: upstroke normal Thyroid: bilateral: normal size - Respiratory Respiratory: bilateral: diminished, negative: dullness, rales, rhonchi, wheezing , prolonged expiration - Cardiovascular Rhythm: regular Heart sounds: normal: S1, S2 Abnormal Heart Sounds: systolic murmur, S3 Gallop - Gastrointestinal General gastrointestinal: distended, organomegaly, tenderness, umbilical hernia - Integumentary Integumentary: decreased turgor, ulcer (Right groin area.) - Neurologic Neurologic: CNII-XII intact - Musculoskeletal Musculoskeletal: generalized weakness, strength equal bilaterally - Psychiatric Psychiatric: A&O x's 3, appropriate affect, intact judgment & insight Results CBC & Chem 7: 07/07/16 16:07 07/07/16 16:07 Labs: Abnormal Lab Results - Last 24 Hours (Table) 07/07/16 07/07/16 07/08/16 Range/Units 20:00 20:50 05:56 POC Glucose (mg/dL) 73 L (75-99) mg/dL Plasma Lactic Acid Sacha 5.4 H* (0.7-2.0) mmol/L Urine Appearance Cloudy H (Clear) Urine Protein Trace H (Negative) Urine Blood Small H (Negative) Urine Nitrite Positive H (Negative) Urine Bilirubin 2+ H (Negative) Ur Leukocyte Esterase Small H (Negative) Urine WBC 11 H (0-5) /hpf Urine Mucus Rare H (None) /hpf Thrombosis Risk Factor Assmnt - DVT/VTE Prophylaxis DVT/VTE Prophylaxis: Pharmacologic Prophylaxis ordered, Mechanical Prophylaxis ordered - Choose All That Apply Any of the Below Risk Factors Present?: No Assessment and Plan Plan: Assessment and plan: 1. UTI with sepsis and lactic acidosis. Check urine culture and blood culture , start the patient on Levaquin 750 mg IV piggyback every 24 hours, Zosyn 3.375 g IV piggyback every 6 hours, urine culture, blood culture. 2. Bilateral pulmonary emboli. Continue patient on Xarelto 20 mg orally once every day. 3. History of necrotizing fasciitis of the right groin status post multiple surgical intervention. Continue current local care . 4. Diabetes mellitus type 2. Continue Lantus 24 units at bedtime along with sliding scale insulin. BGM before each meal and at bedtime. 5. Stage IV colon cancer with liver metastasis. Hematology oncology consultation, patient have progressed very bad over the last few weeks and she is currently with significant ascites and multiple masses in her abdomen with significant jaundice currently no hope for any chemotherapy at this time. 6. Hypertension and hypertensive cardiovascular disease. Continue lisinopril 20 mg orally once every day. 7. Hypothyroidism. Continue patient on Synthroid 175 g orally once every day. 8. Bilateral lower extremity edema. Stable. 9. Anxiety and panic attacks. Continue patient on Xanax 0.25 milligrams orally 2 times every day as needed. 10. Diabetic polyneuropathy. Continue gabapentin 100 mg orally 3 times every day and amitriptyline 25 mg at bedtime. 11. Constipation. Continue patient on current bowel care. 12. DVT prophylaxis. Continue Xarelto 15 mg orally bid. 13. GI prophylaxis. Continue patient on PPI. 14. Hospice consult due to metastatic colon cancer and end-of-life care, keep Fitzpatrick catheter for comfort.
--- NOTE | 2016-07-09 14:56 | P.DS ---
Providers Date of admission: 07/07/16 17:13 Attending physician: Marvin Jones Consults: 07/07/16 17:18 Consult Physician Routine Consulting Provider: Marvin Rodriguez Consult Reason/Comments: known Do you want consulting provider notified?: Yes 07/07/16 21:50 Consult Physician Urgent Consulting Provider: Robert Moser Consult Reason/Comments: critical care Do you want consulting provider notified?: Yes Primary care physician: Haris Mcghee [facility] Course: This is a 60-year-old female one of Dr. Mcghee with a previous medical history significant for hypertension and hypertensive cardiovascular disease, diabetes mellitus type 2, hyperthyroidism, melanoma, obesity, patient was diagnosed with colon cancer back in 2013 underwent partial colectomy has been under the surveillance screening with Dr. Solis when she was diagnosed with recurrence of her disease back in August 2015 after she had a computed tomographic scan that showed a liver metastatic case is ended up going for biopsy that confirmed the diagnosis of adenocarcinoma of the colon and subsequently underwent PET scan in 10/05/2015 and she had a port placed and did receive 4 cycles of chemotherapy in the form of Avastin, 5 floor uracil, and cisplatin, patient ended up seeing a compounding and finishing supervisor at [facility] Dr. Barr, was supposed to remove half of the liver but because of the advanced nature of that metastatic disease and being closer to a blood vessel it was decided to send the patient for more chemotherapy before deciding on any surgical intervention, patient unfortunately developed to have a boil in her right labia back in November 2015 where she was found to have a severe diabetic ketoacidosis after she was admitted to the hospital and she was found to have a glucose of 800 was treated for that and she was found to have an elevated d- dimer for which she underwent CT angiography that showed bilateral pulmonary emboli was started on heparin drip at that time she was admitted to the intensive care unit at our institution and she was seen by pulmonary medicine as well as by oncology and she was complaining of increased pain in the left groin and she was diagnosed with necrotizing fasciitis subsequently she was seen by general surgery Dr. Felipe ended up going for surgery however because of her status she ended up getting transferred to [facility] for further care was intubated and she stayed there for about 2 weeks and after that she went to [facility] on 12/29/2015 and left to [facility] on the [place] for physical therapy rehabilitation and she was under my care at that point up until recently when she was discharged home, since she was followed by hematology oncology, unfortunately patient had progressed and ended up having multiple metastatic disease and a little to have a significant ascites in her abdomen and that she was brought into the emergency department by her family because of significant weakness and not able to do anything patient was jaundiced and developed to have a significant UTI at that time I had a long conversation with the patient and her family and she wanted to be enrolled in hospice at this point in time this was discussed fully with Dr. Elliott her oncologist and he was in agreement for the above plan. Patient urine culture showed gram-negative bacilli, we will start the patient on Augmentin 875 mg orally twice every day, discontinue Levaquin, keep Fitzpatrick catheter in, transfer the patient home with her family for the next 24 hours[facility], patient will be moved from her home to the hospice home in the next 24 hours on Sunday. Discharge diagnoses: 1. UTI with sepsis with lactic acidosis. 2. Bilateral pulmonary emboli. 3. History of necrotizing fasciitis of the right groin status post multiple surgical intervention. 4. Diabetes mellitus type 2. 5. Stage IV colon cancer with liver metastasis. 6. Hypertension and hypertensive cardiovascular disease. 7. Hypothyroidism. 8. Bilateral lower extremity edema. 9. Anxiety and panic attacks. 10. Diabetic polyneuropathy. 11. Constipation. 12. Generalized weakness. 13. Hospice consult for metastatic colon cancer with end-of-life care. 14. Fitzpatrick catheter for comfort. Patient Condition at Discharge: Serious Plan - Discharge Summary New Discharge Prescriptions: Amoxicillin/Potassium Clav [Augmentin 875-125 Tablet] 1 tab PO Q12HR #20 tab Discharge Medication List INSULIN LISPRO (humaLOG) [humaLOG (formulary)] See Protocol SQ AC-TID 12/08/15 [ History] Amitriptyline HCl [Elavil] 25 mg PO HS 02/18/16 [History] Gabapentin [Neurontin] 100 mg PO TID 02/18/16 [History] Levothyroxine Sodium [Synthroid] 175 mcg PO DAILY 05/20/16 [History] Ondansetron HCl [Zofran] 4 mg PO Q6H PRN 05/20/16 [History] ALPRAZolam [Xanax] 0.5 mg PO HS 07/07/16 [History] Dronabinol [Marinol] 5 mg PO BID PRN 07/07/16 [History] Rivaroxaban [Xarelto] 20 mg PO DAILY 07/07/16 [History] Amoxicillin/Potassium Clav [Augmentin 875-125 Tablet] 1 tab PO Q12HR #20 tab [Rx] Insulin Glargine,Hum.rec.anlog [Lantus Solostar] 24 units SQ HS #0 07/09/16 [Rx ] Follow up Appointment(s)/Referral(s): Haris Mcghee MD [Primary Care Provider] - 1-2 days [facility] Visiting Nurse, [NON-STAFF] - Patient Instructions/Handouts: Hospice (DC) Activity/Diet/Wound Care/Special Instructions: [facility]: [phone]. patient to arrive at [facility] home, Sunday-15. Samaria from [facility] is on-call until then and available for any needs. Call [facility] on Sunday for transportation [phone] Discharge Disposition: HOME WITH HOSPICE
--- NOTE | 2016-07-09 17:02 | CONS ---
DATE OF CONSULTATION: 07/08/2016 REASON FOR CONSULTATION: Possible sepsis. HISTORY OF PRESENT ILLNESS: The patient is a 60-year-old female with a past medical history significant for metastatic colon cancer with last chemo in November 2015. The patient also has episode of the necrotizing fasciitis involving the right groin and posterior thigh area. The patient did have surgery. He subsequently was transferred to [facility] after surgery . She did have extensive care followed wound to the right groin is almost healed up. The patient is now presenting to the ER at [facility] with extreme weakness. No energy and unable to do anything. Patient says that she has been helped by her mother and sister. However, the patient is not able to get up and around. Patient did have decreased appetite and decreased oral intake. The patient denies any high-grade fever, rigors or chills. The patient denies having any urinary symptoms. The patient denies having any chest pain, shortness of breath or cough. The patient noticed to have some abdominal distention, but denies significant diarrhea or any burning or frequency of urine. Patient with these symptoms presented to the ER. The patient has been evaluated by the ER physician. She was noted to have elevated white count of 13.4 with elevated lactic acid of 7.2 and elevated liver enzymes with concern for possible sepsis. The patient has been admitted to the hospital. She was taking on antibiotics in the form of Zosyn and Levaquin. ID was consulted for further recommendation regarding her antibiotic therapy. The patient did have a chest x-ray which showed bilateral effusion, increasing atelectasis right lower lobe compared to last exam. REVIEW OF SYSTEMS: CONSTITUTIONAL: Positive for weakness but no fever. EYES: No complaint. ENT: No complaint. RESPIRATORY: Some shortness of breath. No cough. CARDIOVASCULAR: No complaint. GENITOURINARY: No complaint. GASTROINTESTINAL: As per HPI. MUSCULOSKELETAL: No complaint. INTEGUMENTARY: No complaint. PSYCHOLOGIC: No complaint. ENDOCRINE: No complaint. NEUROLOGICAL: Generalized weakness, no focal weakness though. PAST MEDICAL HISTORY: Significant for metastatic colon cancer with metastasis to the liver, fasciitis, diabetes mellitus, hypertension, hyperlipidemia, pulmonary embolism, hypothyroidism. PAST SURGICAL HISTORY: Bowel resection, cholecystectomy, hysterectomy and extensive debridement of the skin and soft tissue on the groin and posterior thigh area. SOCIAL HISTORY: No history of smoking, drinking or drug use. FAMILY HISTORY: Sister with history of diabetes and colon cancer. Mother with history of hypertension, diabetes. ALLERGIES: No known drug allergies. Medications currently include the patient is on Xanax, Elavil, Neurontin, Dilaudid, Lantus, Humalog, levofloxacin, Synthroid, pip-tazobactam, and Xarelto. On examination, blood pressure is 117/67 with a pulse of 98, temperature 97. She is 91% on room air. General description is a middle-age female lying in bed in no distress. No tachypnea or accessory muscles of respiration use. HEENT examination shows scleral icterus is positive. Oral mucous membranes dry. NECK: Trachea central. There is no thyromegaly. LUNGS: Unlabored breathing. Clear to auscultation anteriorly. No wheeze or crackles. HEART: S1, S2. Regular rate and rhythm. ABDOMEN: Soft, slightly distended. No guarding or rigidity. EXTREMITIES: Trace edema of feet. SKIN: Examination of right groin wound with good granulation tissue. No surrounding erythema, swelling or redness. NEUROLOGICAL: The patient is awake, alert, oriented x3. Mood and affect normal. LABS: BUN of 23 with a creatinine 1.20. Liver enzymes are elevated. Hemoglobin is 10.3, white count 13.4. Urine was not significantly positive. Chest x-ray report as mentioned above. DIAGNOSTIC IMPRESSION AND PLAN: Patient admitted to the hospital with generalized weakness, no energy in a patient who was noticed to have a significantly elevated liver enzymes with evidence of lactic acidosis and elevated white count. Her symptoms, more likely related to metabolic and possibly related to her underlying metastatic colon cancer with possible progression of her disease. Clinical suspicion remains to be low for infectious etiology and white count is slightly elevated, however, the patient is not running fever, does not look toxic and no clear focus of infection. PLAN: 1. Blood culture has been obtained and urine culture, will be followed. 2. Aggressive IV fluid. 3. May continue short course of antibiotics while awaiting for the culture to finalize. However, if the culture remains negative will recommend discontinuation of the same. 4. As the patient is known to Dr. Rodriguez, patient will be signed out to him on Sunday. Thank you for this consultation. Family was present at beside. Their questions and concerns were answered. SKY
--- NOTE | 2016-07-11 16:54 | CDI ---
In responding to this query, please exercise your independent professional judgment. The [facility] Coding Staff and Clinical Documentation Specialists appreciate your assistance in clarifying documentation, maintaining compliance with coding guidelines, accurately documenting patients condition and capturing severity of illness. The fact that a question is asked does not imply that any particular answer is desired or expected. Communication forms are a method of clarifying documentation and are not made part of the Legal Health Record. Thank you in advance for your clarification. Last Revision, April 2015 Lorenzo Mcmanus [address] [facility] [place] [address] Documentation Clarification Form Date: 07/11/2016 4:45:00 PM From: Gaby Blood Admit Date: 07/07/2016 5:13:00 PM Patient Name: Afsaneh Peck Visit Number: [id number] Discharge Date: 07/11/16 Dr. Mona Membreno 60 year old female admitted with sepsis. Hx of colon ca with liver mets. Previous admission was found to have bilateral pulmonary emboli. Currently treated with Heparin drip and discharged on Zarelto. Please further clarify if the PE was: Acute PE Chronic PE Other, please specify Clinically unable to determine Please document confirmation of the diagnosis in your discharge summary, along with its associated clinical indicators (i.e., signs, symptoms, findings, treatments, monitoring). If this condition was ruled out or documented in error, please indicate in your progress notes and/or discharge summary. FYI: Press F11 to launch patient chart Place X here if this finding has no clinical significance, is not applicable or if you are not able to provide any additional documentation. MARIA C Shirley, CCS, [facility] Certified I-10 Bank Examiner/Pathology Technologist/Bank Examiner II If you have any questions or concerns please contact Madalyn Casillas, Yeast Culture Operator, Lorenzo Mcmanus @ [phone] [facility]
--- NOTE | 2016-07-11 17:02 | CDI ---
In responding to this query, please exercise your independent professional judgment. The [facility] Coding Staff and Clinical Documentation Specialists appreciate your assistance in clarifying documentation, maintaining compliance with coding guidelines, accurately documenting patients condition and capturing severity of illness. The fact that a question is asked does not imply that any particular answer is desired or expected. Communication forms are a method of clarifying documentation and are not made part of the Legal Health Record. Thank you in advance for your clarification. Last Revision, April 2015 Lorenzo Mcmanus [address] [facility] [place] [address] Documentation Clarification Form Date: 07/11/2016 4:56:00 PM From: Gaby Blood Admit Date: 07/07/2016 5:13:00 PM Patient Name: Afsaneh Peck Visit Number: [id number] Discharge Date: 07/11/16 Dr. Mona Membreno, 60 year old female admitted with sepsis. Hx of colon cancer with liver mets. Patient with ascites. Please clariy further if the ascites as: Ascites, other/unspecified Ascites, malignant Other please specify Clinically unable to determine Please document confirmation of the diagnosis in your discharge summary, along with its associated clinical indicators (i.e., signs, symptoms, findings, treatments, monitoring). If this condition was ruled out or documented in error, please indicate in your progress notes and/or discharge summary. FYI: Press F11 to launch patient chart Place X here if this finding has no clinical significance, is not applicable or if you are not able to provide any additional documentation. MARIA C Shirley, CCS, [facility] Certified I-10 Manager Mechanical Maintenance/Stem Setter/Manager Mechanical Maintenance II If you have any questions or concerns please contact Madalyn Casillas, Secondary Spanish Teacher, Lorenzo Mcmanus @ [phone] [facility]
--- NOTE | 2016-07-21 10:47 | CDI ---
In responding to this query, please exercise your independent professional judgment. The [facility] Coding Staff and Clinical Documentation Specialists appreciate your assistance in clarifying documentation, maintaining compliance with coding guidelines, accurately documenting patients condition and capturing severity of illness. The fact that a question is asked does not imply that any particular answer is desired or expected. Communication forms are a method of clarifying documentation and are not made part of the Legal Health Record. Thank you in advance for your clarification. Last Revision, April 2015 Lorenzo Mcmanus [address] [facility] [place] [address] Documentation Clarification Form Date: 07/11/2016 4:45:00 PM From: Gaby Blood Admit Date: 07/07/2016 5:13:00 PM Patient Name: Afsaneh Peck Visit Number: [id number] Discharge Date: 07/21/16 Dr. Mona Membreno 60 year old female admitted with sepsis. Hx of colon ca with liver mets. Previous admission was found to have bilateral pulmonary emboli. Currently treated with Heparin drip & discharged on Zarelto. Please further clarify if the PE was: Acute PE Chronic PE Other, please specify Clinically unable to determine Please document confirmation of the diagnosis in your discharge summary, along with its associated clinical indicators (i.e., signs, symptoms, findings, treatments, monitoring). If this condition was ruled out or documented in error, please indicate in your progress notes and/or discharge summary. FYI: Press F11 to launch patient chart Place X here if this finding has no clinical significance, is not applicable or if you are not able to provide any additional documentation. MARIA C Shirley, CCS, [facility] Certified I-10 School Leader/[place]/School Leader II If you have any questions or concerns please contact Madalyn Casillas, Mat Weaver, Lorenzo Mcmanus @ [phone] [facility]
--- NOTE | 2016-07-21 10:51 | CDI ---
In responding to this query, please exercise your independent professional judgment. The [facility] Coding Staff and Clinical Documentation Specialists appreciate your assistance in clarifying documentation, maintaining compliance with coding guidelines, accurately documenting patients condition and capturing severity of illness. The fact that a question is asked does not imply that any particular answer is desired or expected. Communication forms are a method of clarifying documentation and are not made part of the Legal Health Record. Thank you in advance for your clarification. Last Revision, April 2015 Lorenzo Mcmanus [address] [facility] [place] [address] Documentation Clarification Form Date: 07/11/2016 4:56:00 PM From: Gaby Blood Phone: [phone] Admit Date: 07/07/2016 5:13:00 PM Patient Name: Afsaneh Peck Visit Number: [id number] Discharge Date: 07/21/16 Dr. Mona Membreno 60 year old female admitted with sepsis. Hx of colon cancer with liver mets. Patient with ascites. Please clariy further if the ascites as: Ascites, other/unspecified Ascites, malignant Other please specify Clinically unable to determine Please document confirmation of the diagnosis in your discharge summary, along with its associated clinical indicators (i.e., signs, symptoms, findings, treatments, monitoring). If this condition was ruled out or documented in error, please indicate in your progress notes and/or discharge summary. FYI: Press F11 to launch patient chart Place X here if this finding has no clinical significance, is not applicable or if you are not able to provide any additional documentation. MARIA C Shirley, CCS, [facility] Certified I-10 Wharf Builder/[place]/Wharf Builder II If you have any questions or concerns please contact Madalyn Casillas, Family Support Worker, Lorenzo Mcmanus @ [phone] [facility]
== END 2016-07-09 11:05 | disposition hospice, home (50) | DRG 871 ==
LOC: EC 15:31 → 6ICU 17:13 → 6SEL 22:49
PROVIDERS: ADMIT Internal Medicine Geriatric Medicine; ATTEND Internal Medicine Geriatric Medicine
DX: A41.9 Sepsis, unspecified organism (principal); R65.21 Severe sepsis with septic shock; I26.99 Other pulmonary embolism without acute cor pulmonale; R18.0 Malignant ascites; C78.7 Secondary malignant neoplasm of liver and intrahepatic bile duct; N39.0 Urinary tract infection, site not specified; J98.11 Atelectasis; Z66 Do not resuscitate; E11.42 Type 2 diabetes mellitus with diabetic polyneuropathy; I11.9 Hypertensive heart disease without heart failure; E86.0 Dehydration; Z51.5 Encounter for palliative care; E66.9 Obesity, unspecified; K21.9 Gastro-esophageal reflux disease without esophagitis; E78.5 Hyperlipidemia, unspecified; E03.9 Hypothyroidism, unspecified; F41.0 Panic disorder [episodic paroxysmal anxiety]; K59.00 Constipation, unspecified; Z90.710 Acquired absence of both cervix and uterus; Z90.49 Acquired absence of other specified parts of digestive tract; Z68.35 Body mass index [BMI] 35.0-35.9, adult; Z85.038 Personal history of other malignant neoplasm of large intestine; Z92.3 Personal history of irradiation; Z85.820 Personal history of malignant melanoma of skin; Z92.21 Personal history of antineoplastic chemotherapy; Z90.722 Acquired absence of ovaries, bilateral; Z79.4 Long term (current) use of insulin; Z79.01 Long term (current) use of anticoagulants; Z79.899 Other long term (current) drug therapy; Z80.0 Family history of malignant neoplasm of digestive organs; Z82.49 Family history of ischemic heart disease and other diseases of the circulatory system; Z83.3 Family history of diabetes mellitus; Z84.1 Family history of disorders of kidney and ureter
CPT/HCPCS: 36415; 71020; 76705; 80053; 81001; 82550; 82553; 83605; 83735; 84100; 84484; 85025; 85610; 85730; 87040; 87077; 87086; 87186; 93005; 96361; 96365; 96366; 96367; 99285